=== PATIENT | female | born 1940 | race Caucasian/White ===

== ENCOUNTER 2017-06-16 15:52 | Emergency (ER) | payer MEDICARE ==
[2017-06-16 16:14] VITALS: BP 145/83; PULSE 102; TEMP 98; BMI 35.5
--- NOTE | 2017-06-16 18:43 | PDOC ---
Attending Attestation - Resident Resident Name: MitchmartinMark - ED Attending Attestation I have performed the following: I have examined & evaluated the patient, The case was reviewed & discussed with the resident, I agree w/resident's findings & plan, Exceptions are as noted - HPI HPI: 06/16/17 18:31 76 year old female c/ history of HTN, HLD from [facility] requesting exchange of left volar splint wrist. The patient recently had a fall and sustained a left ankle and left wrist fracture. The patient was seen at [facility] where she was treated with surgery with pins in left ankle and left wrist. Yesterday, pt went to [facility] yesterday to get the splint exchanged because it was causing her discomfort. Noted today that the splint was falling off and came into the ED. Requesting a splint change. Stated that several weeks ago had 2 days of antibiotics for UTI. She thought that she needed longer antibiotics. But denies dysuria, urinary frequency. - Physicial Exam PE: 06/16/17 18:45 GENERAL: AAOx3, in no acute distress HEENT: PERRLA/EOMI CV: RRR, +s1, s2 PULM: CTA b/l Abd: soft, nd, nt EXTREMITIES: LLE with cast around ankle. No discomfort noted. Left wrist: 2+ radial pulse. Noted with external pin but no signs of erythema or drainage. - Medical Decision Making 06/16/17 18:43 Vital Signs Temp Pulse Resp BP Pulse Ox 98 F 102 H 20 145/83 98 06/16/17 15:55 06/16/17 15:55 06/16/17 15:55 06/16/17 15:55 06/16/17 15:55 76 year old female presents with left volar splint exchange. The volar splint was exchanged by me. Pt noted to have an external pin that is NONinfected in left wrist protruding from skin. Will obtain a left wrist xray and talk to orthopedics. Will need to discuss if this is part of the surgery/pinning. Will also obtain a UA/UC
--- NOTE | 2017-06-16 18:45 | PDOC ---
History of Present Illness - General Chief Complaint: Pain Stated Complaint: EVALUATION Time Seen by Provider: 06/16/17 15:57 - History of Present Illness Initial Comments: 06/16/17 18:40 76F w/ hx of HTN, HLD, GERD, and herniated disk presenting from [facility] with chief complaint of "my wrist splint is not done right." Pt reports that she broke her wrist and ankle after an injury falling out of a chair a week ago. She received orthopedic surgery at [facility] on both joints. Several days afterwards, pt states that her wrist splint slid fprward, so she went back to [facility] where they reapplied the splint. However, pt reports that it wasn't properly applied, it is very pruritic, and she is worried about underlying infection. Pt also reports fear of having an unresolved UTI for the past week although she denies dysuria and urinary frequency. 06/16/17 18:48 06/16/17 18:50 Past History - Past Medical History Allergies/Adverse Reactions: Allergies Allergy/AdvReac Type Severity Reaction Status Date / Time Penicillins Allergy Severe Swelling Verified 06/16/17 16:14 egg yolk Allergy Verified 06/16/17 16:14 milk AdvReac Verified 06/16/17 16:14 Home Medications: Ambulatory Orders Aspirin [Aspirin EC] 81 mg PO DAILY 09/23/14 Atorvastatin Ca [Lipitor] 20 mg PO HS 09/23/14 Zolpidem Tartrate [Ambien Cr] 12.5 mg PO HS 09/23/14 Furosemide [Lasix] 20 tab PO DAILY 05/22/17 Metoprolol Tartrate 1 tab PO DAILY 05/22/17 Anemia: No Asthma: Yes Cancer: No Cardiac Disorders: Yes (;"MILD TIA IN 2008") CVA: No COPD: No CHF: No Dementia: No Diabetes: No GI Disorders: No Disorders: No HTN: No Hypercholesterolemia: Yes Liver Disease: No Seizures: No Thyroid Disease: Yes ("A LITTLE LOW" - NO MEDS) Comment:: 06/16/17 18:43 PMH: bone spur, asthma PSH: knee surgery, hemmorroidectomy MEds: aspirin, statin, zolpidem, lasix, metoprolol, tylenol, percocet, Allergies: PCN, Z-pack\\ Social Hx: denies toxic habits - Surgical History Abdominal Surgery: No Appendectomy: No Cardiac Surgery: No Cholecystectomy: No Lung Surgery: No Neurologic Surgery: No Orthopedic Surgery: Yes (ARTHROSCOPY BILATERAL KNEE; CARPAL TUNNEL LEFT;) - Psycho/Social/Smoking Cessation Hx Suicidal Ideation: No Smoking History: Never smoked Have you smoked in the past 12 months: No Hx Alcohol Use: Yes (SELDOM) Drug/Substance Use Hx: No Substance Use Type: Alcohol Hx Substance Use Treatment: No Review of Systems - Review of Systems Comments:: 06/16/17 18:44 GENERAL: No fever, chills, night sweats, or weakness. HEAD, EYES, EARS, NOSE AND THROAT: No change in vision, ear pain, or sore throat CARDIOVASCULAR: No chest pain or palpitations RESPIRATORY: No cough, wheezing, or hemoptysis. GASTROINTESTINAL: + nausea, no vomiting, diarrhea, constipation, or blood in the stool. GENITOURINARY: No dysuria, frequency, or urgency MUSCULOSKELETAL: + joint or muscle swelling or pain. SKIN: No rashes, + pruritis ENDOCRINE: No increased thirst. No abnormal weight change NEUROLOGIC: No headache, dizziness, loss of consciousness, or change in strength /sensation. *Physical Exam - Vital Signs Last Vital Signs Temp Pulse Resp BP Pulse Ox 98 F 102 H 20 145/83 98 06/16/17 15:55 06/16/17 15:55 06/16/17 15:55 06/16/17 15:55 06/16/17 15:55 - Physical Exam Comments: 06/16/17 18:45 GENERAL: Awake, alert, and fully oriented, in mild distress HEAD: normocephalic, atraumatic HEENT: PERRLA, EOMI, sclera anicteric, conjunctiva clear, hearing grossly normal , nares patent, oropharynx clear without exudate, moist mucosa NECK: Normal ROM, supple, no lymphadenopathy, JVD, or masses HEART: Regular rate and rhythm, normal S1 and S2, no murmurs, rubs or gallops, peripheral pulses normal and equal bilaterally. LUNGS: CTAB, no wheezing, no rales ABDOMEN: Soft, mildly tender in suprapubic region, nondistended, normoactive bowel sounds. No guarding, no rebound. No masses EXTREMITIES: L wrist splint was removed revealing a clean, dry healing scar with external pins. No erythema, non-warm to touch, no swelling. NEUROLOGICAL: Cranial nerves II through XII grossly intact. Normal speech, no focal sensorimotor deficits Medical Decision Making - Medical Decision Making 06/16/17 18:49 76F w/ hx of HTN, HLD, GERD, and herniated disk presenting from [facility] with chief complaint of "my wrist splint is not done right." L wrist splint was removed, and a new volar splint was applied. An chava bandage was applied to her R elbow to reduce her pain. UA: 1+ leuk esterase Wrist XR: shows 2 pins in distal radius 06/16/17 18:51 06/16/17 19:04
[2017-06-16 18:51] LABS: URINE APPEARANCE CLEAR; URINE BILIRUBIN NEGATIVE (NEGATIVE); URINE BLOOD NEGATIVE (NEGATIVE); URINE COLOR LTYELLOW; URINE GLUCOSE (UA) NEGATIVE (NEGATIVE); URINE KETONE NEGATIVE (NEGATIVE); URINE NITRITE NEGATIVE (NEGATIVE); URINE PROTEIN NEGATIVE (NEGATIVE); URINE UROBILINOGEN NEGATIVE mg/dL (0.2-1.0)
[2017-06-16 18:56] LABS: URINE LEUK ESTERASE 1+ (NEGATIVE)
--- NOTE | 2017-06-16 19:59 | PDOC ---
*Physical Exam - Vital Signs Last Vital Signs Temp Pulse Resp BP Pulse Ox 98 F 102 H 20 145/83 98 06/16/17 15:55 06/16/17 15:55 06/16/17 15:55 06/16/17 15:55 06/16/17 15:55 ED Treatment Course - ADDITIONAL ORDERS Additional order review: Laboratory Results 06/16/17 18:05 Urine Color Ltyellow Urine Appearance Clear Urine pH 5.0 Urine Protein Negative Urine Glucose (UA) Negative Urine Ketones Negative Urine Blood Negative Urine Nitrite Negative Urine Bilirubin Negative Urine Urobilinogen Negative Ur Leukocyte Esterase 1+ H Medical Decision Making - Medical Decision Making 06/16/17 19:51 Left wrist xray reviewed, pending official radiology read. Distal radius fracture s/p pinning. Case discussed with orthopedist Chad Paige. States that these external pins are part of the procedure. She can get the pins pulled out as an outpatient by her orthopedist. UA noted with 1+ leuk. Will discharge with levaquin. New volar splint placed. Case discussed with nurse at [facility]. [facility] 06/16/17 19:54 As of note: senior living note: 06/13: admitted to [facility]. Had L radial metaphysis and L fibula fracture. Had ORIF and closed reduction on 06/09. Hx of HTN, asthma, GERD, hypothyroidism, HLD. *DC/Admit/Observation/Transfer Diagnosis at time of Disposition: UTI (urinary tract infection) Qualifiers: Urinary tract infection type: site unspecified Hematuria presence: without hematuria Qualified Code(s): N39.0 - Urinary tract infection, site not specified Left wrist fracture Qualifiers: Encounter type: initial encounter Fracture type: closed Qualified Code(s): S62.102A - Fracture of unspecified carpal bone, left wrist, initial encounter for closed fracture - Discharge Dispostion Disposition: [facility]ILITY Condition at time of disposition: Good - Referrals Referrals: Imani Lim MD [Primary Care Provider] - - Patient Instructions Printed Discharge Instructions: DI for Wrist Fracture, DI for Urinary Tract Infection (UTI) Additional Instructions: Take 500 mg levofloxacin daily for 5 days. Start on 06/17. Patient received first dose today. Take 1 tablet of percocet every 6 to 8 hours as needed for severe pain x 3 days. Take 1 tablet of 5 mg flexeril every 8 hours as needed for pain x 3 days. Follow up with the orthopedist. A new splint was applied here in the ER.
[2017-06-16 20:03] LABS: URINE MUCUS RARE; URINE RBC 1 /hpf (0-3); URINE WBC 7 /hpf (3-5)
[2017-06-16] MEDS ORDERED: LEVOFLOXACIN 500 MG TABLET (FP) PO ONE (21:39)
[2017-06-16] MEDS ORDERED: LEVOFLOXACIN 500 MG TABLET (FP) ONE (22:00)
== END 2017-06-16 22:45 ==
LOC: JER 15:52
PROC: 2W3DX1Z Immobilization of Left Lower Arm using Splint (ICD-10-PCS; principal; 2017-06-16)
DX: S52.592D Other fractures of lower end of left radius, subsequent encounter for closed fracture with routine healing (principal); N39.0 Urinary tract infection, site not specified; W19.XXXD Unspecified fall, subsequent encounter; I10 Essential (primary) hypertension; E78.00 Pure hypercholesterolemia, unspecified; K21.9 Gastro-esophageal reflux disease without esophagitis
CPT/HCPCS: 29125; 73110-TC-LT; 81003; 81015; 87086; 99283-25

== ENCOUNTER 2017-10-10 14:20 | Emergency (ER) | payer MEDICARE ==
[2017-10-10 15:11] VITALS: BMI 33.0
[2017-10-10] MEDS ORDERED: ACETAMINOPHEN 500 MG TABLET (FP) PO ONE (15:34)
[2017-10-10] MEDS ORDERED: ACETAMINOPHEN 325 MG TABLET (FP) ONE (15:40)
--- NOTE | 2017-10-10 16:01 | PDOC ---
History of Present Illness - General Chief Complaint: Weakness Stated Complaint: FALL Time Seen by Provider: 10/10/17 14:56 - History of Present Illness Initial Comments: 10/10/17 15:56 "The patient is a 77 year old female resident from [facility] ( discharged today), with a significant past medical history of HTN, HLD who presents to the emergency department with generalized weakness. Patient was discharged from [place], where she had been residing for 3 motns, and arrived home today. Upon arrival, patient went to use the restroom but was unable to lift herself off the seat afterwards. She lowered herself to the ground. Denies falling, denies headstrike/LOC. Pt states she sat on the floor until help arrived. Pt states that she is normally wheelchair bound and is unable to ambulate unassisted. She was supposed to have a MACHINE SET UP today, but due to insurance issues, she will not have a MACHINE SET UP until tomorrow. Pt has no complaints at this time. Patient denies chest pain, headache or dizziness. Patient denies fever, chills, abdominal pain, nausea, vomit, diarrhea or constipation. Patient denies dysuria , frequency, urgency or hematuria. Patient denies sick contacts or recent travel. Past History - Past Medical History Allergies/Adverse Reactions: Allergies Allergy/AdvReac Type Severity Reaction Status Date / Time Penicillins Allergy Severe Swelling Verified 10/10/17 15:17 egg yolk Allergy Verified 10/10/17 15:17 milk AdvReac Verified 10/10/17 15:17 Home Medications: Ambulatory Orders Alendronate Na [Fosamax] 70 mg PO Q7D 10/10/17 Atorvastatin Ca [Lipitor] 20 mg NR DAILY 10/10/17 Famotidine 10 mg PO DAILY 10/10/17 Levothyroxine [Synthroid -] 25 mcg PO DAILY 10/10/17 Metoprolol Tartrate 25 mg PO DAILY 10/10/17 Mometasone Furoate 50 mcg PO BID 10/10/17 Montelukast Na [Singulair -] 10 mg PO DAILY 10/10/17 Omeprazole 10 mg PO DAILY 10/10/17 Trazodone HCl 100 mg PO DAILY 10/10/17 Anemia: No Asthma: Yes Cancer: No Cardiac Disorders: Yes (;"MILD TIA IN 2008") CVA: No COPD: No CHF: No Dementia: No Diabetes: No GI Disorders: No Disorders: Yes (GERD) HTN: No Hypercholesterolemia: Yes Liver Disease: No Seizures: No Thyroid Disease: Yes ("A LITTLE LOW" - NO MEDS) - Surgical History Abdominal Surgery: No Appendectomy: No Cardiac Surgery: No Cholecystectomy: No Lung Surgery: No Neurologic Surgery: No Orthopedic Surgery: Yes (ARTHROSCOPY BILATERAL KNEE; CARPAL TUNNEL LEFT;) - Immunization History Immunization Up to Date: Yes - Suicide/Smoking/Psychosocial Hx Smoking History: Unknown if ever smoked Have you smoked in the past 12 months: No Information on smoking cessation initiated: No Hx Alcohol Use: Yes (Occasional) Drug/Substance Use Hx: No Substance Use Type: Alcohol Hx Substance Use Treatment: No Review of Systems - Review of Systems Comments:: 10/10/17 16:00 "GENERAL/CONSTITUTIONAL: +generalized weakness. No fever or chills. HEAD, EYES, EARS, NOSE AND THROAT: No change in vision. No ear pain or discharge. No sore throat. CARDIOVASCULAR: No chest pain or shortness of breath. RESPIRATORY: No cough, wheezing, or hemoptysis. GASTROINTESTINAL: No nausea, vomiting, diarrhea or constipation. GENITOURINARY: No dysuria, frequency, or change in urination. MUSCULOSKELETAL: No joint or muscle swelling or pain. No neck or back pain. SKIN: No rash NEUROLOGIC: No headache, vertigo, loss of consciousness, or change in strength/ sensation. ENDOCRINE: No increased thirst. No abnormal weight change. HEMATOLOGIC/LYMPHATIC: No anemia, easy bleeding, or history of blood clots. ALLERGIC/IMMUNOLOGIC: No hives or skin allergy. " *Physical Exam - Vital Signs Last Vital Signs Temp Pulse Resp BP Pulse Ox 97.5 F L 74 14 124/75 96 10/10/17 14:57 10/10/17 14:57 10/10/17 14:57 10/10/17 14:57 10/10/17 14:57 - Physical Exam Comments: 10/10/17 16:01 "GENERAL: Awake, alert, and fully oriented, in no acute distress HEAD: No signs of trauma EYES: PERRLA, EOMI, sclera anicteric, conjunctiva clear ENT: Auricles normal inspection, hearing grossly normal, nares patent, oropharynx clear without exudates. Moist mucosa NECK: Nontender, no stepoffs, Normal ROM, supple, no lymphadenopathy, JVD, or masses LUNGS: Breath sounds equal, clear to auscultation bilaterally. No wheezes, and no crackles HEART: Regular rate and rhythm, normal S1 and S2, no murmurs, rubs or gallops ABDOMEN: Soft, nontender, normoactive bowel sounds. No guarding, no rebound. No masses EXTREMITIES: Normal range of motion, no edema. No clubbing or cyanosis. No cords, erythema, or tenderness NEUROLOGICAL: Cranial nerves II through XII intact. 5/5 strength and sensation in all extremities, Normal speech, normal gait SKIN: Warm, Dry, normal turgor, no rashes or lesions noted. " ED Treatment Course - LABORATORY CBC & Chemistry Diagram: 10/10/17 15:20 10/10/17 16:00 - RADIOLOGY Radiology Studies Ordered: Category Date Time Status HEAD CT WITHOUT CONTRAST [CT] Stat CT Scan 10/10/17 15:32 Ordered CHEST PA & LAT [RAD] Stat Radiology 10/10/17 15:20 Ordered Medical Decision Making - Medical Decision Making 10/10/17 16:02 77 F with generalized weakness, likely deconditioned 2/2 prolonged stay in nursing facility. Pt denies any acute onset of weakness. Pt with no acute complaints in ER. Normal neuro exam. Normal vitals. No evidence of infectious process or toxic/metabolic derangement as etiology of weakness. - Labs, UA - SW to confirm home health aide services 10/10/17 18:36 CBC,CMP WBC 10.9 K/mm3 (4.0-10.0) H 10/10/17 15:20 RBC 4.29 M/mm3 (3.60-5.2) 10/10/17 15:20 Hgb 13.4 GM/dL (10.7-15.3) 10/10/17 15:20 Hct 39.4 % (32.4-45.2) 10/10/17 15:20 MCV 91.9 fl (80-96) 10/10/17 15:20 MCH 31.3 pg (25.7-33.7) 10/10/17 15:20 MCHC 34.0 g/dl (32.0-36.0) 10/10/17 15:20 RDW 13.8 % (11.6-15.6) 10/10/17 15:20 Plt Count 224 K/MM3 (134-434) 10/10/17 15:20 MPV 8.5 fl (7.5-11.1) 10/10/17 15:20 Neutrophils % 63.7 % (42.8-82.8) 10/10/17 15:20 Lymphocytes % 28.4 % (8-40) 10/10/17 15:20 Monocytes % 5.7 % (3.8-10.2) 10/10/17 15:20 Eosinophils % 1.5 % (0-4.5) 10/10/17 15:20 Basophils % 0.7 % (0-2.0) 10/10/17 15:20 Sodium 139 mmol/L (136-145) 10/10/17 16:00 Potassium 4.0 mmol/L (3.5-5.1) 10/10/17 16:00 Chloride 105 mmol/L (98-107) 10/10/17 16:00 Carbon Dioxide 27 mmol/L (21-32) 10/10/17 16:00 Anion Gap 7 (8-16) L 10/10/17 16:00 BUN 14 mg/dL (7-18) 10/10/17 16:00 Creatinine 0.7 mg/dL (0.55-1.02) 10/10/17 16:00 Creat Clearance w eGFR > 60 (>60) 10/10/17 16:00 Random Glucose 103 mg/dL (74-106) 10/10/17 16:00 Calcium 8.6 mg/dL (8.5-10.1) 10/10/17 16:00 Total Bilirubin 0.5 mg/dL (0.2-1.0) 10/10/17 16:00 AST 8 U/L (15-37) L 10/10/17 16:00 ALT 17 U/L (12-78) 10/10/17 16:00 Alkaline Phosphatase 129 U/L (45-117) H 10/10/17 16:00 Creatine Kinase 35 IU/L (26-192) 10/10/17 16:00 Troponin I < 0.02 ng/ml (0.00-0.05) 10/10/17 16:00 Total Protein 6.8 g/dl (6.4-8.2) 10/10/17 16:00 Albumin 3.3 g/dl (3.4-5.0) L 10/10/17 16:00 TSH 2.66 uIU/ml (0.358-3.74) 10/10/17 16:00 Labs unremarkable. CXR and Head CT wnl. UA negative. Pt reassessed - states that she continues to feel well. Pt states that she feels comfortable going home at this time. Per pt report, she has a MACHINE SET UP coming to assist her in the morning, though we were unable to confirm this. Nonetheless , pt wishes to go home. I had lengthy discussion with pt about her safety at home, and she understands that she should activate EMS if she feels unable to care for herself. Pt is well appearing with normal vitals. Labs and imaging unremarkable. Clinically stable for DC at this time. *DC/Admit/Observation/Transfer Diagnosis at time of Disposition: Weakness - Discharge Dispostion Disposition: HOME - Referrals Referrals: Imani Lim MD [Primary Care Provider] - - Patient Instructions Printed Discharge Instructions: DI for Muscle Weakness Additional Instructions: Your bloodwork and tests were all normal today. You should have a home health aide coming to assist you tomorrow. If the aide does not show up and you find you are unable to care for yourself, call 911 and return to the ER. If you experience any fevers, pain, or worsening symptoms, return to the ER immediately. Otherwise, follow up with your primary doctor within 1 week. - Post Discharge Activity - Attestations Physician Attestion: 10/10/17 19:36 I, Dr. Shashi Marin MD, attest that this document has been prepared under my direction and personally reviewed by me in its entirety. I further attest, that it accurately reflects all work, treatment, procedures and medical decision -making performed by me.
[2017-10-10 16:19] LABS: BASOPHIL 0.7 % (0-2.0); EOSINOPHIL 1.5 % (0-4.5); MCH 31.3 pg (25.7-33.7); MEAN CELL VOLUME 91.9 fl (80-96); MEAN PLT VOLUME 8.5 fl (7.5-11.1); NEUTROPHILS 63.7 % (42.8-82.8); PLATELET COUNT 224 K/MM3 (134-434); RDW 13.8 % (11.6-15.6); WHITE BLOOD COUNT 10.9 K/mm3 (4.0-10.0)
[2017-10-10 16:48] LABS: ALBUMIN 3.3 g/dl (3.4-5.0); ALK PHOS 129 U/L (45-117); ANION GAP 7 (8-16); BILIRUBIN,TOTAL 0.5 mg/dL (0.2-1.0); CALCIUM 8.6 mg/dL (8.5-10.1); CO2 27 mmol/L (21-32); CPK 35 IU/L (26-192); CREATININE 0.7 mg/dL (0.55-1.02); GLUCOSE,RANDOM 103 mg/dL (74-106); SGOT/AST 8 U/L (15-37); SGPT/ALT 17 U/L (12-78); TOT PROT 6.8 g/dl (6.4-8.2); TROPONIN I < 0.02 ng/ml (0.00-0.05)
[2017-10-10 16:56] LABS: THYROID STIMULATING HORMONE 2.66 uIU/ml (0.358-3.74)
[2017-10-10 19:02] VITALS: BP 124/76; PULSE 78; TEMP 97.6
[2017-10-10 19:19] LABS: URINE APPEARANCE SLCLOUDY; URINE BILIRUBIN NEGATIVE (NEGATIVE); URINE BLOOD NEGATIVE (NEGATIVE); URINE COLOR YELLOW; URINE GLUCOSE (UA) NEGATIVE (NEGATIVE); URINE KETONE NEGATIVE (NEGATIVE); URINE NITRITE NEGATIVE (NEGATIVE); URINE PROTEIN NEGATIVE (NEGATIVE); URINE UROBILINOGEN NEGATIVE mg/dL (0.2-1.0)
[2017-10-10 19:20] LABS: URINE LEUK ESTERASE 3+ (NEGATIVE)
[2017-10-10 19:57] LABS: URINE BACTERIA FEW /hpf (NONE SEEN); URINE MUCUS RARE; URINE RBC <1 /hpf (0-3); URINE WBC 11 /hpf (3-5)
[2017-10-10 22:45] LABS: URINE LEUK ESTERASE 2+ (NEGATIVE)
--- NOTE | 2017-10-11 11:38 | EKG ---
Test Reason : Blood Pressure : / mmHG Vent. Rate : 068 BPM Atrial Rate : 068 BPM P-R Int : 200 ms QRS Dur : 098 ms QT Int : 424 ms P-R-T Axes : 053 035 072 degrees QTc Int : 450 ms NORMAL SINUS RHYTHM LOW VOLTAGE QRS NONSPECIFIC T WAVE ABNORMALITY ABNORMAL ECG NO PREVIOUS ECGS AVAILABLE Confirmed by SUSAN DAVIS MD ([id number]) on 10/11/2017 11:38:24 AM Referred By: Confirmed By:SUSAN DAVIS MD
== END 2017-10-10 23:23 | disposition home or self-care (01) ==
LOC: JER 14:20
DX: M62.81 Muscle weakness (generalized) (principal); K21.9 Gastro-esophageal reflux disease without esophagitis; E78.00 Pure hypercholesterolemia, unspecified; Z86.73 Personal history of transient ischemic attack (TIA), and cerebral infarction without residual deficits; Z99.3 Dependence on wheelchair
CPT/HCPCS: 36415; 70450-TC; 71010-TC; 80053; 81003; 81015; 82550; 84443; 84484; 85025; 87086; 93005; 93010; 99283-25

== ENCOUNTER 2017-10-11 17:54 | Observation (INO) | payer MEDICARE ==
--- NOTE | 2017-10-11 18:10 | PDOC ---
History of Present Illness - General Chief Complaint: Injury Stated Complaint: FALL/PAIN Time Seen by Provider: 10/11/17 18:09 - History of Present Illness Initial Comments: 10/11/17 18:13 Ms. Child is a 77 yo female discharged yesterday from [facility] with pmh of HTN, HLD, osteoarthritis, fracture in leg/wrist in may, and who presented yesterday for evaluation with generalized weakness with no acute findings. Patient arrived home yesterday after a 3 month rehab for above leg/ wrist fracture. Presented for evaluation in the ER for generalized weakness and was discharged home after being evaluated and reporting resolution of symptoms. She presents today as she reports leaning forward and slipping out of her wheelchair earlier this evening and somehow landing on her back and head. She reports pain at these two areas. Also reports currently being sensitive to light currently. The patient denies chest pain, shortness of breath, and dizziness. Denies fever , chills, nausea, vomit, diarrhea and constipation. Denies dysuria, frequency, urgency and hematuria. Allergies: Penicillin Past History - Past Medical History Allergies/Adverse Reactions: Allergies Allergy/AdvReac Type Severity Reaction Status Date / Time Penicillins Allergy Severe Swelling Verified 10/11/17 18:27 egg yolk Allergy Verified 10/11/17 18:27 milk AdvReac Verified 10/11/17 18:27 Home Medications: Ambulatory Orders Alendronate Na [Fosamax] 70 mg PO Q7D 10/10/17 Atorvastatin Ca [Lipitor] 20 mg NR DAILY 10/10/17 Famotidine 10 mg PO DAILY 10/10/17 Levothyroxine [Synthroid -] 25 mcg PO DAILY 10/10/17 Metoprolol Tartrate 25 mg PO DAILY 10/10/17 Mometasone Furoate 50 mcg PO BID 10/10/17 Montelukast Na [Singulair -] 10 mg PO DAILY 10/10/17 Omeprazole 10 mg PO DAILY 10/10/17 Trazodone HCl 100 mg PO DAILY 10/10/17 Anemia: No Asthma: Yes Cancer: No Cardiac Disorders: Yes (;"MILD TIA IN 2008") CVA: No COPD: No CHF: No Dementia: No Diabetes: No GI Disorders: No Disorders: No HTN: No Hypercholesterolemia: Yes Liver Disease: No Seizures: No Thyroid Disease: Yes ("A LITTLE LOW" - NO MEDS) - Surgical History Abdominal Surgery: No Appendectomy: No Cardiac Surgery: No Cholecystectomy: No Lung Surgery: No Neurologic Surgery: No Orthopedic Surgery: Yes (ARTHROSCOPY BILATERAL KNEE; CARPAL TUNNEL LEFT;) - Immunization History Immunization Up to Date: Yes - Suicide/Smoking/Psychosocial Hx Smoking History: Never smoked Have you smoked in the past 12 months: No Hx Alcohol Use: Yes (SELDOM) Drug/Substance Use Hx: No Substance Use Type: Alcohol Hx Substance Use Treatment: No Review of Systems - Review of Systems Comments:: 10/11/17 18:44 GENERAL/CONSTITUTIONAL: +Generalized weakness for the last day. No fever or chills. HEAD, EYES, EARS, NOSE AND THROAT: No change in vision. No ear pain or discharge. No sore throat. CARDIOVASCULAR: No chest pain or shortness of breath RESPIRATORY: No cough, wheezing, or hemoptysis. GASTROINTESTINAL: No nausea, vomiting, diarrhea or constipation. GENITOURINARY: No dysuria, frequency, or change in urination. MUSCULOSKELETAL: +KANE Knee swelling with pain reported to knees, bottom, neck, and right side of head. SKIN: No rash NEUROLOGIC: +Current headache, no vertigo, no loss of consciousness. ENDOCRINE: No increased thirst. No abnormal weight change HEMATOLOGIC/LYMPHATIC: No anemia, easy bleeding, or history of blood clots. ALLERGIC/IMMUNOLOGIC: No hives or skin allergy. *Physical Exam - Physical Exam Comments: 10/11/17 18:44 GENERAL: Awake, alert, and fully oriented, in no acute distress HEAD: No signs of trauma, normocephalic, atraumatic EYES: PERRLA, EOMI, sclera anicteric, conjunctiva clear ENT: Auricles normal inspection, hearing grossly normal, nares patent, oropharynx clear without exudates. Moist mucosa NECK: +Midline neck tenderness to palpation. LUNGS: No distress, speaks full sentences, clear to auscultation bilaterally HEART: Regular rate and rhythm, normal S1 and S2, no murmurs, rubs or gallops, peripheral pulses normal and equal bilaterally. ABDOMEN: Soft, nontender, normoactive bowel sounds. No guarding, no rebound. No masses EXTREMITIES: +Bilateral knee swelling appreciated. NEUROLOGICAL: Cranial nerves II through XII grossly intact. Normal speech, normal gait, no focal sensorimotor deficits SKIN: Warm, Dry, normal turgor, no rashes or lesions noted. ED Treatment Course - LABORATORY CBC & Chemistry Diagram: 10/11/17 19:49 10/11/17 19:49 Medical Decision Making - Medical Decision Making 10/11/17 19:03 Patient signed out to Dr. Pate for further care. *DC/Admit/Observation/Transfer Diagnosis at time of Disposition: Weakness UTI (urinary tract infection) Qualifiers: Urinary tract infection type: site unspecified Hematuria presence: without hematuria Qualified Code(s): N39.0 - Urinary tract infection, site not specified Fall Qualifiers: Encounter type: initial encounter Qualified Code(s): W19.XXXA - Unspecified fall, initial encounter - Discharge Dispostion Condition at time of disposition: Fair Admit: Yes - Referrals - Patient Instructions - Post Discharge Activity
[2017-10-11 18:27] VITALS: BMI 33.0
[2017-10-11] MEDS ORDERED: ACETAMINOPHEN 1000 MG/100 ML VIAL (NON FORMULARY) IVPB ONE (18:43)
--- NOTE | 2017-10-11 19:13 | PDOC ---
Attending Attestation - HPI HPI: 10/11/17 19:37 77 year old female with PMH of frequent falls and was discharged yesterday from 3 months of rehab s/p leg and wrist fracture. The patient presents today with neck pain and knee pain s/p fall this morning. The patient reports that she landed on her knees, but also hit the back of her head. She notes that she was supposed to have a home health aid to help her get around at home, however the aid does not start until tomorrow 10/12/17. <Sheri Baker - Last Filed: 10/11/17 19:36> - Resident Resident Name: Jacob Modi - ED Attending Attestation I have performed the following: I have examined & evaluated the patient, The case was reviewed & discussed with the resident, I agree w/resident's findings & plan, Exceptions are as noted - Physicial Exam PE: 10/11/17 23:51 gen: [id number], uncomfortable head: nc/at neck: no midline ttp heart:" +s1s2 reg Lungs: cta b/l abd: soft, mild suprapubic ttp ext: ecchymosis to R knee, ttp over b/l knees neuro: no focal deficits, cn intact, moving all extremities - Medical Decision Making 10/11/17 19:13 I, Dr. Rachael Pate, DO, attest that this document has been prepared under my direction and personally reviewed by me in its entirety. I further attest, that it accurately reflects all work, treatment, procedures and medical decision -making performed by me. 10/11/17 19:16 a/p: 77yo female s/p fall out of wheelchair -concern for freq falls and home alone -labs suprapubic tenderness, poss uti as cause of weakness has home health aide coming tomorrow will check ekg, cxr, xray spine, knees, ct head and c spine 10/11/17 23:27 pt with uti on labs ct head and c spine negative discussed with [facility] who accepts pt under dr. quinteros at this time, but will switch back to Dr. Rose tomorrow. 10/11/17 23:49 pt agreeable to stay for obs and to accept iv abx <Rachael Pate - Last Filed: 10/11/17 23:54> Discharge Disposition <Sheri Baker - Last Filed: 10/11/17 19:36> - Discharge Dispostion Admit: Yes <Rachael Pate - Last Filed: 10/11/17 23:54> - Diagnosis Weakness, Fall UTI (urinary tract infection) Qualifiers: Urinary tract infection type: site unspecified Hematuria presence: without hematuria Qualified Code(s): N39.0 - Urinary tract infection, site not specified - Discharge Dispostion Condition at time of disposition: Fair - Referrals Referrals: Imani Lim MD [Primary Care Provider] - - Patient Instructions - Post Discharge Activity Heart Score/ECG Review - ECG Intrepretation Comment:: 10/11/17 19:16 sinus tach at 108, nl axis, nl interval, no acute st/t wave findings <Rachael Pate - Last Filed: 10/11/17 23:54>
[2017-10-11] MEDS ORDERED: SODIUM CHLORIDE 0.9% 1000 ML INFUS.BAG IV ONE (19:18)
[2017-10-11] MEDS ORDERED: ACETAMINOPHEN INJECTION 100 ML IVPB ONE (19:36)
[2017-10-11 20:03] LABS: BASO % 0.5 % (0-2.0); EOS % 0.8 % (0-4.5); MCH 31.2 pg (25.7-33.7); MCHC 33.8 g/dl (32.0-36.0); MEAN CELL VOLUME 92.2 fl (80-96); MEAN PLT VOLUME 8.5 fl (7.5-11.1); NEUT % 69.8 % (42.8-82.8); PLATELET COUNT 221 K/MM3 (134-434)
[2017-10-11 20:31] LABS: ALBUMIN 3.2 g/dl (3.4-5.0); ANION GAP 8 (8-16); BILIRUBIN,TOTAL 0.8 mg/dL (0.2-1.0); CALCIUM 8.7 mg/dL (8.5-10.1); CO2 25 mmol/L (21-32); CREATININE 0.7 mg/dL (0.55-1.02); GLUCOSE,RANDOM 95 mg/dL (74-106); SGPT/ALT 17 U/L (12-78); TOT PROT 6.8 g/dl (6.4-8.2)
[2017-10-11 20:33] LABS: ALK PHOS 109 U/L (45-117); TROPONIN I < 0.02 ng/ml (0.00-0.05)
[2017-10-11 20:37] LABS: CPK 65 IU/L (26-192); SGOT/AST 16 U/L (15-37)
[2017-10-11 23:12] LABS: URINE APPEARANCE CLEAR; URINE BILIRUBIN NEGATIVE (NEGATIVE); URINE BLOOD NEGATIVE (NEGATIVE); URINE COLOR LT. YELLOW; URINE GLUCOSE (UA) NEGATIVE (NEGATIVE); URINE KETONE TRACE (NEGATIVE); URINE LEUK ESTERASE NEGATIVE (NEGATIVE); URINE PROTEIN NEGATIVE (NEGATIVE); URINE UROBILINOGEN 0.2 mg/dL (0.2-1.0)
[2017-10-11 23:18] LABS: URINE NITRITE POSITIVE (NEGATIVE)
[2017-10-11 23:21] LABS: URINE BACTERIA FEW /hpf (NONE SEEN); URINE MUCUS RARE; URINE RBC 14 /hpf (0-3); URINE WBC 28 /hpf (3-5)
[2017-10-11] MEDS ORDERED: CIPROFLOXACIN 400 MG/D5W 400 MG/200 ML IVPB IVPB ONE (23:27)
--- NOTE | 2017-10-11 23:28 | HP ---
Admitting History and Physical - Primary Care Physician PCP: Cristhian Rose - Admission Chief Complaint: Neck, B/L Knee Pain History of Present Illness: This is a 77 y/o woman from home with a past medical history of HTN, HLD, TIA ( 2008), Diverticulosis, recently discharged 2 days ago from [facility] s/p leg/wrist fx. Who presents to the ED by ambulance with s/p fall out of wheelchair c/o B/L knee and neck pain. Patient reports landing on her knees, but that she hit the back of her head. Patient reports that she lives alone and is suppose to have a CIGARETTE MAKING MACHINE CATCHER come to her house on 10/12. Patient denies LOC, blurred vision or dizziness. Patient denies fever, chills, cough, SOB, CP, N/V/D , constipation. 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 Cardiovascular: Yes: HTN, Hyperlipdemia Gastrointestinal: Yes: Diverticulosis Musculoskeletal: Yes: Osteoarthritis Endocrine: Yes: Hypothyroidism - Past Surgical History Additional Past Surgical History: Hemorrhoidectomy - Smoking History Smoking history: Never smoked Have you smoked in the past 12 months: No - Alcohol/Substance Use Hx Alcohol Use: Yes (SELDOM) History of Substance Use: reports: None - Social History Usual Living Arrangement: Yes: Alone History of Recent Travel: No Home Medications - Allergies Allergies/Adverse Reactions: Allergies Allergy/AdvReac Type Severity Reaction Status Date / Time Penicillins Allergy Severe Swelling Verified 10/11/17 18:27 egg yolk Allergy Verified 10/11/17 18:27 milk AdvReac Verified 10/11/17 18:27 - Home Medications Home Medications: Ambulatory Orders Alendronate Na [Fosamax] 70 mg PO Q7D 10/10/17 Atorvastatin Ca [Lipitor] 20 mg NR DAILY 10/10/17 Famotidine 10 mg PO DAILY 10/10/17 Levothyroxine [Synthroid -] 25 mcg PO DAILY 10/10/17 Metoprolol Tartrate 25 mg PO DAILY 10/10/17 Mometasone Furoate 50 mcg PO BID 10/10/17 Montelukast Na [Singulair -] 10 mg PO DAILY 10/10/17 Omeprazole 10 mg PO DAILY 10/10/17 Trazodone HCl 100 mg PO DAILY 12/12/17 Review of Systems - Review of Systems Constitutional: reports: No Symptoms Eyes: reports: No Symptoms HENT: reports: No Symptoms Neck: reports: Pain on Movement Cardiovascular: reports: No Symptoms Respiratory: reports: No Symptoms Gastrointestinal: reports: Abdominal Pain Genitourinary: reports: No Symptoms Breasts: reports: No Symptoms Reported Musculoskeletal: reports: Joint Pain (b/l knees) Integumentary: reports: Bruising (R- knee) Neurological: reports: Headache Endocrine: reports: No Symptoms Hematology/Lymphatic: reports: No Symptoms Psychiatric: reports: No Symptoms Pain Intensity: 6 Physical Examination Vital Signs: Vital Signs Temperature 97.6 F 10/11/17 17:54 Pulse Rate 92 H 10/11/17 22:20 Respiratory Rate 18 10/11/17 22:20 Blood Pressure 128/62 10/11/17 22:20 O2 Sat by Pulse Oximetry (%) 100 10/11/17 17:54 Constitutional: Yes: Well Nourished, Obese Eyes: Yes: WNL, Conjunctiva Clear, PERRL HENT: Yes: Atraumatic, Normocephalic, Other (tenderness to mid occiput) Neck: Yes: WNL Cardiovascular: Yes: WNL, Regular Rate and Rhythm, S1, S2 Respiratory: Yes: WNL, Regular, CTA Bilaterally Gastrointestinal: Yes: Abdomen, Obese, Other (suprapubic) Breast(s): Yes: WNL Musculoskeletal: Yes: Other (B/L knee pain) Extremities: Yes: Other (superficial bruise to right knee) Edema: Yes Edema: LLE: 2+, RLE: 2+ Peripheral Pulses WNL: Yes Integumentary: Yes: Bruising (right knee) Neurological: Yes: WNL, Alert, Oriented, Cran Nerves II-XII Intact Psychiatric: Yes: WNL, Alert, Oriented Labs: CBC, BMP 10/11/17 19:49 10/11/17 19:49 Laboratory Results - last 24 hr 10/11/17 10/11/17 10/11/17 19:49 19:49 22:10 WBC 10.0 RBC 4.57 Hgb 14.3 Hct 42.1 MCV 92.2 MCH 31.2 MCHC 33.8 RDW 14.0 Plt Count 221 MPV 8.5 Neutrophils % 69.8 Lymphocytes % 23.3 Monocytes % 5.6 Eosinophils % 0.8 Basophils % 0.5 Sodium 141 Potassium 4.1 Chloride 108 H Carbon Dioxide 25 Anion Gap 8 BUN 14 Creatinine 0.7 Creat Clearance w eGFR > 60 Random Glucose 95 Calcium 8.7 Total Bilirubin 0.8 D AST 16 D ALT 17 Alkaline Phosphatase 109 Creatine Kinase 65 Troponin I < 0.02 Total Protein 6.8 Albumin 3.2 L Urine Color Lt. yellow Urine Appearance Clear Urine pH 6.0 Ur Specific [place] 1.025 Urine Protein Negative Urine Glucose (UA) Negative Urine Ketones Trace H Urine Blood Negative Urine Nitrite Positive Urine Bilirubin Negative Urine Urobilinogen 0.2 Urine WBC (Auto) 28 Urine RBC (Auto) 14 Ur Epithelial Cells Rare Urine Bacteria Few Urine Mucus Rare 10/12/17 10/12/17 07:40 07:40 WBC 6.7 D RBC 3.93 Hgb 12.1 D Hct 36.1 MCV 91.8 MCH 30.7 MCHC 33.4 RDW 13.9 Plt Count 181 MPV 8.5 Neutrophils % 47.8 D Lymphocytes % 40.8 H D Monocytes % 8.2 Eosinophils % 2.5 D Basophils % 0.7 Sodium 142 Potassium 3.9 Chloride 107 Carbon Dioxide 25 Anion Gap 10 BUN 12 Creatinine 0.6 Creat Clearance w eGFR Random Glucose 91 Calcium 8.6 Total Bilirubin AST ALT Alkaline Phosphatase Creatine Kinase Troponin I Total Protein Albumin Urine Color Urine Appearance Urine pH Ur Specific [place] Urine Protein Urine Glucose (UA) Urine Ketones Urine Blood Urine Nitrite Urine Bilirubin Urine Urobilinogen Urine WBC (Auto) Urine RBC (Auto) Ur Epithelial Cells Urine Bacteria Urine Mucus Intake & Output 10/09/17 10/10/17 10/11/17 10/12/17 23:59 23:59 23:59 23:59 Weight 92.986 kg Imaging - Results Chest X-ray: Image Reviewed X-ray: Image Reviewed (bilateral knee, lumbar spine) Cat Scan: Report Reviewed Problem List - Problems (1) Fall Code(s): W19.XXXA - UNSPECIFIED FALL, INITIAL ENCOUNTER Qualifiers: Encounter type: initial encounter Qualified Code(s): W19.XXXA - Unspecified fall, initial encounter (2) Bilateral knee pain Code(s): M25.561 - PAIN IN RIGHT KNEE; M25.562 - PAIN IN LEFT KNEE (3) Neck pain, acute Code(s): M54.2 - CERVICALGIA (4) UTI (urinary tract infection) Code(s): N39.0 - URINARY TRACT INFECTION, SITE NOT SPECIFIED Qualifiers: Urinary tract infection type: site unspecified Hematuria presence: without hematuria Qualified Code(s): N39.0 - Urinary tract infection, site not specified (5) HTN (hypertension) Code(s): I10 - ESSENTIAL (PRIMARY) HYPERTENSION (6) HLD (hyperlipidemia) Code(s): E78.5 - HYPERLIPIDEMIA, UNSPECIFIED (7) History of TIA (transient ischemic attack) Code(s): Z86.73 - PRSNL HX OF TIA (TIA), AND CEREB INFRC W/O RESID DEFICITS (8) DVT prophylaxis Code(s): SLV0139 - Assessment/Plan This is a 77 y/o woman with a PMHx of: HTN, HLD, TIA (2008), Hypothyroid, Diverticulosis. Placed on Observation for placement secondary to s/p Fall, Acute Neck Pain, Bilateral Knee Pain Plan: 1. Fall at home Acute Neck Pain Bilateral Knee Pain - s/p Leg and Wrist Fx- d/cd from Rehab stay x 3 months - Patient lives alone unable to care for herself is wheelchair bound, awaiting CIGARETTE MAKING MACHINE CATCHER assistance - CT Head- neg ICH - CT C-Spine- neg fx - LSP-image reviewed, report pending - Knee Xrays- image reviewed, report pending - Appreciate Case Management Consult for Placement - Fall precautions - Monitor vitals 2. UTI - UA- +Nitrates - Urine Culture-pending - Given Cipro in ED, will d/c concern for tendon rupture in light of recent Leg fx - Will start Microdantin, awaiting culture report 3. Hypertension - Controlled - Continue home med wit parameters - Monitor renal function 4. HLD - Continue Lipitor 5. Hypothyroid - Continue Levothyroxine 6. TIA Continue to monitor treat accordingly 7. Diverticulosis - No active illness 8. FEN - Po Fluids - Replete lytes prn - Low Na , Low Cholesterol Diet Code Status: Full Code Dispo: Observation Visit type - Emergency Visit Emergency Visit: Yes ED Registration Date: 10/11/17 Care time: The patient presented to the Emergency Department on the above date and was hospitalized for further evaluation of their emergent condition. - New Patient This patient is new to me today: Yes Date on this admission: 10/11/17 - Critical Care Critical Care patient: No
[2017-10-11] MEDS ORDERED: KETOROLAC TROMETHAMINE 15 MG/ML VIAL IVPUSH ONE (23:54)
[2017-10-12] MEDS ORDERED: KETOROLAC TROMETHAMINE 15 MG/ML VIAL ONE (00:28)
[2017-10-12 08:54] LABS: WHITE BLOOD COUNT 6.7 K/mm3 (4.0-10.0)
[2017-10-12 08:55] LABS: BASO % 0.7 % (0-2.0); EOS % 2.5 % (0-4.5); MCH 30.7 pg (25.7-33.7); MCHC 33.4 g/dl (32.0-36.0); MEAN CELL VOLUME 91.8 fl (80-96); MEAN PLT VOLUME 8.5 fl (7.5-11.1); NEUT % 47.8 % (42.8-82.8); PLATELET COUNT 181 K/MM3 (134-434); RDW 13.9 % (11.6-15.6)
[2017-10-12] MEDS ORDERED: ACETAMINOPHEN 325 MG TABLET (FP) PO PRN (09:00)
[2017-10-12 09:16] LABS: ANION GAP 10 (8-16); CALCIUM 8.6 mg/dL (8.5-10.1); CO2 25 mmol/L (21-32); CREATININE 0.6 mg/dL (0.55-1.02); GLUCOSE,RANDOM 91 mg/dL (74-106)
[2017-10-12] MEDS ORDERED: PATIENT'S OWN MEDICATION (NON-FORMULARY) (Omeprazole [Omeprazole] 10 MG) PO SCH (10:00)
[2017-10-12] MEDS ORDERED: MOMETASONE FUROATE 50 MCG PO SCH (10:00)
[2017-10-12] MEDS ORDERED: CYCLOBENZAPRINE HCL 5 MG TABLET PO SCH (10:45)
[2017-10-12 10:59] LABS: URINE LEUK ESTERASE Negative (NEGATIVE)
--- NOTE | 2017-10-12 11:33 | EKG ---
Test Reason : Blood Pressure : / mmHG Vent. Rate : 108 BPM Atrial Rate : 108 BPM P-R Int : 174 ms QRS Dur : 092 ms QT Int : 360 ms P-R-T Axes : 051 039 068 degrees QTc Int : 482 ms SINUS TACHYCARDIA LOW VOLTAGE QRS BORDERLINE ECG NO PREVIOUS ECGS AVAILABLE Confirmed by NEO COY MD ([id number]) on 10/12/2017 11:33:15 AM Referred By: Confirmed By:NEO COY MD
[2017-10-12] MEDS: LEVOTHYROXINE NA 25 MCG TABLET (FP) PO SCH (11:46)
[2017-10-12] MEDS: METOPROLOL TARTRATE 25 MG TABLET (FP) PO SCH (11:46)
[2017-10-12] MEDS ORDERED: NITROFURANTOIN MACROCRYSTAL 50 MG CAPSULE (FP) PO SCH (12:00)
[2017-10-12] MEDS: LACTOBACILLUS ACIDOPHILUS 1 EACH TAB (FP) PO SCH (13:25)
[2017-10-12] MEDS: LEVOFLOXACIN 250 MG TABLET (FP) PO SCH (13:25)
--- NOTE | 2017-10-12 14:01 | PN ---
Progress Note, Physician Chief Complaint: Ms Child complains of diffuse pain in her back, arms, hands, abdomen, and legs. Denies cp, sob, n/v. Requesting flexeril. - Current Medication List Current Medications: Active Medications Acetaminophen (Tylenol -) 650 mg PO Q6H PRN PRN Reason: FEVER OR PAIN Atorvastatin Calcium (Lipitor -) 20 mg PO HS PENDING SALE TO [facility] Cyclobenzaprine HCl (Cyclobenzaprine Hcl) 5 mg PO DAILY PENDING SALE TO [facility] Lactobacillus Acidophilus (Bacid -) 1 tab PO DAILY PENDING SALE TO [facility] Last Admin: 10/12/17 13:25 Dose: 1 tab Levofloxacin (Levaquin -) 250 mg PO DAILY@0600 PENDING SALE TO [facility] Last Admin: 10/12/17 13:25 Dose: 250 mg Levothyroxine Sodium (Synthroid -) 25 mcg PO DAILY@0700 PENDING SALE TO [facility] Last Admin: 10/12/17 11:46 Dose: 25 mcg Metoprolol Tartrate (Lopressor -) 25 mg PO DAILY PENDING SALE TO [facility] Last Admin: 10/12/17 11:46 Dose: 25 mg Montelukast Sodium (Singulair -) 10 mg PO HS PENDING SALE TO [facility] Non-Formulary Medication (Mometasone Furoate [Mometasone Furoate]) 50 mcg PO BID PENDING SALE TO [facility] Non-Formulary Medication (Omeprazole [Omeprazole]) 10 mg PO DAILY PENDING SALE TO [facility] - Objective Vital Signs: Vital Signs Temperature 36.3 C L 10/12/17 08:00 Pulse Rate 84 10/12/17 08:00 Respiratory Rate 18 10/12/17 08:00 Blood Pressure 120/80 10/12/17 08:00 O2 Sat by Pulse Oximetry (%) 96 10/12/17 02:40 Constitutional: Yes: No Distress, Calm, Obese Cardiovascular: Yes: Regular Rate and Rhythm. No: Gallop, Murmur, Rub Respiratory: Yes: Regular, CTA Bilaterally. No: Rales, Rhonchi, Wheezes Gastrointestinal: Yes: Normal Bowel Sounds, Soft. No: Distention, Tenderness Extremities: Yes: WNL Edema: No Labs: CBC, BMP 10/12/17 07:40 10/12/17 07:40 Problem List - Problems (1) UTI (urinary tract infection) Assessment/Plan: -patient found to have UTI on urinalysis -given cipro in the ED -will continue oral levaquin since macrobid is not recommended for patients above 65 and has pcn allergy day 2/3 Code(s): N39.0 - URINARY TRACT INFECTION, SITE NOT SPECIFIED Qualifiers: Urinary tract infection type: site unspecified Hematuria presence: without hematuria Qualified Code(s): N39.0 - Urinary tract infection, site not specified (2) Pain Assessment/Plan: -trial of flexeril as patient says she has muscular pain Code(s): R52 - PAIN, UNSPECIFIED (3) Fall Assessment/Plan: -patient says she is wheelchair bound but is able to walk with a walker and assistance so unsure of actual baseline -PT consult, follow up Code(s): W19.XXXA - UNSPECIFIED FALL, INITIAL ENCOUNTER Qualifiers: Encounter type: initial encounter Qualified Code(s): W19.XXXA - Unspecified fall, initial encounter (4) HLD (hyperlipidemia) Assessment/Plan: -continue lipitor Code(s): E78.5 - HYPERLIPIDEMIA, UNSPECIFIED (5) HTN (hypertension) Assessment/Plan: -continue home regimen Code(s): I10 - ESSENTIAL (PRIMARY) HYPERTENSION
[2017-10-12] MEDS ORDERED: ATORVASTATIN CA 20 MG TABLET (FP) PO SCH (22:00)
[2017-10-12] MEDS ORDERED: MONTELUKAST NA 10 MG TABLET PO SCH (22:00)
[2017-10-12] MEDS ORDERED: CYCLOBENZAPRINE HCL 10 MG TABLET (FP) PO ONE (23:15)
[2017-10-13] MEDS: LEVOFLOXACIN 250 MG TABLET (FP) PO SCH (05:20)
[2017-10-13] MEDS: LEVOTHYROXINE NA 25 MCG TABLET (FP) PO SCH (06:29)
[2017-10-13 07:52] LABS: BASO % 0.5 % (0-2.0); EOS % 3.4 % (0-4.5); MCH 30.9 pg (25.7-33.7); MCHC 33.6 g/dl (32.0-36.0); MEAN CELL VOLUME 91.9 fl (80-96); MEAN PLT VOLUME 8.3 fl (7.5-11.1); NEUT % 31.9 % (42.8-82.8); PLATELET COUNT 195 K/MM3 (134-434); RDW 14.1 % (11.6-15.6); WHITE BLOOD COUNT 6.1 K/mm3 (4.0-10.0)
[2017-10-13 08:08] LABS: ANION GAP 8 (8-16); CALCIUM 8.4 mg/dL (8.5-10.1); CO2 26 mmol/L (21-32); CREATININE 0.6 mg/dL (0.55-1.02); GLUCOSE,RANDOM 92 mg/dL (74-106); MAGNESIUM 2.1 mg/dL (1.8-2.4); PHOSPHOROUS 3.7 mg/dL (2.5-4.9)
--- NOTE | 2017-10-13 09:59 | DS ---
Physical Examination Vital Signs: Vital Signs Temperature 36.6 C 10/13/17 06:00 Pulse Rate 72 10/13/17 06:00 Respiratory Rate 18 10/13/17 06:00 Blood Pressure 123/64 10/13/17 06:00 O2 Sat by Pulse Oximetry (%) 96 10/13/17 05:15 Constitutional: Yes: Obese Cardiovascular: Yes: Regular Rate and Rhythm. No: Gallop, Murmur, Rub Respiratory: Yes: Regular, CTA Bilaterally. No: Rales, Rhonchi, Wheezes Gastrointestinal: Yes: Normal Bowel Sounds, Soft. No: Distention, Tenderness Extremities: Yes: WNL Edema: No Labs: CBC, BMP 10/13/17 07:15 10/13/17 07:15 Discharge Summary Reason For Visit: UTI Current Active Problems Bilateral knee pain (Acute) DVT prophylaxis (Acute) Fall (Acute) HLD (hyperlipidemia) (Acute) HTN (hypertension) (Acute) History of TIA (transient ischemic attack) (Acute) Neck pain, acute (Acute) Pain (Acute) UTI (urinary tract infection) (Acute) Weakness (Acute) Hospital Course: (1) UTI (urinary tract infection) Code(s): N39.0 - URINARY TRACT INFECTION, SITE NOT SPECIFIED Qualifiers: Urinary tract infection type: site unspecified Hematuria presence: without hematuria Qualified Code(s): N39.0 - Urinary tract infection, site not specified (2) Pain Code(s): R52 - PAIN, UNSPECIFIED (3) Fall Code(s): W19.XXXA - UNSPECIFIED FALL, INITIAL ENCOUNTER Qualifiers: Encounter type: initial encounter Qualified Code(s): W19.XXXA - Unspecified fall, initial encounter (4) HLD (hyperlipidemia) Code(s): E78.5 - HYPERLIPIDEMIA, UNSPECIFIED (5) HTN (hypertension) Code(s): I10 - ESSENTIAL (PRIMARY) HYPERTENSION Ms Child is a 77 year old female who comes in s/p fall and found to have a UTI. She was admitted under observation to the hospital. She was not septic and tolerated oral antibiotics without problems. She was treated with a fluoroquinolone and required only 3 days of therapy, she finished this course while here in the hospital. She says she is wheelchair bound and attempted to get up alone which caused her falls. She sustained no fractures secondary to the fall. She was seen by PT here and evaluated. Otherwise she was continued on her home regimen. She is safe for discharge today with home PT/HHC. 32 minutes spent in preparation of this discharge Condition: Good - Instructions Diet, Activity, Other Instructions: resume previous diet and activity. Please follow up with Dr Barba within 7 days. Referrals: Imani Lim MD [Primary Care Provider] - Disposition: VNS/HOME HEALTH CARE - Home Medications Comprehensive Discharge Medication List: Ambulatory Orders Alendronate Na [Fosamax (Weekly)] 70 mg PO Q7D 10/10/17 Atorvastatin Ca [Lipitor] 20 mg NR DAILY 10/10/17 Famotidine 10 mg PO DAILY 10/10/17 Levothyroxine [Synthroid -] 25 mcg PO DAILY 10/10/17 Metoprolol Tartrate 25 mg PO DAILY 10/10/17 Mometasone Furoate 50 mcg PO BID 10/10/17 Montelukast Na [Singulair -] 10 mg PO DAILY 10/10/17 Omeprazole 10 mg PO DAILY 10/10/17 Cyclobenzaprine HCl 5 mg PO DAILY #30 tablet 10/13/17 Lactobacillus Acidophilus [Bacid -] 1 tab PO DAILY #7 tab 10/13/17
[2017-10-13] MEDS ORDERED: CYCLOBENZAPRINE HCL 10 MG TABLET (FP) PO SCH (10:00)
[2017-10-13] MEDS ORDERED: MOMETASONE FUROATE 50 MCG NR SCH (10:00)
[2017-10-13] MEDS: METOPROLOL TARTRATE 25 MG TABLET (FP) PO SCH (11:07)
[2017-10-13] MEDS: LACTOBACILLUS ACIDOPHILUS 1 EACH TAB (FP) PO SCH (11:07)
[2017-10-13] MEDS ORDERED: PT OWN MED DRAWER 7, Y5N ONE (12:44)
[2017-10-13 20:24] VITALS: BP 126/63; PULSE 67; TEMP 98.6
== END 2017-10-13 20:00 | disposition home health service (06) ==
LOC: JER 17:54 → JERBED 23:47 → UNDOADMOB 23:52 → JERBED 23:52 → J5S 10-12 04:01
PROVIDERS: ADMIT Internal Medicine; ATTEND Internal Medicine
PROC: 3E03329 Introduction of Other Anti-infective into Peripheral Vein, Percutaneous Approach (ICD-10-PCS; principal; 2017-10-11)
PROC: 3E0337Z Introduction of Electrolytic and Water Balance Substance into Peripheral Vein, Percutaneous Approach (ICD-10-PCS; 2017-10-11)
DX: N39.0 Urinary tract infection, site not specified (principal); R53.1 Weakness; W05.0XXA Fall from non-moving wheelchair, initial encounter; Z91.81 History of falling; Y93.89 Activity, other specified; Y92.9 Unspecified place or not applicable; I10 Essential (primary) hypertension; E78.5 Hyperlipidemia, unspecified; M19.90 Unspecified osteoarthritis, unspecified site; E03.9 Hypothyroidism, unspecified; M25.561 Pain in right knee; M25.562 Pain in left knee; M54.2 Cervicalgia; Z86.73 Personal history of transient ischemic attack (TIA), and cerebral infarction without residual deficits; Z88.0 Allergy status to penicillin; Z91.011 Allergy to milk products; Z91.012 Allergy to eggs; E66.9 Obesity, unspecified; Z68.33 Body mass index [BMI] 33.0-33.9, adult; Z99.3 Dependence on wheelchair
CPT/HCPCS: 36415; 70450-TC; 71010-TC; 72100-TC; 72125-TC; 73560-TC-LT; 73560-TC-RT; 80048; 80053; 81003; 81015; 82550; 83735; 84100; 84484; 85025; 87086; 87186; 93005; 93010; 96365; 96375; 97116-GP; 97162-GP; 99283-25; G0378

== ENCOUNTER 2017-10-14 10:51 | Inpatient (IN) | payer MEDICARE, OTHER ==
[2017-10-14 11:20] VITALS: BMI 33.0
--- NOTE | 2017-10-14 11:35 | PDOC ---
History of Present Illness - History of Present Illness Initial Comments: 10/14/17 11:52 77 y/o F with a PMHx of HTN, HLD, TIA (2008), diverticulosis, osteoarthritis, hypothyroidism presents to the ED from home via EMS with diffuse pain from a fall 4 days ago. Patient was found to also have a UTI and was admitted under observation and discharged home yesterday with a plan for PT and HHC. Patient did not want to be discharged. She states her apartment is not livable and she She complains of neck pain, back pain, hip pain, bilateral knee and ankle pain. Patient is wheelchair bound from previous fractures in 06/15. She states she isnt able to walk and cannot take care of herself. Denies fever, chills. Denies nausea, vomiting, diarrhea. PCP: Dr. Imani Lim <Jennifer Sheehan - Last Filed: 10/14/17 16:22> <Nemo Jackman - Last Filed: 10/15/17 10:51> - General Chief Complaint: Pain Stated Complaint: BACK PAIN Time Seen by Provider: 10/14/17 11:16 Past History <Jennifer Sheehan - Last Filed: 10/14/17 16:22> - Past Medical History Anemia: No Asthma: Yes Cancer: No Cardiac Disorders: Yes (;"MILD TIA IN 2008") CVA: No COPD: No CHF: No Dementia: No Diabetes: No GI Disorders: No Disorders: No HTN: No Hypercholesterolemia: Yes Liver Disease: No Seizures: No Thyroid Disease: Yes ("A LITTLE LOW" - NO MEDS) - Surgical History Abdominal Surgery: No Appendectomy: No Cardiac Surgery: No Cholecystectomy: No Lung Surgery: No Neurologic Surgery: No Orthopedic Surgery: Yes (ARTHROSCOPY BILATERAL KNEE; CARPAL TUNNEL LEFT;) - Immunization History Immunization Up to Date: Yes - Suicide/Smoking/Psychosocial Hx Smoking History: Never smoked Have you smoked in the past 12 months: No Hx Alcohol Use: No Drug/Substance Use Hx: No Substance Use Type: None Hx Substance Use Treatment: No <Nemo Jackman - Last Filed: 10/15/17 10:51> - Past Medical History Allergies/Adverse Reactions: Allergies Allergy/AdvReac Type Severity Reaction Status Date / Time Penicillins Allergy Severe Swelling Verified 10/14/17 10:52 milk AdvReac Verified 10/14/17 10:52 Home Medications: Ambulatory Orders Alendronate Na [Fosamax (Weekly)] 70 mg PO Q7D 10/10/17 Atorvastatin Ca [Lipitor] 20 mg NR DAILY 10/10/17 Famotidine 10 mg PO DAILY 10/10/17 Levothyroxine [Synthroid -] 25 mcg PO DAILY 10/10/17 Metoprolol Tartrate 25 mg PO DAILY 10/10/17 Mometasone Furoate 50 mcg PO BID 10/10/17 Montelukast Na [Singulair -] 10 mg PO DAILY 10/10/17 Omeprazole 10 mg PO DAILY 10/10/17 Cyclobenzaprine HCl 5 mg PO DAILY #30 tablet 10/13/17 Lactobacillus Acidophilus [Bacid -] 1 tab PO DAILY #7 tab 10/13/17 Review of Systems - Review of Systems Comments:: 10/14/17 11:52 GENERAL/CONSTITUTIONAL: No fever or chills. HEAD, EYES, EARS, NOSE AND THROAT: No change in vision. No ear pain or discharge. No sore throat. CARDIOVASCULAR: No chest pain or shortness of breath. RESPIRATORY: No cough, wheezing, or hemoptysis. GASTROINTESTINAL: No nausea, vomiting, diarrhea or constipation. GENITOURINARY: No dysuria, frequency, or change in urination. MUSCULOSKELETAL: (+) neck pain, back pain, hip pain, bilateral knee and ankle pain SKIN: No rash NEUROLOGIC: No headache, vertigo, loss of consciousness, or change in strength/ sensation. ENDOCRINE: No increased thirst. No abnormal weight change. HEMATOLOGIC/LYMPHATIC: No anemia, easy bleeding, or history of blood clots. ALLERGIC/IMMUNOLOGIC: No hives or skin allergy. <Jennifer Sheehan A - Last Filed: 10/14/17 16:22> *Physical Exam - Vital Signs Last Vital Signs Temp Pulse Resp BP Pulse Ox 98.3 F 90 18 145/90 97 10/14/17 10:53 10/14/17 10:53 10/14/17 10:53 10/14/17 10:53 10/14/17 10:53 <Jennifer Sheehan A - Last Filed: 10/14/17 16:22> - Vital Signs Last Vital Signs Temp Pulse Resp BP Pulse Ox 98.3 F 90 18 145/90 97 10/14/17 10:53 10/14/17 10:53 10/14/17 10:53 10/14/17 10:53 10/14/17 10:53 - Physical Exam Comments: GENERAL: Awake, alert, and fully oriented, in no acute distress HEAD: No signs of trauma EYES: PERRLA, EOMI, sclera anicteric, conjunctiva clear ENT: Auricles normal inspection, hearing grossly normal, nares patent, oropharynx clear without exudates. Moist mucosa NECK: Normal ROM, supple, no lymphadenopathy, JVD, or masses LUNGS: Breath sounds equal, clear to auscultation bilaterally. No wheezes, and no crackles HEART: Regular rate and rhythm, normal S1 and S2, no murmurs, rubs or gallops ABDOMEN: Soft, nontender, normoactive bowel sounds. No guarding, no rebound. No masses EXTREMITIES: Normal range of motion, no edema. No clubbing or cyanosis. No cords, erythema, or tenderness NEUROLOGICAL: Cranial nerves II through XII grossly intact. Normal speech, normal gait SKIN: Warm, Dry, normal turgor, no rashes or lesions noted. <Nemo Jackman - Last Filed: 10/15/17 10:51> ED Treatment Course - LABORATORY CBC & Chemistry Diagram: 10/14/17 12:01 10/14/17 12:01 - Consult/PCP Time Called: 15:54 (paged Dr. Turpin) - Additional Consults Time Called: 16:22 (paged Dr. Turpin a second time) <Jennifer Sheehan - Last Filed: 10/14/17 16:22> - LABORATORY CBC & Chemistry Diagram: 10/15/17 09:00 10/14/17 12:01 <Nemo Jackman - Last Filed: 10/15/17 10:51> Medical Decision Making - Medical Decision Making Pt presents after visiting nurse came to see her and found that there were feces all over her house. Unsafe for her to live there. Additionally, she has knee pain and back pain that is limiting her movement and ability to function with ADLs. D/w Dr. Turpin, will admit. <Nemo Jackman - Last Filed: 10/15/17 10:51> *DC/Admit/Observation/Transfer - Attestations Scribe Attestion: 10/14/17 11:52 Documentation prepared by Jennifer Sheehan, acting as medical collections for Nemo Jackman MD. <Jennifer Sheehan - Last Filed: 10/14/17 16:22> - Discharge Dispostion Admit: Yes <Nemo Jackman - Last Filed: 10/15/17 10:51> Diagnosis at time of Disposition: Intractable pain Fall Qualifiers: Encounter type: initial encounter Qualified Code(s): W19.XXXA - Unspecified fall, initial encounter Bilateral knee pain Qualifiers: Chronicity: acute Qualified Code(s): M25.561 - Pain in right knee Back pain Qualifiers: Back pain location: low back pain Chronicity: acute Back pain laterality: midline Sciatica presence: without sciatica Qualified Code(s): M54.5 - Low back pain - Discharge Dispostion Condition at time of disposition: Stable
[2017-10-14 12:26] LABS: BASO % 0.7 % (0-2.0); EOS % 0.7 % (0-4.5); HEMATOCRIT 42.9 % (32.4-45.2); HEMOGLOBIN 14.3 GM/dL (10.7-15.3); LYMPH % 27.5 % (8-40); MCH 30.7 pg (25.7-33.7); MCHC 33.3 g/dl (32.0-36.0); MEAN CELL VOLUME 92.1 fl (80-96); MEAN PLT VOLUME 8.2 fl (7.5-11.1); MONO % 4.9 % (3.8-10.2); NEUT % 66.2 % (42.8-82.8); PLATELET COUNT 230 K/MM3 (134-434); RBC 4.65 M/mm3 (3.60-5.2); WHITE BLOOD COUNT 8.6 K/mm3 (4.0-10.0)
[2017-10-14 12:31] LABS: URINE APPEARANCE SLCLOUDY; URINE BILIRUBIN NEGATIVE (NEGATIVE); URINE BLOOD NEGATIVE (NEGATIVE); URINE COLOR LTYELLOW; URINE GLUCOSE (UA) NEGATIVE (NEGATIVE); URINE KETONE NEGATIVE (NEGATIVE); URINE LEUK ESTERASE TRACE (NEGATIVE); URINE NITRITE NEGATIVE (NEGATIVE); URINE PROTEIN NEGATIVE (NEGATIVE); URINE UROBILINOGEN NEGATIVE mg/dL (0.2-1.0)
[2017-10-14 12:50] LABS: ALBUMIN 3.6 g/dl (3.4-5.0); ALK PHOS 101 U/L (45-117); ANION GAP 9 (8-16); BILIRUBIN,TOTAL 0.7 mg/dL (0.2-1.0); BLOOD UREA NITROGEN 15 mg/dL (7-18); CALCIUM 9.8 mg/dL (8.5-10.1); CHLORIDE 102 mmol/L (98-107); CO2 28 mmol/L (21-32); CREATININE 0.6 mg/dL (0.55-1.02); GLUCOSE,RANDOM 95 mg/dL (74-106); POTASSIUM 3.9 mmol/L (3.5-5.1); SGOT/AST 8 U/L (15-37); SGPT/ALT 18 U/L (12-78); SODIUM 139 mmol/L (136-145); TOT PROT 7.3 g/dl (6.4-8.2)
[2017-10-14 13:12] LABS: EPI CELLS FEW /HPF (FEW)
[2017-10-14] MEDS ORDERED: traMADol HCL 50 MG TABLET PO ONE (16:21)
[2017-10-14] MEDS ORDERED: traMADol HCL 50 MG TABLET ONE (16:26)
[2017-10-14] MEDS ORDERED: PATIENT'S OWN MEDICATION (NON-FORMULARY) (Alendronate Na [Fosamax (Weekly)] 70 MG) PO SCH (17:00)
[2017-10-14] MEDS: traMADol HCL 50 MG TABLET PO PRN (21:27)
[2017-10-14] MEDS: FLUTICASONE PROP 0.05% 16 GM NASAL SPRAY NS SCH (21:29)
[2017-10-14] MEDS: ATORVASTATIN CA 20 MG TABLET (FP) PO SCH (21:30)
[2017-10-14] MEDS: MONTELUKAST NA 10 MG TABLET PO SCH (21:30)
[2017-10-14] MEDS: HEPARIN NA (PORCINE) 5,000 UNITS/ML 1ML VIAL SQ SCH (21:30)
[2017-10-15] MEDS: LEVOTHYROXINE NA 25 MCG TABLET (FP) PO SCH (06:36)
[2017-10-15] MEDS: RANITIDINE HCL 150 MG TABLET (FP) PO SCH (09:45)
[2017-10-15] MEDS: CYCLOBENZAPRINE HCL 10 MG TABLET (FP) PO SCH (09:45)
[2017-10-15] MEDS: METOPROLOL TARTRATE 25 MG TABLET (FP) PO SCH (09:45)
[2017-10-15] MEDS: FLUTICASONE PROP 0.05% 16 GM NASAL SPRAY NS SCH ×2 (09:45→21:34)
[2017-10-15] MEDS: HEPARIN NA (PORCINE) 5,000 UNITS/ML 1ML VIAL SQ SCH ×2 (09:45→21:32)
[2017-10-15] MEDS: LACTOBACILLUS ACIDOPHILUS 1 EACH TAB (FP) PO SCH (09:45)
[2017-10-15] MEDS: traMADol HCL 50 MG TABLET PO PRN ×2 (09:48→21:32)
[2017-10-15 09:52] LABS: BASO % 0.7 % (0-2.0); EOS % 3.1 % (0-4.5); HEMATOCRIT 38.5 % (32.4-45.2); HEMOGLOBIN 12.8 GM/dL (10.7-15.3); LYMPH % 47.1 % (8-40); MCH 30.4 pg (25.7-33.7); MCHC 33.2 g/dl (32.0-36.0); MEAN CELL VOLUME 91.7 fl (80-96); MONO % 6.1 % (3.8-10.2); PLATELET COUNT 198 K/MM3 (134-434); RDW 13.9 % (11.6-15.6); WHITE BLOOD COUNT 6.5 K/mm3 (4.0-10.0)
[2017-10-15] MEDS ORDERED: CYCLOBENZAPRINE HCL 5 MG TABLET PO SCH (10:00)
[2017-10-15 10:13] LABS: ANION GAP 7 (8-16); BLOOD UREA NITROGEN 14 mg/dL (7-18); CALCIUM 8.8 mg/dL (8.5-10.1); CHLORIDE 102 mmol/L (98-107); CO2 30 mmol/L (21-32); CREATININE 0.7 mg/dL (0.55-1.02); GLUCOSE,RANDOM 107 mg/dL (74-106); POTASSIUM 4.1 mmol/L (3.5-5.1); SODIUM 139 mmol/L (136-145)
--- NOTE | 2017-10-15 11:48 | HP ---
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 Cardiovascular: Yes: HTN, Hyperlipdemia Gastrointestinal: Yes: Diverticulosis Musculoskeletal: Yes: Osteoarthritis Endocrine: Yes: Hypothyroidism - Smoking History Smoking history: Never smoked Have you smoked in the past 12 months: No - Alcohol/Substance Use Hx Alcohol Use: No History of Substance Use: reports: None - Social History History of Recent Travel: No Home Medications - Allergies Allergies/Adverse Reactions: Allergies Allergy/AdvReac Type Severity Reaction Status Date / Time Penicillins Allergy Severe Swelling Verified 10/14/17 10:52 milk AdvReac Verified 10/14/17 10:52 - Home Medications Home Medications: Ambulatory Orders Alendronate Na [Fosamax (Weekly)] 70 mg PO Q7D 10/10/17 Atorvastatin Ca [Lipitor] 20 mg NR DAILY 10/10/17 Famotidine 10 mg PO DAILY 10/10/17 Levothyroxine [Synthroid -] 25 mcg PO DAILY 10/10/17 Metoprolol Tartrate 25 mg PO DAILY 10/10/17 Mometasone Furoate 50 mcg PO BID 10/10/17 Montelukast Na [Singulair -] 10 mg PO DAILY 10/10/17 Omeprazole 10 mg PO DAILY 10/10/17 Cyclobenzaprine HCl 5 mg PO DAILY #30 tablet 10/13/17 Lactobacillus Acidophilus [Bacid -] 1 tab PO DAILY #7 tab 10/13/17 Family Disease History - Family Disease History Family History: Unremarkable Review of Systems Findings/Remarks: - Review of Systems Constitutional: reports: No Symptoms Eyes: reports: No Symptoms HENT: reports: No Symptoms Neck: reports: Pain on Movement Cardiovascular: reports: No Symptoms Respiratory: reports: No Symptoms Gastrointestinal: reports: Abdominal Pain Genitourinary: reports: No Symptoms Breasts: reports: No Symptoms Reported Musculoskeletal: reports: Joint Pain (b/l knees) Integumentary: reports: Bruising (R- knee) Neurological: reports: Headache Endocrine: reports: No Symptoms Hematology/Lymphatic: reports: No Symptoms Psychiatric: reports: No Symptoms Pain Intensity: 6 Physical Examination Vital Signs: Vital Signs Temperature 97.8 F 10/15/17 06:00 Pulse Rate 77 10/15/17 06:00 Respiratory Rate 18 10/15/17 06:00 Blood Pressure 130/70 10/15/17 06:00 O2 Sat by Pulse Oximetry (%) 96 10/15/17 03:03 Constitutional: Yes: Well Nourished, Obese Eyes: Yes: WNL, Conjunctiva Clear, PERRL HENT: Yes: Atraumatic, Normocephalic, Other (tenderness to mid occiput) Neck: Yes: WNL Cardiovascular: Yes: WNL, Regular Rate and Rhythm, S1, S2 Respiratory: Yes: WNL, Regular, CTA Bilaterally Gastrointestinal: Yes: Abdomen, Obese, Other (suprapubic) Breast(s): Yes: WNL Musculoskeletal: Yes: Other (B/L knee pain) Extremities: Yes: Other (superficial bruise to right knee) Edema: Yes Edema: LLE: 2+, RLE: 2+ Peripheral Pulses WNL: Yes Integumentary: Yes: Bruising (right knee) Neurological: Yes: WNL, Alert, Oriented, Cran Nerves II-XII Intact Psychiatric: Yes: WNL, Alert, Oriented Labs: CBC, BMP 10/15/17 09:00 10/15/17 09:00 Imaging - Results Cat Scan: Report Reviewed (Lunbar spine; No active disese DJD) Problem List - Problems (1) Back pain Assessment/Plan: Normal Ct back cont all home medications Code(s): M54.9 - DORSALGIA, UNSPECIFIED Qualifiers: Back pain location: low back pain Chronicity: acute Back pain laterality : midline Sciatica presence: without sciatica Qualified Code(s): M54.5 - Low back pain (2) HTN (hypertension) Assessment/Plan: well controlled cont all home medications Code(s): I10 - ESSENTIAL (PRIMARY) HYPERTENSION (3) HLD (hyperlipidemia) Assessment/Plan: Cont statin Code(s): E78.5 - HYPERLIPIDEMIA, UNSPECIFIED (4) History of TIA (transient ischemic attack) Assessment/Plan: Generalized weakness no focal weakness cont all home meds Code(s): Z86.73 - PRSNL HX OF TIA (TIA), AND CEREB INFRC W/O RESID DEFICITS (5) Fall Assessment/Plan: H/o fall few days ago needs PT evaluation. Patient needs evaluation by PT and SW for safe discharge. Code(s): W19.XXXA - UNSPECIFIED FALL, INITIAL ENCOUNTER Qualifiers: Encounter type: subsequent encounter Qualified Code(s): W19.XXXD - Unspecified fall, subsequent encounter (6) Gait instability Assessment/Plan: PT evaluation. Code(s): R26.81 - UNSTEADINESS ON FEET
[2017-10-15] MEDS: ATORVASTATIN CA 20 MG TABLET (FP) PO SCH (21:32)
[2017-10-15] MEDS: MONTELUKAST NA 10 MG TABLET PO SCH (21:32)
[2017-10-16] MEDS: traMADol HCL 50 MG TABLET PO PRN ×2 (06:44→21:17)
[2017-10-16] MEDS: LEVOTHYROXINE NA 25 MCG TABLET (FP) PO SCH (06:44)
[2017-10-16 07:37] LABS: BASO % 0.8 % (0-2.0); EOS % 3.5 % (0-4.5); HEMATOCRIT 38.2 % (32.4-45.2); HEMOGLOBIN 12.6 GM/dL (10.7-15.3); LYMPH % 48.8 % (8-40); MCH 30.5 pg (25.7-33.7); MEAN CELL VOLUME 92.4 fl (80-96); MONO % 6.6 % (3.8-10.2); NEUT % 40.3 % (42.8-82.8); PLATELET COUNT 196 K/MM3 (134-434); RBC 4.14 M/mm3 (3.60-5.2); RDW 14.1 % (11.6-15.6); WHITE BLOOD COUNT 6.6 K/mm3 (4.0-10.0)
[2017-10-16 08:08] LABS: ANION GAP 8 (8-16); BLOOD UREA NITROGEN 13 mg/dL (7-18); CALCIUM 8.9 mg/dL (8.5-10.1); CHLORIDE 102 mmol/L (98-107); CO2 29 mmol/L (21-32); GLUCOSE,RANDOM 95 mg/dL (74-106); POTASSIUM 4.2 mmol/L (3.5-5.1); SODIUM 139 mmol/L (136-145)
[2017-10-16 08:09] LABS: CREATININE 0.6 mg/dL (0.55-1.02)
[2017-10-16] MEDS: FLUTICASONE PROP 0.05% 16 GM NASAL SPRAY NS SCH ×2 (10:05→21:18)
[2017-10-16] MEDS ORDERED: PT OWN MED DRAWER 7, Y5N ONE ×2 (11:01→21:00)
[2017-10-16] MEDS: CYCLOBENZAPRINE HCL 10 MG TABLET (FP) PO SCH (11:07)
[2017-10-16] MEDS: METOPROLOL TARTRATE 25 MG TABLET (FP) PO SCH (11:07)
[2017-10-16] MEDS: LACTOBACILLUS ACIDOPHILUS 1 EACH TAB (FP) PO SCH (11:07)
[2017-10-16] MEDS: HEPARIN NA (PORCINE) 5,000 UNITS/ML 1ML VIAL SQ SCH ×2 (11:07→21:20)
[2017-10-16] MEDS: RANITIDINE HCL 150 MG TABLET (FP) PO SCH (11:07)
--- NOTE | 2017-10-16 12:04 | PN ---
Progress Note, Physician Chief Complaint: Ms Child complain of knee pain. Denies chest pain, shortness of breath, nausea/ vomiting. - Current Medication List Current Medications: Active Medications Albuterol Sulfate (Ventolin Hfa Inhaler -) 2 puff IH Q6H PRN PRN Reason: SHORTNESS OF BREATH Atorvastatin Calcium (Lipitor -) 20 mg PO HS [facility] Last Admin: 10/15/17 21:32 Dose: 20 mg Cyclobenzaprine HCl (Flexeril -) 5 mg PO DAILY [facility] Last Admin: 10/16/17 11:07 Dose: 5 mg Fluticasone Propionate (Flonase -) 1 spray NS BID [facility] Last Admin: 10/15/17 21:34 Dose: 1 spray Heparin Sodium (Porcine) (Heparin -) 5,000 unit SQ BID [facility] Last Admin: 10/16/17 11:07 Dose: 5,000 unit Lactobacillus Acidophilus (Bacid -) 1 tab PO DAILY [facility] Last Admin: 10/16/17 11:07 Dose: 1 tab Levothyroxine Sodium (Synthroid -) 25 mcg PO DAILY@0700 [facility] Last Admin: 10/16/17 06:44 Dose: 25 mcg Metoprolol Tartrate (Lopressor -) 25 mg PO DAILY [facility] Last Admin: 10/16/17 11:07 Dose: 25 mg Montelukast Sodium (Singulair -) 10 mg PO HS [facility] Last Admin: 10/15/17 21:32 Dose: 10 mg Ranitidine HCl (Zantac -) 150 mg PO DAILY [facility] Last Admin: 10/16/17 11:07 Dose: 150 mg Tramadol HCl (Ultram -) 50 mg PO Q8H PRN PRN Reason: PAIN Last Admin: 10/16/17 06:44 Dose: 50 mg - Objective Vital Signs: Vital Signs Temperature 37.0 C 10/16/17 06:00 Pulse Rate 63 10/16/17 06:00 Respiratory Rate 20 10/16/17 06:00 Blood Pressure 146/63 10/16/17 06:00 O2 Sat by Pulse Oximetry (%) 96 10/15/17 21:00 Constitutional: Yes: Well Nourished, No Distress, Calm Cardiovascular: Yes: Regular Rate and Rhythm. No: Gallop, Murmur, Rub Respiratory: Yes: Regular, CTA Bilaterally. No: Rales, Rhonchi, Wheezes Gastrointestinal: Yes: Normal Bowel Sounds, Soft. No: Distention, Tenderness Extremities: Yes: WNL Edema: No Labs: CBC, BMP 10/16/17 07:22 10/16/17 07:22 Problem List - Problems (1) Back pain Assessment/Plan: -patient with chronic back pain -continue pain management -will need SNF placement -unsafe discharge, APS consulted Code(s): M54.9 - DORSALGIA, UNSPECIFIED Qualifiers: Back pain location: low back pain Chronicity: chronic Back pain laterality: midline Sciatica presence: without sciatica Qualified Code(s): M54.5 - Low back pain; G89.29 - Other chronic pain; G89.29 - Other chronic pain (2) Bilateral knee pain Assessment/Plan: -pain control -PT Code(s): M25.561 - PAIN IN RIGHT KNEE; M25.562 - PAIN IN LEFT KNEE Qualifiers: Chronicity: acute Qualified Code(s): M25.561 - Pain in right knee; M25.562 - Pain in left knee; M25.562 - Pain in left knee (3) HLD (hyperlipidemia) Assessment/Plan: -continue statin Code(s): E78.5 - HYPERLIPIDEMIA, UNSPECIFIED (4) HTN (hypertension) Assessment/Plan: -continue metoprolol Code(s): I10 - ESSENTIAL (PRIMARY) HYPERTENSION (5) Hypothyroid Assessment/Plan: -continue synthroid Code(s): E03.9 - HYPOTHYROIDISM, UNSPECIFIED
[2017-10-16] MEDS: ATORVASTATIN CA 20 MG TABLET (FP) PO SCH (21:17)
[2017-10-16] MEDS: MONTELUKAST NA 10 MG TABLET PO SCH (21:17)
[2017-10-17] MEDS: ACETAMINOPHEN 325 MG TABLET (FP) PO PRN (00:41)
--- NOTE | 2017-10-17 01:40 | EKG ---
Test Reason : Blood Pressure : / mmHG Vent. Rate : 070 BPM Atrial Rate : 070 BPM P-R Int : 180 ms QRS Dur : 084 ms QT Int : 394 ms P-R-T Axes : 030 011 048 degrees QTc Int : 425 ms NORMAL SINUS RHYTHM LOW VOLTAGE QRS INFERIOR INFARCT , AGE UNDETERMINED ABNORMAL ECG WHEN COMPARED WITH ECG OF 11-OCT-2017 18:15, VENT. RATE HAS DECREASED BY 38 BPM Confirmed by JESE POST MD ([id number]) on 10/17/2017 1:40:41 AM Referred By: Confirmed By:JESE POST MD
[2017-10-17] MEDS: LEVOTHYROXINE NA 25 MCG TABLET (FP) PO SCH (06:23)
[2017-10-17] MEDS: LACTOBACILLUS ACIDOPHILUS 1 EACH TAB (FP) PO SCH (10:36)
[2017-10-17] MEDS: RANITIDINE HCL 150 MG TABLET (FP) PO SCH (10:36)
[2017-10-17] MEDS: CYCLOBENZAPRINE HCL 10 MG TABLET (FP) PO SCH (10:36)
[2017-10-17] MEDS: METOPROLOL TARTRATE 25 MG TABLET (FP) PO SCH (10:36)
[2017-10-17] MEDS: HEPARIN NA (PORCINE) 5,000 UNITS/ML 1ML VIAL SQ SCH ×2 (10:36→21:33)
[2017-10-17] MEDS: traMADol HCL 50 MG TABLET PO PRN ×2 (10:37→21:39)
[2017-10-17] MEDS ORDERED: PT OWN MED DRAWER 7, Y5N ONE ×3 (10:41→21:30)
--- NOTE | 2017-10-17 15:28 | PN ---
Progress Note, Physician Chief Complaint: Ms Child has no new complaints. Still knee pain but walking improved. No cp, sob, n/v. - Current Medication List Current Medications: Active Medications Acetaminophen (Tylenol -) 650 mg PO Q6H PRN PRN Reason: FEVER OR PAIN Last Admin: 10/17/17 00:41 Dose: 650 mg Albuterol Sulfate (Ventolin Hfa Inhaler -) 2 puff IH Q6H PRN PRN Reason: SHORTNESS OF BREATH Atorvastatin Calcium (Lipitor -) 20 mg PO HS [facility] Last Admin: 10/16/17 21:17 Dose: 20 mg Cyclobenzaprine HCl (Flexeril -) 5 mg PO DAILY [facility] Last Admin: 10/17/17 10:36 Dose: 5 mg Fluticasone Propionate (Flonase -) 1 spray NS BID [facility] Last Admin: 10/16/17 21:18 Dose: 1 spray Heparin Sodium (Porcine) (Heparin -) 5,000 unit SQ BID [facility] Last Admin: 10/17/17 10:36 Dose: 5,000 unit Lactobacillus Acidophilus (Bacid -) 1 tab PO DAILY [facility] Last Admin: 10/17/17 10:36 Dose: 1 tab Levothyroxine Sodium (Synthroid -) 25 mcg PO DAILY@0700 [facility] Last Admin: 10/17/17 06:23 Dose: 25 mcg Metoprolol Tartrate (Lopressor -) 25 mg PO DAILY [facility] Last Admin: 10/17/17 10:36 Dose: 25 mg Montelukast Sodium (Singulair -) 10 mg PO HS [facility] Last Admin: 10/16/17 21:17 Dose: 10 mg Ranitidine HCl (Zantac -) 150 mg PO DAILY [facility] Last Admin: 10/17/17 10:36 Dose: 150 mg Tramadol HCl (Ultram -) 50 mg PO Q8H PRN PRN Reason: PAIN Last Admin: 10/17/17 10:37 Dose: 50 mg - Objective Vital Signs: Vital Signs Temperature 37.0 C 10/16/17 22:00 Pulse Rate 84 10/16/17 22:00 Respiratory Rate 18 10/16/17 22:00 Blood Pressure 126/76 10/16/17 22:00 O2 Sat by Pulse Oximetry (%) 94 L 10/16/17 21:00 Constitutional: Yes: No Distress, Calm, Obese Cardiovascular: Yes: Regular Rate and Rhythm. No: Gallop, Murmur, Rub Respiratory: Yes: Regular, CTA Bilaterally. No: Rales, Rhonchi, Wheezes Gastrointestinal: Yes: Normal Bowel Sounds, Soft. No: Distention, Tenderness Extremities: Yes: WNL Edema: No Labs: CBC, BMP 10/16/17 07:22 10/16/17 07:22 Problem List - Problems (1) Back pain Code(s): M54.9 - DORSALGIA, UNSPECIFIED Qualifiers: Back pain location: low back pain Chronicity: chronic Back pain laterality: midline Sciatica presence: without sciatica Qualified Code(s): M54.5 - Low back pain; G89.29 - Other chronic pain; G89.29 - Other chronic pain (2) Bilateral knee pain Code(s): M25.561 - PAIN IN RIGHT KNEE; M25.562 - PAIN IN LEFT KNEE Qualifiers: Chronicity: acute Qualified Code(s): M25.561 - Pain in right knee; M25.562 - Pain in left knee; M25.562 - Pain in left knee (3) HLD (hyperlipidemia) Code(s): E78.5 - HYPERLIPIDEMIA, UNSPECIFIED (4) HTN (hypertension) Code(s): I10 - ESSENTIAL (PRIMARY) HYPERTENSION (5) Hypothyroid Code(s): E03.9 - HYPOTHYROIDISM, UNSPECIFIED Assessment/Plan (1) Back pain Assessment/Plan: -continue PT -continue tramadol -walking improved today Code(s): M54.9 - DORSALGIA, UNSPECIFIED Qualifiers: Back pain location: low back pain Chronicity: chronic Back pain laterality: midline Sciatica presence: without sciatica Qualified Code(s): M54.5 - Low back pain; G89.29 - Other chronic pain; G89.29 - Other chronic pain (2) Bilateral knee pain Assessment/Plan: -pain control -PT Code(s): M25.561 - PAIN IN RIGHT KNEE; M25.562 - PAIN IN LEFT KNEE Qualifiers: Chronicity: acute Qualified Code(s): M25.561 - Pain in right knee; M25.562 - Pain in left knee; M25.562 - Pain in left knee (3) HLD (hyperlipidemia) Assessment/Plan: -continue statin Code(s): E78.5 - HYPERLIPIDEMIA, UNSPECIFIED (4) HTN (hypertension) Assessment/Plan: -continue metoprolol Code(s): I10 - ESSENTIAL (PRIMARY) HYPERTENSION (5) Hypothyroid Assessment/Plan: -continue synthroid Code(s): E03.9 - HYPOTHYROIDISM, UNSPECIFIED (6) Environment -patient says her apartment is filthy with rodents and moldy refrigerator -APS involved, will need psych consult to evaluate capacity -patient made aware of this need, however she became very belligerent with me about being seen by psychiatry -made patient aware that this was protocol and needed concerning APS as opposed to concern of her mental state/health -however even with this reassurance she said she will not cooperate with psychiatry -also made patient aware that she had no further medicare days for SNF, however we are working on possible Medicaid -per CM, patient would need to release financial information to assess if would qualify -reassured patient that we would not need it but the state would -she said that she will not release this information as she does not want someone to "take every cricket" -patient increasingly became upset at me during this discussion and repeatedly said she was not going to cooperate with us -we will continue to work with patient and her concerns, particularly her home environment -she was made aware that if she is found to have capacity by psychiatry and refuses to cooperate, then we will have to discharge her back to her situation -patient understood conversation
[2017-10-17] MEDS: FLUTICASONE PROP 0.05% 16 GM NASAL SPRAY NS SCH ×2 (15:51→21:33)
[2017-10-17] MEDS: MONTELUKAST NA 10 MG TABLET PO SCH (21:33)
[2017-10-17] MEDS: ATORVASTATIN CA 20 MG TABLET (FP) PO SCH (21:33)
[2017-10-18] MEDS: LEVOTHYROXINE NA 25 MCG TABLET (FP) PO SCH (06:24)
[2017-10-18 07:32] LABS: BASO % 0.8 % (0-2.0); EOS % 3.7 % (0-4.5); HEMATOCRIT 37.3 % (32.4-45.2); HEMOGLOBIN 12.2 GM/dL (10.7-15.3); LYMPH % 44.6 % (8-40); MCH 30.4 pg (25.7-33.7); MCHC 32.8 g/dl (32.0-36.0); MEAN CELL VOLUME 92.6 fl (80-96); MEAN PLT VOLUME 8.1 fl (7.5-11.1); MONO % 6.9 % (3.8-10.2); PLATELET COUNT 186 K/MM3 (134-434); RBC 4.03 M/mm3 (3.60-5.2); WHITE BLOOD COUNT 6.9 K/mm3 (4.0-10.0)
[2017-10-18 08:04] LABS: ANION GAP 9 (8-16); BLOOD UREA NITROGEN 10 mg/dL (7-18); CALCIUM 8.6 mg/dL (8.5-10.1); CHLORIDE 104 mmol/L (98-107); CO2 27 mmol/L (21-32); CREATININE 0.5 mg/dL (0.55-1.02); GLUCOSE,RANDOM 97 mg/dL (74-106); MAGNESIUM 1.9 mg/dL (1.8-2.4); PHOSPHOROUS 3.6 mg/dL (2.5-4.9); SODIUM 140 mmol/L (136-145)
[2017-10-18] MEDS ORDERED: PT OWN MED DRAWER 7, Y5N ONE ×2 (10:47→21:05)
[2017-10-18] MEDS: METOPROLOL TARTRATE 25 MG TABLET (FP) PO SCH (10:48)
[2017-10-18] MEDS: RANITIDINE HCL 150 MG TABLET (FP) PO SCH (10:48)
[2017-10-18] MEDS: LACTOBACILLUS ACIDOPHILUS 1 EACH TAB (FP) PO SCH (10:48)
[2017-10-18] MEDS: FLUTICASONE PROP 0.05% 16 GM NASAL SPRAY NS SCH ×2 (10:49→21:11)
[2017-10-18] MEDS: HEPARIN NA (PORCINE) 5,000 UNITS/ML 1ML VIAL SQ SCH ×2 (10:49→21:11)
[2017-10-18] MEDS: CYCLOBENZAPRINE HCL 10 MG TABLET (FP) PO SCH (10:49)
[2017-10-18] MEDS: traMADol HCL 50 MG TABLET PO PRN ×2 (10:54→21:10)
--- NOTE | 2017-10-18 11:00 | PN ---
Progress Note, Physician Chief Complaint: Ms Child complains of back, knee, and shoulder pain. No cp, sob, n/v. - Current Medication List Current Medications: Active Medications Acetaminophen (Tylenol -) 650 mg PO Q6H PRN PRN Reason: FEVER OR PAIN Last Admin: 10/17/17 00:41 Dose: 650 mg Albuterol Sulfate (Ventolin Hfa Inhaler -) 2 puff IH Q6H PRN PRN Reason: SHORTNESS OF BREATH Atorvastatin Calcium (Lipitor -) 20 mg PO HS [facility] Last Admin: 10/17/17 21:33 Dose: 20 mg Cyclobenzaprine HCl (Flexeril -) 5 mg PO DAILY [facility] Last Admin: 10/18/17 10:49 Dose: 5 mg Fluticasone Propionate (Flonase -) 1 spray NS BID [facility] Last Admin: 10/18/17 10:49 Dose: 1 spray Heparin Sodium (Porcine) (Heparin -) 5,000 unit SQ BID [facility] Last Admin: 10/18/17 10:49 Dose: Not Given Lactobacillus Acidophilus (Bacid -) 1 tab PO DAILY [facility] Last Admin: 10/18/17 10:48 Dose: 1 tab Levothyroxine Sodium (Synthroid -) 25 mcg PO DAILY@0700 [facility] Last Admin: 10/18/17 06:24 Dose: 25 mcg Metoprolol Tartrate (Lopressor -) 25 mg PO DAILY [facility] Last Admin: 10/18/17 10:48 Dose: 25 mg Montelukast Sodium (Singulair -) 10 mg PO [facility] Last Admin: 10/17/17 21:33 Dose: 10 mg Ranitidine HCl (Zantac -) 150 mg PO DAILY [facility] Last Admin: 10/18/17 10:48 Dose: 150 mg Tramadol HCl (Ultram -) 50 mg PO Q8H PRN PRN Reason: PAIN Last Admin: 10/18/17 10:54 Dose: 50 mg - Objective Vital Signs: Vital Signs Temperature 36.6 C 10/18/17 06:00 Pulse Rate 70 10/18/17 06:00 Respiratory Rate 18 10/18/17 06:00 Blood Pressure 140/72 10/18/17 06:00 O2 Sat by Pulse Oximetry (%) 94 L 10/16/17 21:00 Constitutional: Yes: Well Nourished, No Distress, Calm Cardiovascular: Yes: Regular Rate and Rhythm. No: Gallop, Murmur, Rub Respiratory: Yes: Regular, CTA Bilaterally. No: Rales, Rhonchi, Wheezes Gastrointestinal: Yes: Normal Bowel Sounds, Soft. No: Distention, Tenderness Extremities: Yes: WNL Edema: No Labs: CBC, BMP 10/18/17 07:15 10/18/17 07:15 Problem List - Problems (1) Back pain Code(s): M54.9 - DORSALGIA, UNSPECIFIED Qualifiers: Back pain location: low back pain Chronicity: chronic Back pain laterality: midline Sciatica presence: without sciatica Qualified Code(s): M54.5 - Low back pain; G89.29 - Other chronic pain; G89.29 - Other chronic pain (2) Bilateral knee pain Code(s): M25.561 - PAIN IN RIGHT KNEE; M25.562 - PAIN IN LEFT KNEE Qualifiers: Chronicity: acute Qualified Code(s): M25.561 - Pain in right knee; M25.562 - Pain in left knee; M25.562 - Pain in left knee (3) HLD (hyperlipidemia) Code(s): E78.5 - HYPERLIPIDEMIA, UNSPECIFIED (4) HTN (hypertension) Code(s): I10 - ESSENTIAL (PRIMARY) HYPERTENSION (5) Hypothyroid Code(s): E03.9 - HYPOTHYROIDISM, UNSPECIFIED Assessment/Plan (1) Back pain Assessment/Plan: -continue PT -continue tramadol Code(s): M54.9 - DORSALGIA, UNSPECIFIED Qualifiers: Back pain location: low back pain Chronicity: chronic Back pain laterality: midline Sciatica presence: without sciatica Qualified Code(s): M54.5 - Low back pain; G89.29 - Other chronic pain; G89.29 - Other chronic pain (2) Bilateral knee pain Assessment/Plan: -pain control -PT and physiatry -possible outpatient ortho evaluation Code(s): M25.561 - PAIN IN RIGHT KNEE; M25.562 - PAIN IN LEFT KNEE Qualifiers: Chronicity: acute Qualified Code(s): M25.561 - Pain in right knee; M25.562 - Pain in left knee; M25.562 - Pain in left knee (3) HLD (hyperlipidemia) Assessment/Plan: -continue statin Code(s): E78.5 - HYPERLIPIDEMIA, UNSPECIFIED (4) HTN (hypertension) Assessment/Plan: -continue metoprolol Code(s): I10 - ESSENTIAL (PRIMARY) HYPERTENSION (5) Hypothyroid Assessment/Plan: -continue synthroid Code(s): E03.9 - HYPOTHYROIDISM, UNSPECIFIED (6) Environment -awaiting psych evaluation for capacity
--- NOTE | 2017-10-18 16:48 | PN ---
Mental Health Exam - Mental Status Exam Alert and Oriented to: Time, Place, Person Cognitive Function: Grossly Intact Patient Appearance: Disheveled Mood: Hostile ("i dont want you here". ), Irritable Affect: Mood Congruent Patient Behavior: Guarded, Suspicious ('who sent you here?" ), Belligerent ("i dont need your help, get out!') Speech Pattern: Perseverating Voice Loudness: Moderately Loud (talking over TV sounds she is intently watching. ) Thought Process: Goal Oriented ("i just need a home healyth aide in my home, she didnt come:. ) Thought Disorder: Not Present Hallucinations: Denies Suicidal Ideation: Denies, No Plan Homicidal Ideation: Denies, No Plan Insight/Judgement: Impaired ("not willing to acknowledge chief underwriter or assist treatment planning with Dr Rose. ) Sleep: Fair Appetite: Fair Muscle strength/Tone: Mild Hypotonicity Gait/Station: Deferred (stated her legs are failing and she uses a wheelchair.)
--- NOTE | 2017-10-18 16:59 | PN ---
Progress Note (short form) - Note Progress Note: Patient is 74 yo white female with accent, who is uncooperative with full interview, once i made her aware i was here to make a mental Health assessment. Client has history of HTN< HLD< HYPOTHYRIODISM, Dr Rose called consult to assess capacity. Apparently home environment is unsanitary, aide returned client to hospita after recent discharge. APS is involved, from previous reports. she continues to beligerent with blog writer , stated "leave the rooM' after short interview. Client has no past history of psychiatry admissions. Client denies any out patient treatment. denies depression, denies being a danger to self or others. "leave me alone". "why ask those questions". Client has Capacity to make decision. Involve director of home health services, meals on wheels, local community [facility], advent group if she is willing to assist in her home environment. Thanks for the consult. 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
[2017-10-18] MEDS: ATORVASTATIN CA 20 MG TABLET (FP) PO SCH (21:10)
[2017-10-18] MEDS: MONTELUKAST NA 10 MG TABLET PO SCH (21:10)
[2017-10-19] MEDS: ACETAMINOPHEN 325 MG TABLET (FP) PO PRN (03:00)
[2017-10-19] MEDS: LEVOTHYROXINE NA 25 MCG TABLET (FP) PO SCH (06:17)
[2017-10-19] MEDS: METOPROLOL TARTRATE 25 MG TABLET (FP) PO SCH (10:59)
[2017-10-19] MEDS: CYCLOBENZAPRINE HCL 10 MG TABLET (FP) PO SCH (10:59)
[2017-10-19] MEDS: RANITIDINE HCL 150 MG TABLET (FP) PO SCH (11:00)
[2017-10-19] MEDS: HEPARIN NA (PORCINE) 5,000 UNITS/ML 1ML VIAL SQ SCH ×2 (11:00→21:32)
[2017-10-19] MEDS: LACTOBACILLUS ACIDOPHILUS 1 EACH TAB (FP) PO SCH (11:00)
[2017-10-19] MEDS ORDERED: PT OWN MED DRAWER 7, Y5N ONE ×2 (11:04→19:26)
[2017-10-19] MEDS: FLUTICASONE PROP 0.05% 16 GM NASAL SPRAY NS SCH ×2 (11:05→21:31)
--- NOTE | 2017-10-19 11:42 | PN ---
Progress Note, Physician Chief Complaint: Unable to obtain, patient states she does not want to talk to me - Current Medication List Current Medications: Active Medications Acetaminophen (Tylenol -) 650 mg PO Q6H PRN PRN Reason: FEVER OR PAIN Last Admin: 10/19/17 03:00 Dose: 650 mg Albuterol Sulfate (Ventolin Hfa Inhaler -) 2 puff IH Q6H PRN PRN Reason: SHORTNESS OF BREATH Atorvastatin Calcium (Lipitor -) 20 mg PO HS [facility] Last Admin: 10/18/17 21:10 Dose: 20 mg Cyclobenzaprine HCl (Flexeril -) 5 mg PO DAILY [facility] Last Admin: 10/19/17 10:59 Dose: 5 mg Fluticasone Propionate (Flonase -) 1 spray NS BID [facility] Last Admin: 10/19/17 11:05 Dose: 1 spray Heparin Sodium (Porcine) (Heparin -) 5,000 unit SQ BID [facility] Last Admin: 10/19/17 11:00 Dose: Not Given Lactobacillus Acidophilus (Bacid -) 1 tab PO DAILY [facility] Last Admin: 10/19/17 11:00 Dose: 1 tab Levothyroxine Sodium (Synthroid -) 25 mcg PO DAILY@0700 [facility] Last Admin: 10/19/17 06:17 Dose: 25 mcg Metoprolol Tartrate (Lopressor -) 25 mg PO DAILY [facility] Last Admin: 10/19/17 10:59 Dose: 25 mg Montelukast Sodium (Singulair -) 10 mg PO HS [facility] Last Admin: 10/18/17 21:10 Dose: 10 mg Ranitidine HCl (Zantac -) 150 mg PO DAILY [facility] Last Admin: 10/19/17 11:00 Dose: 150 mg Tramadol HCl (Ultram -) 50 mg PO Q8H PRN PRN Reason: PAIN Last Admin: 10/18/17 21:10 Dose: 50 mg - Objective Vital Signs: Vital Signs Temperature 36.7 C 10/19/17 06:00 Pulse Rate 71 10/19/17 06:00 Respiratory Rate 18 10/19/17 06:00 Blood Pressure 126/63 10/19/17 06:00 O2 Sat by Pulse Oximetry (%) 95 10/18/17 21:00 Constitutional: Yes: Other (cannot perform physical exam secondary to patient hostility) Labs: CBC, BMP 10/18/17 07:15 10/18/17 07:15 Problem List - Problems (1) Back pain Code(s): M54.9 - DORSALGIA, UNSPECIFIED Qualifiers: Back pain location: low back pain Chronicity: chronic Back pain laterality: midline Sciatica presence: without sciatica Qualified Code(s): M54.5 - Low back pain; G89.29 - Other chronic pain; G89.29 - Other chronic pain (2) Bilateral knee pain Code(s): M25.561 - PAIN IN RIGHT KNEE; M25.562 - PAIN IN LEFT KNEE Qualifiers: Chronicity: acute Qualified Code(s): M25.561 - Pain in right knee; M25.562 - Pain in left knee; M25.562 - Pain in left knee (3) HLD (hyperlipidemia) Code(s): E78.5 - HYPERLIPIDEMIA, UNSPECIFIED (4) HTN (hypertension) Code(s): I10 - ESSENTIAL (PRIMARY) HYPERTENSION (5) Hypothyroid Code(s): E03.9 - HYPOTHYROIDISM, UNSPECIFIED Assessment/Plan (1) Back pain Assessment/Plan: -continue PT -continue tramadol -reviewed Dr Zepeda's note, will obtain pain management consult for possible injections Code(s): M54.9 - DORSALGIA, UNSPECIFIED Qualifiers: Back pain location: low back pain Chronicity: chronic Back pain laterality: midline Sciatica presence: without sciatica Qualified Code(s): M54.5 - Low back pain; G89.29 - Other chronic pain; G89.29 - Other chronic pain (2) Bilateral knee pain Assessment/Plan: -pain control -reviewed physiatry note -will obtain orthopedic evaluation Code(s): M25.561 - PAIN IN RIGHT KNEE; M25.562 - PAIN IN LEFT KNEE Qualifiers: Chronicity: acute Qualified Code(s): M25.561 - Pain in right knee; M25.562 - Pain in left knee; M25.562 - Pain in left knee (3) HLD (hyperlipidemia) Assessment/Plan: -continue statin Code(s): E78.5 - HYPERLIPIDEMIA, UNSPECIFIED (4) HTN (hypertension) Assessment/Plan: -continue metoprolol Code(s): I10 - ESSENTIAL (PRIMARY) HYPERTENSION (5) Hypothyroid Assessment/Plan: -continue synthroid Code(s): E03.9 - HYPOTHYROIDISM, UNSPECIFIED (6) Environment -again discussed options with patient concerning SNF and what would be needed -again not cooperative -patient states she does not want to see me, made her aware of the process of firing myself and having another physician take over care -will continue to see unless patient finds another accepting physician to follow her care in the hospital -await pain management and ortho consultation recommendations -possible discharge tomorrow pending above recommendations unless patient is will to cooperate with staff about next step to have her discharged to a SNF -psychiatry note reviewed, patient with capacity to make her own decisions
--- NOTE | 2017-10-19 12:48 | CONS ---
DATE OF CONSULTATION: 10/19/2017 DATE OF ADMISSION: 10/14/2017 PHYSICAL MEDICINE REHABILITATION CONSULTATION REFERRING PHYSICIAN: Cristhian Rose MD HISTORY OF PRESENT ILLNESS: The patient is a 77-year-old woman with a past medical history of lumbar stenosis and knee osteoarthritis, who was admitted on October 14 after recently being discharged following treatment with back pain. Patient states she was in a rehab for a long period of time, but presented to the emergency room originally on October 10 or October 11 and was treated for lower back pain and possible urinary tract infection. At the time, she underwent a CT of the lumbar spine on October 11, which showed no fracture, and some moderate to marked degenerative disc disease and facet changes. She also underwent x-rays of her knees, which demonstrated healed fracture of the left fibula, but there were degenerative changes noted in both knees as well as swelling. Patient was evaluated by physical therapy and was, on October 13, able to ambulate 10 feet with a rolling walker contact guard. Apparently, she was discharged to home on October 13, but was found by the home health aide unkempt with problems within the home environment. She also complained of back pain and was readmitted on October 14. Currently, the patient states she is having difficulty with her mobility because her legs feel like they give out on her. She also gets numbness and tingling in both legs and pain, which to her feels like it comes from her ankles and goes up both lower extremities. Patient underwent a CT of the lumbar spine, which was reviewed and did show lumbar stenosis at multiple levels including mild canal stenosis at L2-L3, L3-L4, and moderate canal stenosis at L4-L5. Patient again complains of her knees. She underwent blood work on admission, which showed normal WBC 8.6, hemoglobin 14.3, and platelet count 230. Her chemistry was within normal limits. Repeat blood work on October 18 showed a stable CBC, WBC 6.9, hemoglobin 12.2, platelet count 186. Chemistry was normal except for a borderline to low creatinine of 0.5. She did have an elevated TSH on October 15. Current medications include subcutaneous heparin for DVT prophylaxis as well as Synthroid, Tylenol, and Flexeril for pain. Patient was seen by physical therapy, able to ambulate 30 feet with a rolling walker and a contact guard level. It is uncertain whether she has any [facility]itent[facility] facility benefits available to her at this time. There is notation regarding her mental capacity, and the patient has the capacity to make decisions, but the patient herself is interested in going back to a rehab center. She apparently has been asked about total knee replacements in the past, but it is uncertain whether she would be a candidate at this point. REVIEW OF PAST MEDICAL AND SURGICAL HISTORY: Is extensive. She is not diabetic, but again has chronic orthopedic conditions. Also, hypertension, dyslipidemia, diverticulosis, hypothyroidism, history of a TIA. SOCIAL HISTORY: [id number]. She lives alone in a senior apartment. Premorbidly, she used a cane, but more recently was ambulatory with a walker, although she admits to a fall at home. REVIEW OF SYSTEMS: No lightheadedness, dizziness. No blurry vision or dull vision. No nausea, vomiting, difficulty swallowing, difficulty chewing. No chest pain or shortness of breath. No bowel/bladder incontinence. No fever or chills. Again, she has chronic knee pain, numbness in both lower extremities, pain that radiates down or up both lower extremities from her back. No complains of numbness, tingling, or weakness in the upper extremities. No significant weight change. PHYSICAL EXAMINATION: General: On examination, patient is an overweight woman seen lying in bed. She is in no acute distress. HEENT: She is normocephalic and atraumatic. Her extraocular muscles appear intact. She has no obvious facial weakness. Neck: Supple. Extremities: Without any pitting edema or calf tenderness. Skin: Without any rash or breakdown. Neuromuscular: She is awake, alert, oriented x3. Cranial nerves 2-12 grossly intact. Good strength and range in the upper extremities despite arthritic changes in the hands, 1st carpometacarpal joint, PIP and DIP joints. Normal sensation to pinprick in the upper extremities as well as throughout her lower extremities. She has fairly good motor power in the lower extremities, but crepitus. Medial and lateral joint line tenderness in both knees with at least a mild to moderate joint effusion. Good dorsiflexion, plantar flexion strength, symmetric reflexes, toes downgoing. Unable to examine her back, but mild tenderness across the lumbosacral paraspinals. God internal and external rotation in the hips. No assistive device available. Cannot stand and ambulate her at this time. OVERALL IMPRESSION: 1. Deficits mobility and activities of daily living. 2. Diffuse osteoarthritis including bilateral knees. 3. Lumbar stenosis, most severe at L4-L5, with neurogenic claudication. 4. General muscle weakness, probably due to the combination of underlying osteoarthritis as well as lumbar radiculopathy or polyradiculopathy. 5. Hypothyroidism. 6. Obesity . 7. Elevated risk for deep venous thrombosis due to immobility. 8. History of hypertension. 9. History of diverticulosis. 10. History of hyperlipidemia. 11. History of transient ischemic attack. PLANS AND SUGGESTIONS: 1. Case management regarding disposition and discharge planning. Patient would like to return to an inpatient rehabilitation, but it is uncertain whether she has any penitentiary facility benefits given the fact she states she was in a penitentiary facility for some time, but per the case management, penitentiary facility is the discharge plan for October 17 note. 2. Continue physical therapy for mobilization, balanced transfers, gait training, strengthening, reconditioning. 3. Patient may benefit from orthopedic consultation to consider knee replacement. 4. Patient may benefit from pain management for lumbar epidural steroid injections if not medically contraindicated. 5. Out of bed to chair. 6. I agree with subcutaneous heparin for DVT prophylaxis. 7. Would avoid Flexeril given the patients age. 8. Continue Tylenol. Thank you very much for this evaluation. Please monitor skin and bowels for any constipation. SHAYLA LADD M.D. [id number]
[2017-10-19] MEDS: traMADol HCL 50 MG TABLET PO PRN (21:31)
[2017-10-19] MEDS: MONTELUKAST NA 10 MG TABLET PO SCH (21:32)
[2017-10-19] MEDS: ATORVASTATIN CA 20 MG TABLET (FP) PO SCH (21:32)
[2017-10-20] MEDS: LEVOTHYROXINE NA 25 MCG TABLET (FP) PO SCH (06:25)
--- NOTE | 2017-10-20 11:18 | CONSULT ---
Consult - text type - Consultation Consultation Note: FULL CONSULT DICTATED IMP: SEVERE DJD B KNEES PLAN: NEEDS B TOTAL KNEE REPLACEMENT. WILL ARRANGE OUT PATIENT
[2017-10-20] MEDS: CYCLOBENZAPRINE HCL 10 MG TABLET (FP) PO SCH (11:24)
[2017-10-20] MEDS: LACTOBACILLUS ACIDOPHILUS 1 EACH TAB (FP) PO SCH (11:24)
[2017-10-20] MEDS: RANITIDINE HCL 150 MG TABLET (FP) PO SCH (11:26)
[2017-10-20] MEDS: HEPARIN NA (PORCINE) 5,000 UNITS/ML 1ML VIAL SQ SCH ×3 (11:26→21:34)
[2017-10-20] MEDS: METOPROLOL TARTRATE 25 MG TABLET (FP) PO SCH (11:26)
[2017-10-20] MEDS: FLUTICASONE PROP 0.05% 16 GM NASAL SPRAY NS SCH ×3 (11:27→21:34)
--- NOTE | 2017-10-20 12:12 | CONS ---
DATE OF CONSULTATION: 10/20/2017 HISTORY OF PRESENT ILLNESS: Patient is a 77-year-old female complaining of severe bilateral knee pain to the point that she is falling more frequently and having constant pain. Patient has had bilateral knee arthroscopies in the past as well as numerous injections of cortisone and hyaluronic acid and has tried therapy and nonsteroidals. Patient was told by other physicians that she requires bilateral total knee replacements. PHYSICAL EXAMINATION:Extremities: She has a great deal of crepitus with range of motion of both her knees with flexion contracture of about 3 degrees and flexes to about 95. Good motion, hip, ankle and toes. Otherwise neurovascularly intact. IMAGING: X-ray shows severe tricompartmental DJD of both knees, left greater than right. IMPRESSION: Severe degenerative joint disease, both knees. PLAN: Risks, benefits, alternatives discussed with patient in great detail. Patient realizes that she needs to have total knee replacements, but she has been scared in the past to have it, but she is beginning to realize the realization that she needs to have them done. As this is an elective procedure, patient can go home. She would benefit from weight loss and strengthening protocol in the interim and she can follow up in my office where we can electively schedule her for this procedure. BIJAN NAVA M.D. [id number]
--- NOTE | 2017-10-20 14:41 | PN ---
Progress Note, Physician Chief Complaint: Unable to obtain, patient today is yelling at me and telling me that I'm disgusting. - Current Medication List Current Medications: Active Medications Acetaminophen (Tylenol -) 650 mg PO Q6H PRN PRN Reason: FEVER OR PAIN Last Admin: 10/19/17 03:00 Dose: 650 mg Albuterol Sulfate (Ventolin Hfa Inhaler -) 2 puff IH Q6H PRN PRN Reason: SHORTNESS OF BREATH Atorvastatin Calcium (Lipitor -) 20 mg PO HS [facility] Last Admin: 10/19/17 21:32 Dose: 20 mg Cyclobenzaprine HCl (Flexeril -) 5 mg PO DAILY [facility] Last Admin: 10/20/17 11:24 Dose: 5 mg Fluticasone Propionate (Flonase -) 1 spray NS BID [facility] Last Admin: 10/20/17 11:27 Dose: 1 spray Heparin Sodium (Porcine) (Heparin -) 5,000 unit SQ BID [facility] Last Admin: 10/20/17 11:26 Dose: 5,000 unit Lactobacillus Acidophilus (Bacid -) 1 tab PO DAILY [facility] Last Admin: 10/20/17 11:24 Dose: 1 tab Levothyroxine Sodium (Synthroid -) 25 mcg PO DAILY@0700 [facility] Last Admin: 10/20/17 06:25 Dose: 25 mcg Metoprolol Tartrate (Lopressor -) 25 mg PO DAILY [facility] Last Admin: 10/20/17 11:26 Dose: 25 mg Montelukast Sodium (Singulair -) 10 mg PO [facility] Last Admin: 10/19/17 21:32 Dose: 10 mg Ranitidine HCl (Zantac -) 150 mg PO DAILY [facility] Last Admin: 10/20/17 11:26 Dose: 150 mg Tramadol HCl (Ultram -) 50 mg PO Q8H PRN PRN Reason: PAIN Last Admin: 10/19/17 21:31 Dose: 50 mg - Objective Vital Signs: Vital Signs Temperature 36.6 C 10/19/17 10:00 Pulse Rate 69 10/19/17 21:24 Respiratory Rate 18 10/20/17 09:00 Blood Pressure 118/59 10/19/17 21:24 O2 Sat by Pulse Oximetry (%) 94 L 10/20/17 09:00 Constitutional: Yes: Other (cannot do physical exam as patient is incredibly hostile towards me today) Labs: CBC, BMP 10/18/17 07:15 10/18/17 07:15 Problem List - Problems (1) Back pain Code(s): M54.9 - DORSALGIA, UNSPECIFIED Qualifiers: Back pain location: low back pain Chronicity: chronic Back pain laterality: midline Sciatica presence: without sciatica Qualified Code(s): M54.5 - Low back pain; G89.29 - Other chronic pain; G89.29 - Other chronic pain (2) Bilateral knee pain Code(s): M25.561 - PAIN IN RIGHT KNEE; M25.562 - PAIN IN LEFT KNEE Qualifiers: Chronicity: acute Qualified Code(s): M25.561 - Pain in right knee; M25.562 - Pain in left knee; M25.562 - Pain in left knee (3) HLD (hyperlipidemia) Code(s): E78.5 - HYPERLIPIDEMIA, UNSPECIFIED (4) HTN (hypertension) Code(s): I10 - ESSENTIAL (PRIMARY) HYPERTENSION (5) Hypothyroid Code(s): E03.9 - HYPOTHYROIDISM, UNSPECIFIED Assessment/Plan (1) Back pain Assessment/Plan: -continue PT -continue tramadol -awaiting recommendations from pain management Code(s): M54.9 - DORSALGIA, UNSPECIFIED Qualifiers: Back pain location: low back pain Chronicity: chronic Back pain laterality: midline Sciatica presence: without sciatica Qualified Code(s): M54.5 - Low back pain; G89.29 - Other chronic pain; G89.29 - Other chronic pain (2) Bilateral knee pain Assessment/Plan: -appreciate orthopedic evaluation -recommends outpatient knee replacement Code(s): M25.561 - PAIN IN RIGHT KNEE; M25.562 - PAIN IN LEFT KNEE Qualifiers: Chronicity: acute Qualified Code(s): M25.561 - Pain in right knee; M25.562 - Pain in left knee; M25.562 - Pain in left knee (3) HLD (hyperlipidemia) Assessment/Plan: -continue statin Code(s): E78.5 - HYPERLIPIDEMIA, UNSPECIFIED (4) HTN (hypertension) Assessment/Plan: -continue metoprolol Code(s): I10 - ESSENTIAL (PRIMARY) HYPERTENSION (5) Hypothyroid Assessment/Plan: -continue synthroid Code(s): E03.9 - HYPOTHYROIDISM, UNSPECIFIED (6) Environment -patient very hostile and insulting towards me today -again attempted to discuss with patient information we need in order to begin the medicaid process to see if she qualifies and can go to SNF -patient responds with foul language and insults, continues to remain uncooperative -patient again says she does not want to see me, explained again that if she finds a physician to take over care then I will transfer her to his/her service ; but until that time I have an obligation to continue care for her while she is in the hospital -I requested aircraft log clerk to give patient list of attending physicians who round in the hospital so that she can make request for them to continue care -patient has capacity to make her own decisions and is aware of her home environment, but as of right now refusing to provide further information or assistance that will allow us to explore other options -patient also verbally abusive to social work/case management/nursing staff, often using racial slurs and insults -awaiting pain management recommendations and evaluation if needs further hospitalization -will continue to attempt to help and assist patient concerning her home environment, however at this point every attempt at discussion from multiple sources is met with hostility -at this point, if pain management recommends outpatient follow up will discharge home -APS consulted, will follow up as an outpatient
[2017-10-20] MEDS: ACETAMINOPHEN 325 MG TABLET (FP) PO PRN (21:23)
[2017-10-20] MEDS: MONTELUKAST NA 10 MG TABLET PO SCH (21:23)
[2017-10-20] MEDS: ATORVASTATIN CA 20 MG TABLET (FP) PO SCH (21:23)
[2017-10-21] MEDS: LEVOTHYROXINE NA 25 MCG TABLET (FP) PO SCH (06:11)
[2017-10-21] MEDS ORDERED: PT OWN MED DRAWER 7, Y5N ONE (10:13)
[2017-10-21] MEDS: CYCLOBENZAPRINE HCL 10 MG TABLET (FP) PO SCH (10:28)
[2017-10-21] MEDS: RANITIDINE HCL 150 MG TABLET (FP) PO SCH (10:30)
[2017-10-21] MEDS: FLUTICASONE PROP 0.05% 16 GM NASAL SPRAY NS SCH (10:30)
[2017-10-21] MEDS: METOPROLOL TARTRATE 25 MG TABLET (FP) PO SCH (10:30)
[2017-10-21] MEDS: LACTOBACILLUS ACIDOPHILUS 1 EACH TAB (FP) PO SCH (10:30)
[2017-10-21] MEDS: HEPARIN NA (PORCINE) 5,000 UNITS/ML 1ML VIAL SQ SCH ×2 (10:36→21:38)
--- NOTE | 2017-10-21 10:43 | PN ---
Progress Note (short form) - Note Progress Note: Patient seen and examined Chart reviewed Currently sitting up in bed. Notes bilateral knee pain and low back discomfort. Also describes nasal congestion and respiratory congestion. Labs and notes reviewed. Patient will ultimately require TKRs according to Dr Mccarthy's note. Has previously been to rehab and is reluctant to return to a Nursing facility. Describes difficulty at her apartment, which she claims is currently uninhabitable Selected Entries 10/20/17 10/20/17 10/21/17 18:00 21:00 10:00 Temperature 98.2 F Pulse Rate 88 Respiratory 18 Rate Blood Pressure 124/74 O2 Sat by Pulse 95 Oximetry (%) Oxygen Delivery Room Air Method Laboratory Tests 10/15/17 10/18/17 10/18/17 09:00 07:15 07:15 WBC 6.9 Hgb 12.2 Hct 37.3 Plt Count 186 Sodium 140 Potassium 4.0 Chloride 104 Carbon Dioxide 27 BUN 10 D Creatinine 0.5 L Random Glucose 97 Calcium 8.6 Phosphorus 3.6 Magnesium 1.9 TSH 7.05 H D Chest Clear Cor RRR Abd Soft non-tender Ext No evidence of phlebitis No edema Diffuse degenerative joint disease Neuro No new focal deficits Alert and appropriate Assessment and Plan Knee pain Low back pain HPL HTN Hypothyroid TSH still elevated May require increased dose H/O TIA as per notes Disposition May require SNF/Rehab if unable to return home Social service input
[2017-10-21] MEDS: ALBUTEROL SO4 0.083% IH SOL 2.5 MG/3 ML VIAL.NEB. NEB PRN (11:59)
[2017-10-21] MEDS: traMADol HCL 50 MG TABLET PO PRN (12:22)
[2017-10-21] MEDS: guaiFENesin/D-METHORPHAN HB 10 ML UNIT-DOSE CUPS PO PRN ×2 (14:47→20:58)
[2017-10-21] MEDS ORDERED: BISACODYL 10 MG SUPP.RECT RC ONE (15:30)
[2017-10-21] MEDS: MONTELUKAST NA 10 MG TABLET PO SCH (21:38)
[2017-10-21] MEDS: ATORVASTATIN CA 20 MG TABLET (FP) PO SCH (21:38)
[2017-10-21] MEDS: ACETAMINOPHEN 325 MG TABLET (FP) PO PRN (21:42)
[2017-10-22] MEDS: traMADol HCL 50 MG TABLET PO PRN ×2 (01:40→13:01)
[2017-10-22] MEDS: LEVOTHYROXINE NA 25 MCG TABLET (FP) PO SCH (06:20)
[2017-10-22] MEDS ORDERED: PT OWN MED DRAWER 7, Y5N ONE ×4 (07:50→22:20)
[2017-10-22] MEDS: guaiFENesin/D-METHORPHAN HB 10 ML UNIT-DOSE CUPS PO PRN ×2 (07:54→15:49)
--- NOTE | 2017-10-22 09:25 | PN ---
Progress Note (short form) - Note Progress Note: Patient seen and examined Chart reviewed Currently sitting up in bed, alert and appropriate. Notes bilateral knee pain and low back discomfort. Describes less nasal and respiratory congestion, having taken the inhalers and cough suppressant. Constipation noted. Labs and notes reviewed. Patient will ultimately require TKRs according to Dr Mccarthy's note. Has previously been to rehab and is reluctant to return to a Nursing facility. Describes difficulty at her apartment, which she claims is currently uninhabitable. Will ask for Social Service intervention Selected Entries 10/21/17 10/22/17 21:00 06:00 Temperature 97.4 F L Pulse Rate 65 Respiratory 20 Rate Blood Pressure 131/70 O2 Sat by Pulse 96 Oximetry (%) Oxygen Delivery Room Air Method Chest Clear Cor RRR Abd Soft non-tender Ext No evidence of phlebitis No edema Diffuse degenerative joint disease Neuro No new focal deficits Alert and appropriate Assessment and Plan Knee pain Low back pain HPL HTN Hypothyroid TSH still elevated May require increased dose H/O TIA as per notes URI Improved symptoms Constipation Miralax as needed Disposition May require SNF/Rehab if unable to return home. Social service input
[2017-10-22] MEDS: CYCLOBENZAPRINE HCL 10 MG TABLET (FP) PO SCH (11:28)
[2017-10-22] MEDS: RANITIDINE HCL 150 MG TABLET (FP) PO SCH (11:28)
[2017-10-22] MEDS: HEPARIN NA (PORCINE) 5,000 UNITS/ML 1ML VIAL SQ SCH ×2 (11:28→21:00)
[2017-10-22] MEDS: METOPROLOL TARTRATE 25 MG TABLET (FP) PO SCH (11:28)
[2017-10-22] MEDS: LACTOBACILLUS ACIDOPHILUS 1 EACH TAB (FP) PO SCH (11:29)
[2017-10-22] MEDS: ALBUTEROL SO4 0.083% IH SOL 2.5 MG/3 ML VIAL.NEB. NEB PRN (12:09)
[2017-10-22] MEDS: ATORVASTATIN CA 20 MG TABLET (FP) PO SCH (21:01)
[2017-10-22] MEDS: MONTELUKAST NA 10 MG TABLET PO SCH (21:01)
[2017-10-22] MEDS: ACETAMINOPHEN 325 MG TABLET (FP) PO PRN (21:06)
[2017-10-22] MEDS: FLUTICASONE PROP 0.05% 16 GM NASAL SPRAY NS PRN (22:16)
[2017-10-23] MEDS: LEVOTHYROXINE NA 25 MCG TABLET (FP) PO SCH (06:20)
[2017-10-23] MEDS: LACTOBACILLUS ACIDOPHILUS 1 EACH TAB (FP) PO SCH (09:59)
[2017-10-23] MEDS: RANITIDINE HCL 150 MG TABLET (FP) PO SCH (09:59)
[2017-10-23] MEDS: METOPROLOL TARTRATE 25 MG TABLET (FP) PO SCH (09:59)
[2017-10-23] MEDS: CYCLOBENZAPRINE HCL 10 MG TABLET (FP) PO SCH (09:59)
[2017-10-23] MEDS: HEPARIN NA (PORCINE) 5,000 UNITS/ML 1ML VIAL SQ SCH ×3 (10:00→21:54)
[2017-10-23] MEDS: guaiFENesin/D-METHORPHAN HB 10 ML UNIT-DOSE CUPS PO PRN ×2 (10:00→16:25)
--- NOTE | 2017-10-23 10:00 | PN ---
Progress Note (short form) - Note Progress Note: Patient seen and examined Chart reviewed Currently sitting up in bed, alert and appropriate. Notes bilateral knee pain and low back discomfort. Some ankle discomfort noted this AM as well. Describes improved nasal and respiratory congestion, having taken the inhalers and cough suppressant. Constipation persists. Labs and notes reviewed. Patient will ultimately require TKRs according to Dr Mccarthy's note. Has previously been to rehab and is reluctant to return to a Nursing facility. Describes difficulty at her apartment, which she claims is currently uninhabitable. Will ask for Social Service intervention Selected Entries 10/22/17 10/23/17 21:00 06:00 Temperature 98.0 F Pulse Rate 68 Respiratory 20 Rate Blood Pressure 140/69 O2 Sat by Pulse 95 Oximetry (%) Oxygen Delivery Room Air Method Chest Clear Cor RRR Abd Soft non-tender Ext No evidence of phlebitis No edema Diffuse degenerative joint disease Neuro No new focal deficits Alert and appropriate Assessment and Plan Knee pain Low back pain HPL HTN Hypothyroid TSH still elevated May require increased dose H/O TIA as per notes URI Improved symptoms Constipation Miralax as needed Disposition May require SNF/Rehab if unable to return home. Social service input
[2017-10-23] MEDS: traMADol HCL 50 MG TABLET PO PRN (15:35)
[2017-10-23] MEDS: ATORVASTATIN CA 20 MG TABLET (FP) PO SCH (21:50)
[2017-10-23] MEDS: MONTELUKAST NA 10 MG TABLET PO SCH (21:50)
[2017-10-23] MEDS: ACETAMINOPHEN 325 MG TABLET (FP) PO PRN (22:24)
[2017-10-24] MEDS: LEVOTHYROXINE NA 25 MCG TABLET (FP) PO SCH (06:25)
[2017-10-24] MEDS: guaiFENesin/D-METHORPHAN HB 10 ML UNIT-DOSE CUPS PO PRN ×2 (06:42→11:00)
--- NOTE | 2017-10-24 09:17 | PN ---
Progress Note (short form) - Note Progress Note: Patient seen and examined Chart reviewed Currently sitting up in bed, alert and appropriate. Notes bilateral knee pain and low back discomfort. Describes improved nasal and respiratory congestion, previously having taken the inhalers and cough suppressant. Labs and notes reviewed. Patient will ultimately require TKRs according to Dr Mccarthy's note. Has previously been to rehab and is reluctant to return to a Nursing facility. Describes difficulty at her apartment, which she claims is currently uninhabitable. Social Service intervention ongoing. May need to be discharged with input for APS. Selected Entries 10/23/17 10/24/17 21:00 06:00 Temperature 98.2 F Pulse Rate 68 Respiratory 20 Rate Blood Pressure 129/52 O2 Sat by Pulse 96 Oximetry (%) Oxygen Delivery Room Air Method Chest Clear Cor RRR Abd Soft non-tender Ext No evidence of phlebitis No edema Diffuse degenerative joint disease Neuro No new focal deficits Alert and appropriate Assessment and Plan Knee pain Low back pain HPL HTN Hypothyroid TSH still elevated May require increased dose H/O TIA as per notes URI Improved symptoms Constipation Miralax as needed Disposition May require SNF/Rehab if unable to return home. Social service input to consider APS for placement
[2017-10-24] MEDS: METOPROLOL TARTRATE 25 MG TABLET (FP) PO SCH (10:48)
[2017-10-24] MEDS: CYCLOBENZAPRINE HCL 10 MG TABLET (FP) PO SCH (10:49)
[2017-10-24] MEDS: HEPARIN NA (PORCINE) 5,000 UNITS/ML 1ML VIAL SQ SCH ×2 (10:50→21:28)
[2017-10-24] MEDS: LACTOBACILLUS ACIDOPHILUS 1 EACH TAB (FP) PO SCH (10:50)
[2017-10-24] MEDS: RANITIDINE HCL 150 MG TABLET (FP) PO SCH (10:51)
[2017-10-24] MEDS: ALBUTEROL SO4 0.083% IH SOL 2.5 MG/3 ML VIAL.NEB. NEB PRN ×2 (11:38→21:25)
[2017-10-24] MEDS: traMADol HCL 50 MG TABLET PO PRN (15:43)
[2017-10-24] MEDS: ATORVASTATIN CA 20 MG TABLET (FP) PO SCH (21:28)
[2017-10-24] MEDS: MONTELUKAST NA 10 MG TABLET PO SCH (21:28)
[2017-10-24] MEDS: POLYETHYLENE GLYCOL 3350 119 GM BTL PO PRN (21:35)
[2017-10-24] MEDS: ACETAMINOPHEN 325 MG TABLET (FP) PO PRN (21:35)
[2017-10-25] MEDS: ALBUTEROL SO4 0.083% IH SOL 2.5 MG/3 ML VIAL.NEB. NEB PRN ×3 (06:25→23:30)
[2017-10-25] MEDS: LEVOTHYROXINE NA 25 MCG TABLET (FP) PO SCH (06:44)
--- NOTE | 2017-10-25 07:59 | CONSULT ---
Consult Consult Specialty:: pain medicine Referred by:: dr lagunas Reason for Consultation:: back pain - History of Present Illness Chief Complaint: back pain History of Present Illness: 77 yrs old F with chronic back pain poor gait and stance H/O HTN, dyslipedemia, gait in stability, discharge home on Monday after treated for back pain, patient was Dc home with test engine evaluator, yesterday LOG WASHER found , patient home is very unkept with mouse dropping and fungus in the refrigerator, house is unhabitable, patient also c/o back pain says she was discharge prematurely so came to ED for evaluation , in the Ed CBC, BMP, UA are normal, CT scan Lumboscaral spine un remarkable, admitted for pain control and evaluation by SW and adult protection service for safe discharge. Currently pain is located in her bilateral shoulders, knees and lower back. Pain score 9/10 when standing and walking. 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 Cardio/Vascular: Yes: HTN, Hyperlipdemia Gastrointestinal: Yes: Diverticulosis Musculoskeletal: Yes: Osteoarthritis Endocrine: Yes: Hypothyroidism - Alcohol/Substance Use Hx Alcohol Use: No History of Substance Use: reports: None - Smoking History Smoking history: Never smoked Have you smoked in the past 12 months: No - Social History History of Recent Travel: No Home Medications - Allergies Allergies/Adverse Reactions: Allergies Allergy/AdvReac Type Severity Reaction Status Date / Time Penicillins Allergy Severe Swelling Verified 10/14/17 10:52 milk AdvReac Verified 10/14/17 10:52 - Home Medications Home Medications: Ambulatory Orders Alendronate Na [Fosamax (Weekly)] 70 mg PO Q7D 10/10/17 Atorvastatin Ca [Lipitor] 20 mg NR DAILY 10/10/17 Famotidine 10 mg PO DAILY 10/10/17 Levothyroxine [Synthroid -] 25 mcg PO DAILY 10/10/17 Metoprolol Tartrate 25 mg PO DAILY 10/10/17 Mometasone Furoate 50 mcg PO BID 10/10/17 Montelukast Na [Singulair -] 10 mg PO DAILY 10/10/17 Omeprazole 10 mg PO DAILY 10/10/17 Cyclobenzaprine HCl 5 mg PO DAILY #30 tablet 10/13/17 Lactobacillus Acidophilus [Bacid -] 1 tab PO DAILY #7 tab 10/13/17 Physical Exam Vital Signs: Vital Signs Temperature 98.6 F 10/24/17 23:11 Pulse Rate 70 10/24/17 23:11 Respiratory Rate 18 10/24/17 23:11 Blood Pressure 125/70 10/24/17 23:11 O2 Sat by Pulse Oximetry (%) 95 10/24/17 21:00 Musculoskeletal: Yes: Back Pain Labs: CBC, BMP 10/18/17 07:15 10/18/17 07:15 Assessment/Plan Lower back pain, bilateral shoulder and knee pain secondary to arthritis 1. Patient is considering bilateral knee replacements as an outpatient 2. Patient can consider cortisone shots in her lower back and bilateral shoulders. 3. Physical therapy/Rehab 4. Pharmacologically- NSAIDs can be used if no contraindications. Can continue tramadol prn pain. COnsider gabapentin 100mg PO q8h
--- NOTE | 2017-10-25 09:10 | PN ---
Progress Note (short form) - Note Progress Note: Patient seen and examined Chart reviewed Currently sitting up in bed, alert and appropriate. Notes bilateral knee pain and low back discomfort. Describes improved nasal and respiratory congestion, previously having taken the inhalers and cough suppressant. Labs and notes reviewed. Patient will ultimately require TKRs according to Dr Mccarthy's note. Has previously been to rehab and is reluctant to return to a Nursing facility. Describes difficulty at her apartment, which she claims is currently uninhabitable. Social Service intervention ongoing. May need to be discharged with input for APS. PT notes reviewed Required close contact guarding of 1 with transfers and with use of rolling walker - took 10 steps , limited by fatigue. Notes some sleep disturbance Dr De Los Santos's note reviewed in regard to pain management Selected Entries 10/24/17 10/24/17 21:00 23:11 Temperature 98.6 F Pulse Rate 70 Respiratory 18 Rate Blood Pressure 125/70 O2 Sat by Pulse 95 Oximetry (%) Oxygen Delivery Room Air Method Chest Clear Cor RRR Abd Soft non-tender Ext No evidence of phlebitis No edema Diffuse degenerative joint disease Neuro No new focal deficits Alert and appropriate Assessment and Plan Knee pain Low back pain HPL HTN Hypothyroid TSH still elevated May require increased dose Has been on current dose for over one year according to the patient. Will increase to 50 cg po daily H/O TIA as per notes URI Improved symptoms Constipation Miralax as needed Insomnia Hold off on further Rx for now Disposition May require SNF/Rehab if unable to return home. Social service input to consider APS for placement
[2017-10-25] MEDS: CYCLOBENZAPRINE HCL 10 MG TABLET (FP) PO SCH (10:32)
[2017-10-25] MEDS: HEPARIN NA (PORCINE) 5,000 UNITS/ML 1ML VIAL SQ SCH ×2 (10:32→21:09)
[2017-10-25] MEDS: LACTOBACILLUS ACIDOPHILUS 1 EACH TAB (FP) PO SCH (10:32)
[2017-10-25] MEDS: METOPROLOL TARTRATE 25 MG TABLET (FP) PO SCH (10:32)
[2017-10-25] MEDS: RANITIDINE HCL 150 MG TABLET (FP) PO SCH (10:32)
[2017-10-25] MEDS: guaiFENesin/D-METHORPHAN HB 10 ML UNIT-DOSE CUPS PO PRN ×2 (11:40→21:13)
[2017-10-25] MEDS: traMADol HCL 50 MG TABLET PO PRN (11:43)
[2017-10-25] MEDS: ATORVASTATIN CA 20 MG TABLET (FP) PO SCH (21:09)
[2017-10-25] MEDS: MONTELUKAST NA 10 MG TABLET PO SCH (21:10)
[2017-10-25] MEDS: ACETAMINOPHEN 325 MG TABLET (FP) PO PRN (21:14)
[2017-10-26] MEDS: LEVOTHYROXINE NA 50 MCG TABLET (FP) PO SCH (06:51)
--- NOTE | 2017-10-26 09:19 | PN ---
Progress Note (short form) - Note Progress Note: Patient seen and examined Chart reviewed Currently sitting up in bed, alert and appropriate. Notes bilateral knee pain and low back discomfort. Describes improved nasal and respiratory congestion, previously having taken the inhalers and cough suppressant. Labs and notes reviewed. Patient will ultimately require TKRs according to Dr Mccarthy's note. Has previously been to rehab and is reluctant to return to a Nursing facility, although she may not have coverage days available Describes difficulty at her apartment, which she claims is currently uninhabitable. Social Service intervention ongoing. May need to be discharged with input for APS. PT notes reviewed Required close contact guarding of 1 with transfers and with use of rolling walker - took 10 steps , limited by fatigue. Notes some sleep disturbance Dr De Los Santos's note reviewed in regard to pain management Selected Entries 10/25/17 10/25/17 14:47 21:00 Temperature 98.2 F Pulse Rate 71 Respiratory 18 Rate Blood Pressure 101/64 O2 Sat by Pulse 96 Oximetry (%) Oxygen Delivery Room Air Method Chest Clear Cor RRR Abd Soft non-tender Ext No evidence of phlebitis No edema Diffuse degenerative joint disease Neuro No new focal deficits Alert and appropriate Assessment and Plan Knee pain Low back pain HPL HTN Hypothyroid TSH still elevated May require increased dose Has been on current dose for over one year according to the patient. Will increase to 50 cg po daily H/O TIA as per notes URI Improved symptoms Constipation Miralax as needed Insomnia Hold off on further Rx for now H/O Lung nodule noted from office records according to her PCP Will order CXR Disposition May require SNF/Rehab if unable to return home. Social service input to consider APS for placement
[2017-10-26] MEDS: RANITIDINE HCL 150 MG TABLET (FP) PO SCH (09:49)
[2017-10-26] MEDS: METOPROLOL TARTRATE 25 MG TABLET (FP) PO SCH (09:49)
[2017-10-26] MEDS: CYCLOBENZAPRINE HCL 10 MG TABLET (FP) PO SCH (09:49)
[2017-10-26] MEDS: LACTOBACILLUS ACIDOPHILUS 1 EACH TAB (FP) PO SCH (09:49)
[2017-10-26] MEDS: HEPARIN NA (PORCINE) 5,000 UNITS/ML 1ML VIAL SQ SCH ×3 (09:50→21:37)
[2017-10-26] MEDS: guaiFENesin/D-METHORPHAN HB 10 ML UNIT-DOSE CUPS PO PRN ×2 (09:52→18:49)
[2017-10-26] MEDS: MONTELUKAST NA 10 MG TABLET PO SCH (21:29)
[2017-10-26] MEDS: ATORVASTATIN CA 20 MG TABLET (FP) PO SCH (21:29)
[2017-10-26] MEDS: ACETAMINOPHEN 325 MG TABLET (FP) PO PRN (21:33)
[2017-10-26] MEDS ORDERED: PT OWN MED DRAWER 7, Y5N ONE (21:33)
[2017-10-27] MEDS: ACETAMINOPHEN 325 MG TABLET (FP) PO PRN ×2 (02:33→23:04)
[2017-10-27] MEDS: LEVOTHYROXINE NA 50 MCG TABLET (FP) PO SCH (06:55)
--- NOTE | 2017-10-27 09:26 | PN ---
Progress Note (short form) - Note Progress Note: Patient seen and examined Chart reviewed Currently sitting up in bed, alert and appropriate. Notes bilateral knee pain which limits her ambulatory capacity , as well as low back discomfort. Describes improved nasal and respiratory congestion, previously having taken the inhalers and cough suppressant. Labs and notes reviewed. Patient will ultimately require TKRs according to Dr Mccarthy' s note. Has previously been to rehab and is reluctant to return to a Nursing facility, although she may not have coverage days available Describes difficulty at her apartment, which she claims is currently uninhabitable. Social Service intervention ongoing. May need to be discharged with input for APS. PT notes reviewed. Required close contact guarding of one for transfers and ambulation with rolling walker. Was able to walk 15 feet twice. Notes some sleep disturbance Dr De Los Santos's note reviewed in regard to pain management. CXR read as clear, with no active disease No nodule noted, although a CT scan would be more definitive in this regard. Selected Entries 10/25/17 10/26/17 14:47 21:00 Temperature 98.2 F Pulse Rate 71 Respiratory 18 Rate Blood Pressure 101/64 O2 Sat by Pulse 95 Oximetry (%) Oxygen Delivery Room Air Method Chest Clear Cor RRR Abd Soft non-tender Ext No evidence of phlebitis No edema Diffuse degenerative joint disease Neuro No new focal deficits Alert and appropriate Assessment and Plan Knee pain Consider the addition of gabapentin Start with 100 mg po hs only Low back pain HPL HTN Hypothyroid TSH still elevated May require increased dose Has been on current dose for over one year according to the patient. Will increase to 50 mcg po daily H/O TIA as per notes URI Improved symptoms Constipation Miralax as needed Insomnia Hold off on further Rx for now H/O Lung nodule noted from office records according to her PCP CXR reviewed May require outpatient CT for completeness Disposition May require SNF/Rehab if unable to return home. Social service input to consider APS for placement
[2017-10-27] MEDS: GABAPENTIN 100 MG CAPSULE (FP) PO SCH ×2 (11:00→11:01)
[2017-10-27] MEDS: LACTOBACILLUS ACIDOPHILUS 1 EACH TAB (FP) PO SCH (11:01)
[2017-10-27] MEDS: RANITIDINE HCL 150 MG TABLET (FP) PO SCH (11:01)
[2017-10-27] MEDS: METOPROLOL TARTRATE 25 MG TABLET (FP) PO SCH (11:01)
[2017-10-27] MEDS: HEPARIN NA (PORCINE) 5,000 UNITS/ML 1ML VIAL SQ SCH ×2 (11:02→23:00)
[2017-10-27] MEDS: CYCLOBENZAPRINE HCL 10 MG TABLET (FP) PO SCH (11:02)
[2017-10-27] MEDS: guaiFENesin/D-METHORPHAN HB 10 ML UNIT-DOSE CUPS PO PRN (12:21)
[2017-10-27] MEDS: FLUTICASONE PROP 0.05% 16 GM NASAL SPRAY NS PRN (12:22)
[2017-10-27] MEDS ORDERED: ALBUTEROL SO4 0.083% IH SOL 2.5 MG/3 ML VIAL.NEB. NEB PRN (20:40)
[2017-10-27] MEDS: MONTELUKAST NA 10 MG TABLET PO SCH (23:00)
[2017-10-27] MEDS: ATORVASTATIN CA 20 MG TABLET (FP) PO SCH (23:01)
[2017-10-28] MEDS: LEVOTHYROXINE NA 50 MCG TABLET (FP) PO SCH (06:49)
--- NOTE | 2017-10-28 10:09 | PN ---
Progress Note (short form) - Note Progress Note: PATIENT WITH B/L KNEE / L-S SPINE PAIN. DIFFICULTY AMBULATING . PT RX IN PROGRESS . WILL NEED REHAB AND PER DR SETHI'S NOTE TKR AT A LATER TIME. COMPLAINS OF COUGH / URI SYMPTOMS . CXR NEG Laboratory Tests 10/15/17 10/18/17 10/18/17 09:00 07:15 07:15 WBC 6.9 RBC 4.03 Hgb 12.2 Hct 37.3 Plt Count 186 Sodium 140 Potassium 4.0 Chloride 104 Carbon Dioxide 27 Anion Gap 9 BUN 10 D Creatinine 0.5 L Random Glucose 97 Calcium 8.6 Phosphorus 3.6 Magnesium 1.9 TSH 7.05 H D P/E / V/S ALL STABLE. CHEST / CLEAR COR S1 S2 / NSR ABD <> SOFT NONTENDER EXT / NO EDEMA / NO CALF TENDERNESS / ADVANCED OA CHANGES BOTH KNEES. 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 URI HPL HTN HYPOTHYROIDISM HY OF TIA PLAN . PT RX REHAB RX / PLACEMENT. ROBITUSSIN FOR COUGH. FOLLOW TSH 2--3 WEEKS WITH RECENT INCREASE SYNTHROID.
[2017-10-28] MEDS ORDERED: PT OWN MED DRAWER 7, Y5N ONE (10:19)
[2017-10-28] MEDS: RANITIDINE HCL 150 MG TABLET (FP) PO SCH (10:46)
[2017-10-28] MEDS: LACTOBACILLUS ACIDOPHILUS 1 EACH TAB (FP) PO SCH (10:46)
[2017-10-28] MEDS: CYCLOBENZAPRINE HCL 10 MG TABLET (FP) PO SCH (10:46)
[2017-10-28] MEDS: METOPROLOL TARTRATE 25 MG TABLET (FP) PO SCH (10:47)
[2017-10-28] MEDS: guaiFENesin/D-METHORPHAN HB 10 ML UNIT-DOSE CUPS PO PRN ×2 (10:47→20:25)
[2017-10-28] MEDS: HEPARIN NA (PORCINE) 5,000 UNITS/ML 1ML VIAL SQ SCH ×2 (10:47→21:21)
[2017-10-28] MEDS: FLUTICASONE PROP 0.05% 16 GM NASAL SPRAY NS PRN (10:50)
[2017-10-28] MEDS: POLYETHYLENE GLYCOL 3350 119 GM BTL PO PRN (13:29)
[2017-10-28] MEDS: ACETAMINOPHEN 325 MG TABLET (FP) PO PRN (21:21)
[2017-10-28] MEDS: ATORVASTATIN CA 20 MG TABLET (FP) PO SCH (21:21)
[2017-10-28] MEDS: MONTELUKAST NA 10 MG TABLET PO SCH (21:21)
[2017-10-29] MEDS: guaiFENesin/D-METHORPHAN HB 10 ML UNIT-DOSE CUPS PO PRN ×4 (05:03→22:53)
[2017-10-29] MEDS: LEVOTHYROXINE NA 50 MCG TABLET (FP) PO SCH (06:18)
--- NOTE | 2017-10-29 08:47 | PN ---
Progress Note (short form) - Note Progress Note: PATIENT REMAINS UNCHANGED WITH COMPLAINTS OF KNEE & BACK PAIN. SHE WILL REQUIRE PT RX WITH POSSIBLE PLACEMENT SNF. SHE STATES HER COUGH HAS IMPROVED WITH ROBITUSSIN. Selected Entries 10/29/17 06:28 Temperature 96.4 F L Pulse Rate 62 Respiratory 12 Rate Blood Pressure 144/72 Laboratory Tests 10/15/17 10/18/17 10/18/17 09:00 07:15 07:15 WBC 6.9 RBC 4.03 Hgb 12.2 Hct 37.3 Plt Count 186 Sodium 140 Potassium 4.0 Chloride 104 Carbon Dioxide 27 Anion Gap 9 BUN 10 D Creatinine 0.5 L Random Glucose 97 Calcium 8.6 Phosphorus 3.6 Magnesium 1.9 TSH 7.05 H D P/E / STABLE. CHEST / CLEAR P & A. COR / S1 S2 / NSR / NO M / NO G . ABD <> SOFT NON TENDER / NO REBOUND / NO GUARDING. EXT /NO CALF TENDERNESS / NO EDEMA / ADVANCED OA CHANGES BOTH KNEES. 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 URI / BRONCHITIS HPL HTN HYPOTHYROIDISM HY OF TIA PLAN : ROBITUSSIN PRN. PT RX WITH POSSIBLE REHAB PLACEMENT. CONTINUE WITH INCREASED DOSE OF SYNTHROID. MONITOR TSH LEVEL .
[2017-10-29] MEDS: CYCLOBENZAPRINE HCL 10 MG TABLET (FP) PO SCH (09:00)
[2017-10-29] MEDS: METOPROLOL TARTRATE 25 MG TABLET (FP) PO SCH (09:00)
[2017-10-29] MEDS: LACTOBACILLUS ACIDOPHILUS 1 EACH TAB (FP) PO SCH (09:00)
[2017-10-29] MEDS: RANITIDINE HCL 150 MG TABLET (FP) PO SCH (09:00)
[2017-10-29] MEDS: HEPARIN NA (PORCINE) 5,000 UNITS/ML 1ML VIAL SQ SCH ×2 (09:00→22:52)
[2017-10-29] MEDS: ACETAMINOPHEN 325 MG TABLET (FP) PO PRN ×3 (09:05→22:52)
--- NOTE | 2017-10-29 18:01 | PN ---
Progress Note (short form) - Note Progress Note: Pt seen and examined. She is 77, with chronic c/o B/L knee pain and LBP. No acute trauma. No radiculopathy. PE She is over weight No signs of acute trauma B/L knee are mildly swollen, tender to touch over the joint line. Good ROM, NVI, Good strength LB is stiff, no radiculopathy Xrays Show B/L knee OA CT Scan Shows LS OA Imp 77 yo F with B/L knee and LS OA Rec For low back I rec P.T., can be done as an out pt For both knees I rec a staged B/L TKR. She was instructed to f/u with Dr Mccarthy as an out pt for discussion of surgery.
[2017-10-29] MEDS: MONTELUKAST NA 10 MG TABLET PO SCH (22:53)
[2017-10-29] MEDS: ATORVASTATIN CA 20 MG TABLET (FP) PO SCH (22:53)
[2017-10-30] MEDS: LEVOTHYROXINE NA 50 MCG TABLET (FP) PO SCH (06:24)
[2017-10-30] MEDS: guaiFENesin/D-METHORPHAN HB 10 ML UNIT-DOSE CUPS PO PRN ×3 (07:08→21:04)
[2017-10-30] MEDS: ACETAMINOPHEN 325 MG TABLET (FP) PO PRN ×2 (07:40→21:03)
[2017-10-30] MEDS: METOPROLOL TARTRATE 25 MG TABLET (FP) PO SCH (09:02)
[2017-10-30] MEDS: CYCLOBENZAPRINE HCL 10 MG TABLET (FP) PO SCH (09:02)
[2017-10-30] MEDS: RANITIDINE HCL 150 MG TABLET (FP) PO SCH (09:02)
[2017-10-30] MEDS: LACTOBACILLUS ACIDOPHILUS 1 EACH TAB (FP) PO SCH (09:02)
[2017-10-30] MEDS: HEPARIN NA (PORCINE) 5,000 UNITS/ML 1ML VIAL SQ SCH ×3 (09:02→21:03)
--- NOTE | 2017-10-30 09:17 | PN ---
Progress Note (short form) - Note Progress Note: PATIENT WITH NO CHANGE WITH REGARD TO KNEE & BACK PAIN. PAIN IS TOLERABLE AND NOT SIGNIFICANT AT REST . SEEN BY ORTHO YESTERDAY . TKR RECOMMENDED. SHE DENIES ANY CP / SOB / PALPITATIONS. Laboratory Tests Selected Entries 10/30/17 07:39 Temperature 97.8 F Pulse Rate 74 Respiratory 18 Rate Blood Pressure 138/63 P/E / STABLE. CHEST / CLEAR P & A. COR / S1 S2 / NSR / NO M / NO G . ABD <> SOFT NON TENDER . EXT <> Compression stockings in place. IMP : B/L OA KNEES DISCOGENIC DISEASE L-S SPINE FORAMINAL STENOSIS. HPL HTN HYPOTHYROIDISM HY OF TIA PLAN : PER ORTHO / OUTPATIENT TKR. PT RX POSSIBLE REHAB PLACEMENT . REPEAT TSH ON INCREASED DOSE SYNTHROID 1--2 WEEKS.
[2017-10-30] MEDS ORDERED: PT OWN MED DRAWER 7, Y5N ONE ×3 (09:28→17:19)
[2017-10-30] MEDS: FLUTICASONE PROP 0.05% 16 GM NASAL SPRAY NS PRN (17:17)
[2017-10-30] MEDS: ATORVASTATIN CA 20 MG TABLET (FP) PO SCH (21:03)
[2017-10-30] MEDS: MONTELUKAST NA 10 MG TABLET PO SCH (21:03)
[2017-10-31] MEDS: LEVOTHYROXINE NA 50 MCG TABLET (FP) PO SCH (06:25)
--- NOTE | 2017-10-31 08:53 | PN ---
Progress Note (short form) - Note Progress Note: Patient seen and examined Chart reviewed Currently sitting up in bed, alert and appropriate. Notes from the past 3 days reviewed. Did not tolerate gabapentin. Dr Gomez's note appreciated. Persistence of bilateral knee pain which limits her ambulatory capacity. Stable low back discomfort. Describes improved nasal and respiratory congestion, previously having taken the inhalers and cough suppressant. Labs and notes reviewed. Patient will ultimately require TKRs according to Dr Mccarthy's note. Has previously been to rehab and is reluctant to return to a Nursing facility, although she may not have coverage days available Describes difficulty at her apartment, which she claims is currently uninhabitable. Social Service intervention ongoing. May need to be discharged with input for APS. PT notes reviewed. Required close contact guarding of one for transfers and ambulation with rolling walker. Was able to walk 15 feet twice. Notes some sleep disturbance Dr De Los Santos's note reviewed in regard to pain management. CXR read as clear, with no active disease No nodule noted, although a CT scan would be more definitive in this regard. Patient now questioning whether she can have her nee surgery performed during this admission. Selected Entries 10/30/17 10/30/17 21:00 22:00 Temperature 97.4 F L Pulse Rate 77 Respiratory 20 Rate Blood Pressure 134/63 O2 Sat by Pulse 96 Oximetry (%) Oxygen Delivery Room Air Method Chest Clear Cor RRR Abd Soft non-tender Ext No evidence of phlebitis No edema Diffuse degenerative joint disease Neuro No new focal deficits Alert and appropriate Assessment and Plan Knee pain Did not tolerate gabapentin Low back pain HPL HTN Will change metoprolol for tartrate (ordered as a once a day medication) to succinate 25 mg Hypothyroid TSH still elevated May require increased dose Has been on current dose for over one year according to the patient. Will increase to 50 mcg po daily Recheck TSH in 2-3 weeks H/O TIA as per notes URI Improved symptoms Constipation Miralax as needed Insomnia Hold off on further Rx for now H/O Lung nodule noted from office records according to her PCP CXR reviewed May require outpatient CT for completeness Disposition May require SNF/Rehab if unable to return home. Social service input to consider APS for placement
[2017-10-31] MEDS: traMADol HCL 50 MG TABLET PO PRN ×2 (10:02→17:02)
[2017-10-31] MEDS: guaiFENesin/D-METHORPHAN HB 10 ML UNIT-DOSE CUPS PO PRN ×3 (10:05→21:44)
[2017-10-31] MEDS: RANITIDINE HCL 150 MG TABLET (FP) PO SCH (10:43)
[2017-10-31] MEDS: METOPROLOL SUCCINATE 25 MG TAB.SR.24H (FP) PO SCH (10:43)
[2017-10-31] MEDS: CYCLOBENZAPRINE HCL 10 MG TABLET (FP) PO SCH (10:43)
[2017-10-31] MEDS: LACTOBACILLUS ACIDOPHILUS 1 EACH TAB (FP) PO SCH (10:43)
[2017-10-31] MEDS: HEPARIN NA (PORCINE) 5,000 UNITS/ML 1ML VIAL SQ SCH ×2 (10:44→21:46)
[2017-10-31] MEDS: ACETAMINOPHEN 325 MG TABLET (FP) PO PRN (21:44)
[2017-10-31] MEDS: ATORVASTATIN CA 20 MG TABLET (FP) PO SCH (21:46)
[2017-10-31] MEDS: MONTELUKAST NA 10 MG TABLET PO SCH (21:46)
[2017-11-01] MEDS: LEVOTHYROXINE NA 50 MCG TABLET (FP) PO SCH (06:34)
--- NOTE | 2017-11-01 08:57 | PN ---
Progress Note (short form) - Note Progress Note: Patient seen and examined Chart reviewed Currently sitting up in bed, alert and appropriate. Did not tolerate gabapentin. Dr Gomez's note appreciated. Persistence of bilateral knee pain which limits her ambulatory capacity. Stable low back discomfort. Describes improved nasal and respiratory congestion, previously having taken the inhalers and cough suppressant. Labs and notes reviewed. Patient will ultimately require TKRs according to Dr Mccarthy' s note. Has previously been to rehab and is reluctant to return to a Nursing facility, although she may not have coverage days available Describes difficulty at her apartment, which she claims is currently uninhabitable. Social Service intervention ongoing. May need to be discharged with input for APS. PT notes reviewed. Still required close contact guarding of one for transfers and ambulation with rolling walker. Was able to walk 25 feet twice, tolerating FWB. Notes some sleep disturbance Dr De Los Santos's note reviewed in regard to pain management. CXR read as clear, with no active disease No nodule noted, although a CT scan would be more definitive in this regard. Selected Entries 10/31/17 10/31/17 21:00 23:51 Temperature 97.8 F Pulse Rate 75 Respiratory 18 Rate Blood Pressure 117/56 O2 Sat by Pulse 98 Oximetry (%) Oxygen Delivery Room Air Method Chest Clear Cor RRR Abd Soft non-tender Ext No evidence of phlebitis No edema Diffuse degenerative joint disease Neuro No new focal deficits Alert and appropriate Assessment and Plan Knee pain Did not tolerate gabapentin May need to be home for 60 days before returning for elective TKR surgery, based on Medicare rules. Low back pain Stable HPL HTN Changed metoprolol tartrate (ordered as a once a day medication) to succinate 25 mg Hypothyroid TSH still elevated May require increased dose Has been on current dose for over one year according to the patient. Will increase to 50 mcg po daily Recheck TSH in 2-3 weeks H/O TIA as per notes URI Improved symptoms Constipation Miralax as needed Insomnia Hold off on further Rx for now H/O Lung nodule noted from office records according to her PCP CXR reviewed May require outpatient CT for completeness Disposition May require SNF/Rehab if unable to return home. Social service input to consider APS for placement
[2017-11-01] MEDS: METOPROLOL SUCCINATE 25 MG TAB.SR.24H (FP) PO SCH (11:37)
[2017-11-01] MEDS: LACTOBACILLUS ACIDOPHILUS 1 EACH TAB (FP) PO SCH (11:37)
[2017-11-01] MEDS: HEPARIN NA (PORCINE) 5,000 UNITS/ML 1ML VIAL SQ SCH ×3 (11:38→22:05)
[2017-11-01] MEDS: CYCLOBENZAPRINE HCL 10 MG TABLET (FP) PO SCH (11:38)
[2017-11-01] MEDS: RANITIDINE HCL 150 MG TABLET (FP) PO SCH (11:38)
[2017-11-01] MEDS ORDERED: PT OWN MED DRAWER 7, Y5N ONE ×3 (12:14→22:16)
[2017-11-01] MEDS: guaiFENesin/D-METHORPHAN HB 10 ML UNIT-DOSE CUPS PO PRN ×2 (12:18→18:48)
[2017-11-01] MEDS: traMADol HCL 50 MG TABLET PO PRN ×2 (12:18→20:12)
[2017-11-01] MEDS: FLUTICASONE PROP 0.05% 16 GM NASAL SPRAY NS PRN ×3 (12:19→22:17)
[2017-11-01] MEDS: ACETAMINOPHEN 325 MG TABLET (FP) PO PRN (22:06)
[2017-11-01] MEDS: MONTELUKAST NA 10 MG TABLET PO SCH (22:06)
[2017-11-01] MEDS: ATORVASTATIN CA 20 MG TABLET (FP) PO SCH (22:06)
[2017-11-02] MEDS: LEVOTHYROXINE NA 50 MCG TABLET (FP) PO SCH (06:50)
[2017-11-02] MEDS: traMADol HCL 50 MG TABLET PO PRN ×2 (07:07→15:13)
[2017-11-02] MEDS: guaiFENesin/D-METHORPHAN HB 10 ML UNIT-DOSE CUPS PO PRN ×3 (07:35→21:58)
--- NOTE | 2017-11-02 09:17 | PN ---
Progress Note (short form) - Note Progress Note: Patient seen and examined Chart reviewed Currently sitting up in bed, alert and appropriate. Persistence of bilateral knee pain which limits her ambulatory capacity. Stable low back discomfort. Describes improved nasal and respiratory congestion, previously having taken the inhalers and cough suppressant. Labs and notes reviewed. Patient will ultimately require TKRs according to Dr Mccarthy's note. Has previously been to rehab and is reluctant to return to a Nursing facility, although she may not have coverage days available Describes difficulty at her apartment, which she claims is currently uninhabitable. Social Service intervention ongoing. May need to be discharged with input for APS. PT notes reviewed. Not seen by PT yesterday. Still required close contact guarding of one for transfers and ambulation with rolling walker. Was able to walk 25 feet twice, tolerating FWB. Notes some sleep disturbance Dr De Los Santos's note reviewed in regard to pain management. CXR read as clear, with no active disease No nodule noted, although a CT scan would be more definitive in this regard. Social service intervention ongoing. Refused vital signs at times yesterday. Selected Entries 10/31/17 11/01/17 11/01/17 23:51 21:00 22:00 Temperature 97.8 F Pulse Rate 68 Respiratory 20 Rate Blood Pressure 112/62 O2 Sat by Pulse 94 L Oximetry (%) Oxygen Delivery Room Air Method Chest Clear Cor RRR Abd Soft non-tender Ext No evidence of phlebitis No edema Diffuse degenerative joint disease Neuro No new focal deficits Alert and appropriate Assessment and Plan Knee pain Did not tolerate gabapentin May need to be home for 60 days before returning for elective TKR surgery, based on Medicare rules. Low back pain Stable HPL HTN Changed metoprolol tartrate (ordered as a once a day medication) to succinate 25 mg Hypothyroid TSH still elevated May require increased dose Has been on current dose for over one year according to the patient. Will increase to 50 mcg po daily Recheck TSH in 2-3 weeks H/O TIA as per notes URI Improved symptoms Constipation Miralax as needed Insomnia Hold off on further Rx for now H/O Lung nodule noted from office records according to her PCP CXR reviewed May require outpatient CT for completeness Disposition May require SNF/Rehab if unable to return home. Social service input to consider APS for placement
[2017-11-02] MEDS: RANITIDINE HCL 150 MG TABLET (FP) PO SCH (09:21)
[2017-11-02] MEDS: METOPROLOL SUCCINATE 25 MG TAB.SR.24H (FP) PO SCH (09:21)
[2017-11-02] MEDS: LACTOBACILLUS ACIDOPHILUS 1 EACH TAB (FP) PO SCH (09:21)
[2017-11-02] MEDS: CYCLOBENZAPRINE HCL 10 MG TABLET (FP) PO SCH (09:21)
[2017-11-02] MEDS: HEPARIN NA (PORCINE) 5,000 UNITS/ML 1ML VIAL SQ SCH ×2 (09:22→21:58)
[2017-11-02] MEDS: POLYETHYLENE GLYCOL 3350 119 GM BTL PO PRN (21:58)
[2017-11-02] MEDS: MONTELUKAST NA 10 MG TABLET PO SCH (21:58)
[2017-11-02] MEDS: ATORVASTATIN CA 20 MG TABLET (FP) PO SCH (21:58)
[2017-11-02] MEDS: ACETAMINOPHEN 325 MG TABLET (FP) PO PRN (21:58)
[2017-11-03] MEDS: LEVOTHYROXINE NA 50 MCG TABLET (FP) PO SCH (06:21)
--- NOTE | 2017-11-03 09:02 | PN ---
Progress Note (short form) - Note Progress Note: Patient seen and examined Chart reviewed Currently sitting up in bed, alert and appropriate. Persistence of bilateral knee pain which limits her ambulatory capacity. Stable low back discomfort. Describes improved nasal and respiratory congestion, previously having taken the inhalers and cough suppressant. Labs and notes reviewed. Patient will ultimately require TKRs according to Dr Mccarthy's note. Has previously been to rehab and is reluctant to return to a Nursing facility, although she may not have coverage days available Describes difficulty at her apartment, which she claims is currently uninhabitable. Social Service intervention ongoing. May need to be discharged with input for APS. PT notes reviewed. Still required close contact guarding of one for transfers and ambulation with rolling walker, but is now able to walk 50 feet twice, tolerating FWB. Has concern for left thumb discomfort. Notes some sleep disturbance and does not tolerate Trazodone. Dr De Los Santos's note reviewed in regard to pain management. Previous CXR read as clear, with no active disease No nodule noted, although a CT scan would be more definitive in this regard. Social service intervention ongoing. Refused vital signs at times yesterday. Selected Entries 11/02/17 11/02/17 19:00 21:00 Temperature 98.2 F Pulse Rate 68 Respiratory 20 Rate Blood Pressure 138/66 O2 Sat by Pulse 94 L Oximetry (%) Oxygen Delivery Room Air Method Chest Clear Cor RRR Abd Soft non-tender Ext No evidence of phlebitis No edema Diffuse degenerative joint disease evidence of joint deformity left thumb base MCP joint Neuro No new focal deficits Alert and appropriate Assessment and Plan Knee pain Did not tolerate gabapentin May need to be home for 60 days before returning for elective TKR surgery, based on Medicare rules. Low back pain Stable HPL HTN Changed metoprolol tartrate (ordered as a once a day medication) to succinate 25 mg Hypothyroid TSH still elevated May require increased dose Has been on current dose for over one year according to the patient. Will increase to 50 mcg po daily Recheck TSH in 2-3 weeks H/O TIA as per notes URI Improved symptoms Constipation Miralax as needed Insomnia Hold off on further Rx for now Had previously been prescribed Trazodone, but is intolerant of this H/O Lung nodule noted from office records according to her PCP CXR reviewed May require outpatient CT for completeness Left thumb joint deformity Will ask for orthopedic assessment Disposition May require SNF/Rehab if unable to return home. Social service input to consider APS for placement
[2017-11-03] MEDS: LACTOBACILLUS ACIDOPHILUS 1 EACH TAB (FP) PO SCH (11:23)
[2017-11-03] MEDS: ACETAMINOPHEN 325 MG TABLET (FP) PO PRN ×2 (11:23→21:24)
[2017-11-03] MEDS: CYCLOBENZAPRINE HCL 10 MG TABLET (FP) PO SCH (11:25)
[2017-11-03] MEDS: METOPROLOL SUCCINATE 25 MG TAB.SR.24H (FP) PO SCH (11:25)
[2017-11-03] MEDS: RANITIDINE HCL 150 MG TABLET (FP) PO SCH (11:25)
[2017-11-03] MEDS: guaiFENesin/D-METHORPHAN HB 10 ML UNIT-DOSE CUPS PO PRN ×3 (11:26→21:23)
[2017-11-03] MEDS: HEPARIN NA (PORCINE) 5,000 UNITS/ML 1ML VIAL SQ SCH ×2 (11:26→21:25)
--- NOTE | 2017-11-03 15:22 | CON.ORTH ---
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 Cardio/Vascular: Yes: HTN, Hyperlipdemia Gastrointestinal: Yes: Diverticulosis Musculoskeletal: Yes: Osteoarthritis Endocrine: Yes: Hypothyroidism - Alcohol/Substance Use Hx Alcohol Use: No History of Substance Use: reports: None - Smoking History Smoking history: Never smoked Have you smoked in the past 12 months: No - Social History History of Recent Travel: No Home Medications - Allergies Allergies/Adverse Reactions: Allergies Allergy/AdvReac Type Severity Reaction Status Date / Time Penicillins Allergy Severe Swelling Verified 10/14/17 10:52 gabapentin AdvReac Severe Verified 10/27/17 20:37 milk AdvReac Verified 10/14/17 10:52 - Home Medications Home Medications: Ambulatory Orders Alendronate Na [Fosamax (Weekly)] 70 mg PO Q7D 10/10/17 Atorvastatin Ca [Lipitor] 20 mg NR DAILY 10/10/17 Famotidine 10 mg PO DAILY 10/10/17 Levothyroxine [Synthroid -] 25 mcg PO DAILY 10/10/17 Metoprolol Tartrate 25 mg PO DAILY 10/10/17 Mometasone Furoate 50 mcg PO BID 10/10/17 Montelukast Na [Singulair -] 10 mg PO DAILY 10/10/17 Omeprazole 10 mg PO DAILY 10/10/17 Cyclobenzaprine HCl 5 mg PO DAILY #30 tablet 10/13/17 Lactobacillus Acidophilus [Bacid -] 1 tab PO DAILY #7 tab 10/13/17 Physical Exam for Ortho Vital Signs: Vital Signs Temperature 97.9 F 11/03/17 11:00 Pulse Rate 74 11/03/17 11:00 Respiratory Rate 18 11/03/17 11:00 Blood Pressure 118/76 11/03/17 11:00 O2 Sat by Pulse Oximetry (%) 94 L 11/03/17 11:00 Labs: CBC, BMP 10/18/17 07:15 10/18/17 07:15 - Upper Extremity Hand: Yes: Left, Deformity, Pain, Other (+ chronic deformity of MP joint, minimal swelling, good ROM, nvi) Imaging - Results X-ray: Image Reviewed Assessment/Plan 77 yrs old F with chronic back pain poor gait and stance H/O HTN, dyslipedemia, gait in stability. Approximately 3 days ago pts left thumb accidentally injured during as transfer. Has h/o chronic deformity in left thumb MP joint as seen as previous xrays. a/p left thumb MP joint sprain, chronic deformity xrays of left hand thumb spica splint ordered will follow d/w Dr. Gomez
[2017-11-03] MEDS: traMADol HCL 50 MG TABLET PO PRN (16:19)
[2017-11-03] MEDS: MONTELUKAST NA 10 MG TABLET PO SCH (21:25)
[2017-11-03] MEDS: ATORVASTATIN CA 20 MG TABLET (FP) PO SCH (21:25)
[2017-11-04] MEDS: LEVOTHYROXINE NA 50 MCG TABLET (FP) PO SCH (06:14)
[2017-11-04] MEDS: traMADol HCL 50 MG TABLET PO PRN (09:59)
[2017-11-04] MEDS: guaiFENesin/D-METHORPHAN HB 10 ML UNIT-DOSE CUPS PO PRN ×2 (09:59→16:53)
--- NOTE | 2017-11-04 10:12 | PN ---
Physical Exam: SUBJECTIVE: Patient seen and examined at bedside. Pt reports left thumb and wrist pain is slowly improving, denies cp,sob, palpitations, abdominal pain, N/V/D. OBJECTIVE: Vital Signs Period Temp Pulse Resp BP Sys/Zurita Pulse Ox Last 24 Hr 97.1 F-97.9 F 74 18-18 118/76 94-94 GENERAL: The patient is awake, alert, and fully oriented, in no acute distress. HEAD: Normal with no signs of trauma. EYES: PERRL, extraocular movements intact, sclera anicteric, conjunctiva clear. No ptosis. ENT: Ears normal, nares patent, oropharynx clear without exudates, moist mucous membranes. NECK: Trachea midline, full range of motion, supple. LUNGS: Breath sounds equal, clear to auscultation bilaterally, no wheezes, no crackles, no accessory muscle use. HEART: Regular rate and rhythm, S1, S2 without murmur, rub or gallop. ABDOMEN: Soft, nontender, nondistended, normoactive bowel sounds, no guarding, no rebound, no hepatosplenomegaly, no masses. EXTREMITIES: 2+ pulses, warm, well-perfused, no edema., bilateral knee tenderness( chronic)and lower ext weakness, Left hand in a splint NEUROLOGICAL: Cranial nerves II through XII grossly intact. Normal speech, gait not observed. PSYCH: Normal mood, normal affect. SKIN: Warm, dry, normal turgor, no rashes or lesions noted Active Medications Generic Name Dose Route Start Last Admin Trade Name Freq PRN Reason Stop Dose Admin Acetaminophen 650 mg 10/17/17 00:20 11/03/17 21:24 Tylenol - PO 650 mg Q6H PRN Administration FEVER OR PAIN Albuterol Sulfate 2 puff 10/15/17 16:35 Ventolin Hfa Inhaler - IH Q6H PRN SHORTNESS OF BREATH Atorvastatin Calcium 20 mg 10/14/17 22:00 11/03/17 21:25 Lipitor - PO 20 mg HS ERNESTO Administration Cyclobenzaprine HCl 5 mg 10/15/17 10:00 11/03/17 11:25 Flexeril - PO 5 mg DAILY ERNESTO Administration Fluticasone Propionate 1 spray 10/21/17 23:57 11/01/17 22:17 Flonase - NS 1 spray BID PRN Administration ALLERGIES Guaifenesin 10 ml 10/21/17 10:49 11/04/17 09:59 Robitussin Dm - PO 10 ml Q4H PRN Administration COUGH Heparin Sodium (Porcine) 5,000 unit 11/03/17 10:00 11/03/17 21:25 Heparin - SQ Not Given BID ERNESTO Lactobacillus Acidophilus 1 tab 10/15/17 10:00 11/03/17 11:23 Bacid - PO 1 tab DAILY ERNESTO Administration Levothyroxine Sodium 50 mcg 10/26/17 07:00 11/04/17 06:14 Synthroid - PO 50 mcg DAILY@0700 ERNESTO Administration Metoprolol Succinate 25 mg 10/31/17 10:00 11/03/17 11:25 Toprol Xl - PO 25 mg DAILY ERNESTO Administration Montelukast Sodium 10 mg 10/14/17 22:00 11/03/17 21:25 Singulair - PO 10 mg HS ERNESTO Administration Polyethylene Glycol 17 gm 10/22/17 09:25 11/02/17 21:58 Miralax (For Daily Use) - PO 17 grams DAILY PRN Administration CONSTIPATION Ranitidine HCl 150 mg 10/15/17 10:00 11/03/17 11:25 Zantac - PO 150 mg DAILY ERNESTO Administration Tramadol HCl 50 mg 11/02/17 12:35 11/04/17 09:59 Ultram - PO 50 mg Q8H PRN Administration Left Hand X'Ray - Reviewed, no acute fracture, DJD CT scan Lumboscaral spine un remarkable, A/P This is a77 yrs old F with chronic back pain poor gait and stance H/O HTN, dyslipedemia, gait in stability, who presents with left thumb pain,accidentally injured during the transfer. *left thumb MP joint sprain, chronic deformity - acute fracture ruled out - ortho following - Lt hand in a spica splint *Back pain- stable -continue PT -continue tramadol *Bilateral knee pain - cont PT - pain management -unable to thien Gabapentin, - may need elective TKR surgery *HLD -continue statin * HTN - BP stable -continue metoprolol *Hypothyroid -elevated TSH level -will cont on increased synthroid dose -out pt f/u on TSH level * Constipation - will cont on Laxative *H/O Lung nodule n - May require outpatient CT for completeness * Dispo: Pending, may require SNF if unable to return home. Social service input to consider APS for placement Visit type - Emergency Visit Emergency Visit: Yes ED Registration Date: 10/14/17 Care time: The patient presented to the Emergency Department on the above date and was hospitalized for further evaluation of their emergent condition. - New Patient This patient is new to me today: Yes Date on this admission: 11/04/17 - Critical Care Critical Care patient: No
[2017-11-04] MEDS: LACTOBACILLUS ACIDOPHILUS 1 EACH TAB (FP) PO SCH (11:25)
[2017-11-04] MEDS: METOPROLOL SUCCINATE 25 MG TAB.SR.24H (FP) PO SCH (11:25)
[2017-11-04] MEDS: CYCLOBENZAPRINE HCL 10 MG TABLET (FP) PO SCH (11:25)
[2017-11-04] MEDS: RANITIDINE HCL 150 MG TABLET (FP) PO SCH (11:25)
[2017-11-04] MEDS: HEPARIN NA (PORCINE) 5,000 UNITS/ML 1ML VIAL SQ SCH ×2 (11:26→21:49)
[2017-11-04] MEDS: ALBUTEROL SO4 18 GM HFA INHALER IH PRN (11:27)
--- NOTE | 2017-11-04 14:04 | PN ---
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 Mccarthy
[2017-11-04] MEDS: MONTELUKAST NA 10 MG TABLET PO SCH (21:49)
[2017-11-04] MEDS: ATORVASTATIN CA 20 MG TABLET (FP) PO SCH (21:49)
[2017-11-04] MEDS: ACETAMINOPHEN 325 MG TABLET (FP) PO PRN (23:25)
[2017-11-05] MEDS: LEVOTHYROXINE NA 50 MCG TABLET (FP) PO SCH (06:42)
[2017-11-05] MEDS: CYCLOBENZAPRINE HCL 10 MG TABLET (FP) PO SCH (10:47)
[2017-11-05] MEDS: METOPROLOL SUCCINATE 25 MG TAB.SR.24H (FP) PO SCH (10:47)
[2017-11-05] MEDS: RANITIDINE HCL 150 MG TABLET (FP) PO SCH (10:47)
[2017-11-05] MEDS: LACTOBACILLUS ACIDOPHILUS 1 EACH TAB (FP) PO SCH (10:47)
--- NOTE | 2017-11-05 10:48 | PN ---
Physical Exam: SUBJECTIVE: Patient seen and examined. Lying in bed with towel over her head watching television. Voices no complaints other than wanting to see a case making machine operator about getting her apartment cleaned. OBJECTIVE: Vital Signs Period Temp Pulse Resp BP Sys/Zurita Pulse Ox Last 24 Hr 97.7 F-98.7 F 68-72 18-18 106-112/54-73 Patient declined physical exam. Active Medications Generic Name Dose Route Start Last Admin Trade Name Freq PRN Reason Stop Dose Admin Acetaminophen 650 mg 10/17/17 00:20 11/04/17 23:25 Tylenol - PO 650 mg Q6H PRN Administration FEVER OR PAIN Albuterol Sulfate 2 puff 10/15/17 16:35 11/04/17 11:27 Ventolin Hfa Inhaler - IH 2 puff Q6H PRN Administration SHORTNESS OF BREATH Atorvastatin Calcium 20 mg 10/14/17 22:00 11/04/17 21:49 Lipitor - PO 20 mg HS ERNESTO Administration Cyclobenzaprine HCl 5 mg 10/15/17 10:00 11/04/17 11:25 Flexeril - PO 5 mg DAILY ERNESTO Administration Fluticasone Propionate 1 spray 10/21/17 23:57 11/01/17 22:17 Flonase - NS 1 spray BID PRN Administration ALLERGIES Guaifenesin 10 ml 10/21/17 10:49 11/04/17 16:53 Robitussin Dm - PO 10 ml Q4H PRN Administration COUGH Heparin Sodium (Porcine) 5,000 unit 11/03/17 10:00 11/04/17 21:49 Heparin - SQ 5,000 unit BID ERNESTO Administration Lactobacillus Acidophilus 1 tab 10/15/17 10:00 11/04/17 11:25 Bacid - PO 1 tab DAILY ERNESTO Administration Levothyroxine Sodium 50 mcg 10/26/17 07:00 11/05/17 06:42 Synthroid - PO 50 mcg DAILY@0700 ERNESTO Administration Metoprolol Succinate 25 mg 10/31/17 10:00 11/04/17 11:25 Toprol Xl - PO 25 mg DAILY ERNESTO Administration Montelukast Sodium 10 mg 10/14/17 22:00 11/04/17 21:49 Singulair - PO 10 mg HS ERNESTO Administration Polyethylene Glycol 17 gm 10/22/17 09:25 11/02/17 21:58 Miralax (For Daily Use) - PO 17 grams DAILY PRN Administration CONSTIPATION Ranitidine HCl 150 mg 10/15/17 10:00 11/04/17 11:25 Zantac - PO 150 mg DAILY ERNESTO Administration Tramadol HCl 50 mg 11/02/17 12:35 11/04/17 09:59 Ultram - PO 50 mg Q8H PRN Administration ASSESSMENT/PLAN Hospital day #22. No change in current management. Visit type - Emergency Visit Emergency Visit: Yes ED Registration Date: 10/14/17 Care time: The patient presented to the Emergency Department on the above date and was hospitalized for further evaluation of their emergent condition. - New Patient This patient is new to me today: Yes Date on this admission: 11/05/17 - Critical Care Critical Care patient: No
[2017-11-05] MEDS: traMADol HCL 50 MG TABLET PO PRN (10:52)
[2017-11-05] MEDS: guaiFENesin/D-METHORPHAN HB 10 ML UNIT-DOSE CUPS PO PRN ×3 (10:52→21:55)
[2017-11-05] MEDS: ALBUTEROL SO4 18 GM HFA INHALER IH PRN (10:57)
[2017-11-05] MEDS ORDERED: PT OWN MED DRAWER 7, Y5N ONE (10:58)
[2017-11-05] MEDS: HEPARIN NA (PORCINE) 5,000 UNITS/ML 1ML VIAL SQ SCH ×2 (11:04→21:49)
[2017-11-05] MEDS: MONTELUKAST NA 10 MG TABLET PO SCH (21:49)
[2017-11-05] MEDS: ATORVASTATIN CA 20 MG TABLET (FP) PO SCH (21:50)
[2017-11-05] MEDS: ACETAMINOPHEN 325 MG TABLET (FP) PO PRN (21:55)
[2017-11-05] MEDS: FLUTICASONE PROP 0.05% 16 GM NASAL SPRAY NS PRN (21:58)
[2017-11-06] MEDS: LEVOTHYROXINE NA 50 MCG TABLET (FP) PO SCH (06:40)
[2017-11-06] MEDS: traMADol HCL 50 MG TABLET PO PRN ×2 (08:35→18:38)
[2017-11-06] MEDS: guaiFENesin/D-METHORPHAN HB 10 ML UNIT-DOSE CUPS PO PRN ×3 (08:35→22:42)
--- NOTE | 2017-11-06 09:21 | PN ---
Progress Note (short form) - Note Progress Note: Patient seen and examined Chart reviewed Currently sitting up in bed, alert and appropriate. Persistence of bilateral knee pain which limits her ambulatory capacity. Stable low back discomfort. Describes improved nasal and respiratory congestion, previously having taken the inhalers and cough suppressant. Labs and notes reviewed. Patient will ultimately require TKRs according to Dr Mccarthy's note. Has previously been to rehab and is reluctant to return to a Nursing facility, although she may not have coverage days available Describes difficulty at her apartment, which she claims is currently uninhabitable. Social Service intervention ongoing. May need to be discharged with input from APS. PT notes reviewed. Still required close contact guarding of one for transfers and ambulation with rolling walker, but is now able to walk 40 feet three times, tolerating FWB. Left thumb discomfort evaluated by orthopedic service with x-ray assessment. Notes some sleep disturbance and does not tolerate Trazodone. Dr De Los Santos's note reviewed in regard to pain management. Previous CXR read as clear, with no active disease No nodule noted , although a CT scan would be more definitive in this regard. Social service intervention ongoing. Refused vital signs at times. Selected Entries 11/05/17 11/05/17 18:37 21:00 Temperature 97.9 F Pulse Rate 63 Respiratory 20 Rate Blood Pressure 119/62 Chest Clear Cor RRR Abd Soft non-tender Ext No evidence of phlebitis No edema Diffuse degenerative joint disease evidence of joint deformity left thumb base MCP joint Neuro No new focal deficits Alert and appropriate Assessment and Plan Knee pain Did not tolerate gabapentin May need to be home for 60 days before returning for elective TKR surgery, based on Medicare rules. Low back pain Stable HPL HTN Changed metoprolol tartrate (ordered as a once a day medication) to succinate 25 mg Hypothyroid TSH still elevated May require increased dose Has been on current dose for over one year according to the patient. Will increase to 50 mcg po daily Recheck TSH in 2-3 weeks H/O TIA as per notes URI Improved symptoms Constipation Miralax as needed Insomnia Hold off on further Rx for now Had previously been prescribed Trazodone, but is intolerant of this H/O Lung nodule noted from office records according to her PCP CXR reviewed May require outpatient CT for completeness Left thumb joint deformity Orthopedic assessment appreciated Splint in place Disposition May require SNF/Rehab if unable to return home. Social service input to consider APS for placement
[2017-11-06] MEDS: LACTOBACILLUS ACIDOPHILUS 1 EACH TAB (FP) PO SCH (10:21)
[2017-11-06] MEDS: CYCLOBENZAPRINE HCL 10 MG TABLET (FP) PO SCH (10:22)
[2017-11-06] MEDS: METOPROLOL SUCCINATE 25 MG TAB.SR.24H (FP) PO SCH (10:22)
[2017-11-06] MEDS: RANITIDINE HCL 150 MG TABLET (FP) PO SCH (10:22)
[2017-11-06] MEDS: HEPARIN NA (PORCINE) 5,000 UNITS/ML 1ML VIAL SQ SCH ×2 (10:27→22:43)
[2017-11-06] MEDS: ACETAMINOPHEN 325 MG TABLET (FP) PO PRN (22:42)
[2017-11-06] MEDS: ATORVASTATIN CA 20 MG TABLET (FP) PO SCH (22:43)
[2017-11-06] MEDS: MONTELUKAST NA 10 MG TABLET PO SCH (22:43)
[2017-11-06] MEDS: ALBUTEROL SO4 18 GM HFA INHALER IH PRN (22:44)
[2017-11-07] MEDS: LEVOTHYROXINE NA 50 MCG TABLET (FP) PO SCH (06:34)
--- NOTE | 2017-11-07 08:39 | PN ---
Progress Note (short form) - Note Progress Note: Patient seen and examined Chart reviewed Currently sitting up in bed, alert and appropriate. Persistence of bilateral knee pain which limits her ambulatory capacity. Stable low back discomfort. Describes improved nasal and respiratory congestion, previously having taken the inhalers and cough suppressant. Labs and notes reviewed. Patient will ultimately require TKRs according to Dr Mccarthy's note. Has previously been to rehab and is reluctant to return to a Nursing facility, although she may not have coverage days available Describes difficulty at her apartment, which she claims is currently uninhabitable. Social Service intervention ongoing. May need to be discharged with input from APS. PT notes reviewed. Still required close contact guarding of one for transfers and ambulation with rolling walker, and was previously able to walk 40 feet three times, tolerating FWB. Claims to have not done well with yesterday's PT. Note not available. Left thumb discomfort evaluated by orthopedic service with x-ray assessment. Notes some sleep disturbance and does not tolerate Trazodone. Dr De Los Santos's note reviewed in regard to pain management. Previous CXR read as clear, with no active disease No nodule noted , although a CT scan would be more definitive in this regard. Social service intervention ongoing. Refused vital signs at times. Selected Entries 11/06/17 11/06/17 15:06 21:00 Temperature 97.5 F L Pulse Rate 63 Respiratory 20 Rate Blood Pressure 111/60 O2 Sat by Pulse 97 Oximetry (%) Oxygen Delivery Room Air Method Chest Clear Cor RRR Abd Soft non-tender Ext No evidence of phlebitis No edema Diffuse degenerative joint disease. Evidence of joint deformity left thumb base MCP joint Neuro No new focal deficits Alert and appropriate Assessment and Plan Knee pain Did not tolerate gabapentin May need to be home for 60 days before returning for elective TKR surgery, based on Medicare rules. Low back pain Stable HPL HTN Changed metoprolol tartrate (ordered as a once a day medication) to succinate 25 mg Hypothyroid TSH still elevated May require increased dose Has been on current dose for over one year according to the patient. Will increase to 50 mcg po daily Recheck TSH in 2-3 weeks H/O TIA as per notes URI Improved symptoms Constipation Miralax as needed Insomnia Hold off on further Rx for now Had previously been prescribed Trazodone, but is intolerant of this H/O Lung nodule noted from office records according to her PCP CXR reviewed May require outpatient CT for completeness Left thumb joint deformity Orthopedic assessment appreciated Splint in place Disposition May require SNF/Rehab if unable to return home. Social service input to consider APS for placement
[2017-11-07] MEDS: guaiFENesin/D-METHORPHAN HB 10 ML UNIT-DOSE CUPS PO PRN ×2 (11:17→22:10)
[2017-11-07] MEDS: HEPARIN NA (PORCINE) 5,000 UNITS/ML 1ML VIAL SQ SCH ×2 (11:18→22:04)
[2017-11-07] MEDS: ACETAMINOPHEN 325 MG TABLET (FP) PO PRN ×2 (11:18→22:09)
[2017-11-07] MEDS: CYCLOBENZAPRINE HCL 10 MG TABLET (FP) PO SCH (11:18)
[2017-11-07] MEDS: LACTOBACILLUS ACIDOPHILUS 1 EACH TAB (FP) PO SCH (11:18)
[2017-11-07] MEDS: RANITIDINE HCL 150 MG TABLET (FP) PO SCH (11:18)
[2017-11-07] MEDS: METOPROLOL SUCCINATE 25 MG TAB.SR.24H (FP) PO SCH (11:19)
[2017-11-07] MEDS: MONTELUKAST NA 10 MG TABLET PO SCH (22:05)
[2017-11-07] MEDS: ATORVASTATIN CA 20 MG TABLET (FP) PO SCH (22:05)
[2017-11-07] MEDS: FLUTICASONE PROP 0.05% 16 GM NASAL SPRAY NS PRN (22:09)
[2017-11-07] MEDS ORDERED: PT OWN MED DRAWER 7, Y5N ONE (22:14)
[2017-11-07] MEDS: ALBUTEROL SO4 18 GM HFA INHALER IH PRN (22:15)
[2017-11-08] MEDS: LEVOTHYROXINE NA 50 MCG TABLET (FP) PO SCH (06:35)
[2017-11-08] MEDS: traMADol HCL 50 MG TABLET PO PRN (08:05)
[2017-11-08] MEDS: guaiFENesin/D-METHORPHAN HB 10 ML UNIT-DOSE CUPS PO PRN ×2 (08:05→22:13)
--- NOTE | 2017-11-08 08:45 | PN ---
Progress Note (short form) - Note Progress Note: Patient seen and examined Chart reviewed Currently sitting up in bed, alert and appropriate. Persistence of bilateral knee pain which limits her ambulatory capacity. Stable low back discomfort. Describes improved nasal and respiratory congestion, previously having taken the inhalers and cough suppressant. Labs and notes reviewed. Patient will ultimately require TKRs according to Dr Mccarthy's note. Has previously been to rehab and is reluctant to return to a Nursing facility, although she may not have coverage days available Describes difficulty at her apartment, which she claims is currently uninhabitable. Social Service intervention ongoing. May need to be discharged with input from APS. PT notes reviewed. Still required close contact guarding of one for transfers and ambulation with rolling walker, and was previously able to walk 40 feet three times, tolerating FWB. Claims to have done well with yesterday's PT. Note not available. Left thumb discomfort evaluated by orthopedic service with x-ray assessment. Notes some sleep disturbance and does not tolerate Trazodone. Dr De Los Santos's note reviewed in regard to pain management. Previous CXR read as clear, with no active disease No nodule noted , although a CT scan would be more definitive in this regard. Social service intervention ongoing. Refused vital signs at times. Selected Entries 11/07/17 11/08/17 09:00 07:52 Temperature 97.5 F L Pulse Rate 64 Respiratory 20 Rate Blood Pressure 115/69 O2 Sat by Pulse 97 Oximetry (%) Oxygen Delivery Room Air Method Chest Clear Cor RRR Abd Soft non-tender Ext No evidence of phlebitis No edema Diffuse degenerative joint disease. Evidence of joint deformity left thumb base MCP joint Neuro No new focal deficits Alert and appropriate Assessment and Plan Knee pain Did not tolerate gabapentin May need to be home for 60 days before returning for elective TKR surgery, based on Medicare rules. Low back pain Stable HPL HTN Changed metoprolol tartrate (ordered as a once a day medication) to succinate 25 mg Hypothyroid TSH still elevated May require increased dose Has been on current dose for over one year according to the patient. Will increase to 50 mcg po daily Recheck TSH in 2-3 weeks H/O TIA as per notes URI Improved symptoms Constipation Miralax as needed Insomnia Hold off on further Rx for now Had previously been prescribed Trazodone, but is intolerant of this H/O Lung nodule noted from office records according to her PCP CXR reviewed May require outpatient CT for completeness Left thumb joint deformity Orthopedic assessment appreciated Splint in place Disposition May require SNF/Rehab if unable to return home. Social service input to consider APS for placement
[2017-11-08] MEDS: LACTOBACILLUS ACIDOPHILUS 1 EACH TAB (FP) PO SCH (11:18)
[2017-11-08] MEDS: HEPARIN NA (PORCINE) 5,000 UNITS/ML 1ML VIAL SQ SCH ×3 (11:18→22:13)
[2017-11-08] MEDS: RANITIDINE HCL 150 MG TABLET (FP) PO SCH (11:19)
[2017-11-08] MEDS: CYCLOBENZAPRINE HCL 10 MG TABLET (FP) PO SCH (11:19)
[2017-11-08] MEDS: METOPROLOL SUCCINATE 25 MG TAB.SR.24H (FP) PO SCH ×2 (11:20→14:44)
[2017-11-08] MEDS: POLYETHYLENE GLYCOL 3350 119 GM BTL PO PRN (11:33)
[2017-11-08] MEDS: ACETAMINOPHEN 325 MG TABLET (FP) PO PRN ×2 (14:45→22:12)
[2017-11-08] MEDS: ALBUTEROL SO4 18 GM HFA INHALER IH PRN (22:13)
[2017-11-08] MEDS: MONTELUKAST NA 10 MG TABLET PO SCH (22:13)
[2017-11-08] MEDS: ATORVASTATIN CA 20 MG TABLET (FP) PO SCH (22:13)
[2017-11-08] MEDS: FLUTICASONE PROP 0.05% 16 GM NASAL SPRAY NS PRN (22:13)
[2017-11-09] MEDS: LEVOTHYROXINE NA 50 MCG TABLET (FP) PO SCH (06:51)
[2017-11-09] MEDS: traMADol HCL 50 MG TABLET PO PRN (07:18)
[2017-11-09] MEDS: guaiFENesin/D-METHORPHAN HB 10 ML UNIT-DOSE CUPS PO PRN ×2 (07:18→22:57)
--- NOTE | 2017-11-09 08:46 | PN ---
Progress Note (short form) - Note Progress Note: Patient seen and examined Chart reviewed Currently sitting up in bed, alert and appropriate. Room changed as documented in nurse's note. Persistence of bilateral knee pain which limits her ambulatory capacity. Stable low back discomfort. Describes improved nasal and respiratory congestion, previously having taken the inhalers and cough suppressant. Labs and notes reviewed. Patient will ultimately require TKRs according to Dr Mccarthy's note. Has previously been to rehab and is reluctant to return to a Nursing facility, although she may not have coverage days available Describes difficulty at her apartment, which she claims is currently uninhabitable. Social Service intervention ongoing. May need to be discharged with input from APS. PT notes reviewed. Still required close contact guarding of one for transfers and ambulation with rolling walker, and was previously able to walk 50 feet three times, tolerating FWB . Left thumb discomfort evaluated by orthopedic service with x-ray assessment. Notes some sleep disturbance and does not tolerate Trazodone. Dr De Los Santos's note reviewed in regard to pain management. Previous CXR read as clear, with no active disease No nodule noted, although a CT scan would be more definitive in this regard. Social service intervention ongoing. Refused vital signs at times. Selected Entries 11/08/17 11/08/17 11:00 19:00 Temperature 98.0 F Pulse Rate 62 Respiratory 20 Rate Blood Pressure 124/59 O2 Sat by Pulse 98 Oximetry (%) Oxygen Delivery Room Air Method Chest Clear Cor RRR Abd Soft non-tender Ext No evidence of phlebitis No edema Diffuse degenerative joint disease. Evidence of joint deformity left thumb base MCP joint Neuro No new focal deficits Alert and appropriate Assessment and Plan Knee pain Did not tolerate gabapentin May need to be home for 60 days before returning for elective TKR surgery, based on Medicare rules. Low back pain Stable HPL HTN Changed metoprolol tartrate (ordered as a once a day medication) to succinate 25 mg Hypothyroid TSH still elevated May require increased dose Has been on current dose for over one year according to the patient. Will increase to 50 mcg po daily Recheck TSH in 2-3 weeks H/O TIA as per notes URI Improved symptoms Constipation Miralax as needed Insomnia Hold off on further Rx for now Had previously been prescribed Trazodone, but is intolerant of this H/O Lung nodule noted from office records according to her PCP CXR reviewed May require outpatient CT for completeness Left thumb joint deformity Orthopedic assessment appreciated Splint in place Urinary incontinence Persistent, noted by nurses Disposition May require SNF/Rehab if unable to return home. Social service input to consider APS for placement
[2017-11-09] MEDS: CYCLOBENZAPRINE HCL 10 MG TABLET (FP) PO SCH (10:45)
[2017-11-09] MEDS: LACTOBACILLUS ACIDOPHILUS 1 EACH TAB (FP) PO SCH (10:45)
[2017-11-09] MEDS: RANITIDINE HCL 150 MG TABLET (FP) PO SCH (10:45)
[2017-11-09] MEDS: METOPROLOL SUCCINATE 25 MG TAB.SR.24H (FP) PO SCH (10:59)
[2017-11-09] MEDS: HEPARIN NA (PORCINE) 5,000 UNITS/ML 1ML VIAL SQ SCH ×2 (11:01→22:55)
[2017-11-09] MEDS ORDERED: PT OWN MED DRAWER 7, Y5N ONE (22:53)
[2017-11-09] MEDS: ACETAMINOPHEN 325 MG TABLET (FP) PO PRN (22:54)
[2017-11-09] MEDS: MONTELUKAST NA 10 MG TABLET PO SCH (22:57)
[2017-11-09] MEDS: ATORVASTATIN CA 20 MG TABLET (FP) PO SCH (22:57)
[2017-11-09] MEDS: ALBUTEROL SO4 18 GM HFA INHALER IH PRN (22:57)
[2017-11-09] MEDS: FLUTICASONE PROP 0.05% 16 GM NASAL SPRAY NS PRN (22:58)
[2017-11-10] MEDS: LEVOTHYROXINE NA 50 MCG TABLET (FP) PO SCH (06:39)
[2017-11-10] MEDS: ACETAMINOPHEN 325 MG TABLET (FP) PO PRN ×2 (06:41→22:11)
[2017-11-10] MEDS: guaiFENesin/D-METHORPHAN HB 10 ML UNIT-DOSE CUPS PO PRN ×2 (06:42→22:10)
--- NOTE | 2017-11-10 09:09 | PN ---
Progress Note (short form) - Note Progress Note: Patient seen and examined Chart reviewed Currently sitting up in bed, alert and appropriate. Room changed as documented in previous nurse's note. Persistence of bilateral knee pain which limits her ambulatory capacity. Stable low back discomfort. Describes improved nasal and respiratory congestion, previously having taken the inhalers and cough suppressant. Labs and notes reviewed. Patient will ultimately require TKRs according to Dr Mccarthy's note. Has previously been to rehab and is reluctant to return to a Nursing facility, although she may not have coverage days available Describes difficulty at her apartment, which she claims is currently uninhabitable. Social Service intervention ongoing. May need to be discharged with input from APS. PT notes reviewed. Still required close contact guarding of one for transfers and ambulation with rolling walker, and was previously able to walk 50 feet three times, tolerating FWB . Left thumb discomfort evaluated by orthopedic service with x-ray assessment. Notes some sleep disturbance and does not tolerate Trazodone. Dr De Los Santos's note reviewed in regard to pain management. Previous CXR read as clear, with no active disease No nodule noted, although a CT scan would be more definitive in this regard. Social service intervention ongoing. Refused vital signs at times. Selected Entries 11/09/17 11/10/17 21:00 07:30 Temperature 97.9 F Pulse Rate 67 Respiratory 20 Rate Blood Pressure 127/63 O2 Sat by Pulse 93 L Oximetry (%) Oxygen Delivery Room Air Method Chest Clear Cor RRR Abd Soft non-tender Ext No evidence of phlebitis No edema Diffuse degenerative joint disease. Evidence of joint deformity left thumb base MCP joint Neuro No new focal deficits Alert and appropriate Assessment and Plan Knee pain Did not tolerate gabapentin May need to be home for 60 days before returning for elective TKR surgery, based on Medicare rules. Low back pain Stable HPL HTN Changed metoprolol tartrate (ordered as a once a day medication) to succinate 25 mg Hypothyroid TSH still elevated May require increased dose Has been on current dose for over one year according to the patient. Will increase to 50 mcg po daily Recheck TSH in 2-3 weeks H/O TIA as per notes URI Improved symptoms Constipation Miralax as needed Insomnia Hold off on further Rx for now Had previously been prescribed Trazodone, but is intolerant of this H/O Lung nodule noted from office records according to her PCP CXR reviewed May require outpatient CT for completeness Left thumb joint deformity Orthopedic assessment appreciated Splint in place Urinary incontinence Persistent, noted by nurses Disposition May require SNF/Rehab if unable to return home. Social service input to consider APS for placement. Efforts to have apartment cleaned in order to allow her to return there. Multiple issues complicate this plan. Administrative plan pending
[2017-11-10] MEDS: FLUTICASONE PROP 0.05% 16 GM NASAL SPRAY NS PRN ×2 (09:53→22:11)
[2017-11-10] MEDS: CYCLOBENZAPRINE HCL 10 MG TABLET (FP) PO SCH (09:56)
[2017-11-10] MEDS: RANITIDINE HCL 150 MG TABLET (FP) PO SCH (09:57)
[2017-11-10] MEDS: METOPROLOL SUCCINATE 25 MG TAB.SR.24H (FP) PO SCH (09:57)
[2017-11-10] MEDS: LACTOBACILLUS ACIDOPHILUS 1 EACH TAB (FP) PO SCH (09:57)
[2017-11-10] MEDS: ALBUTEROL SO4 18 GM HFA INHALER IH PRN ×2 (09:58→22:12)
--- NOTE | 2017-11-10 11:19 | DS ---
Physical Examination Vital Signs: Vital Signs Temperature 97.3 F L 11/10/17 10:04 Pulse Rate 68 11/10/17 10:04 Respiratory Rate 20 11/10/17 10:04 Blood Pressure 125/65 11/10/17 10:04 O2 Sat by Pulse Oximetry (%) 93 L 11/09/17 21:00 Constitutional: Yes: No Distress, Calm Eyes: No: Sclera Icterus Cardiovascular: Yes: Regular Rate and Rhythm Respiratory: Yes: CTA Bilaterally Gastrointestinal: Yes: Soft Edema: No Labs: CBC, BMP 10/18/17 07:15 10/18/17 07:15 Discharge Summary Reason For Visit: FALL PAIN IN BOTH KNEES Current Active Problems Back pain (Acute) Bilateral knee pain (Acute) Fall (Acute) Gait instability (Acute) Hypothyroid (Acute) Intractable pain (Acute) 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) Hospital Course: Please refer to daily notes problem list and nurses' notes Patient has agreed to return to her home Follow up with her Primary care physician Dr Lim Condition: Fair - Instructions Diet, Activity, Other Instructions: Resume usual diet Follow up with Dr Lim Referrals: Imani Lim MD [Primary Care Provider] - Disposition: HOME - Home Medications Comprehensive Discharge Medication List: Ambulatory Orders Albuterol Sulfate Inhaler - [Ventolin HFA Inhaler -] 2 puff IH Q6H PRN #1 inhaler 11/10/17 Atorvastatin Ca [Lipitor] 20 mg NR DAILY 30 Days #30 tablet 11/10/17 Famotidine 10 mg PO DAILY #30 tablet 11/10/17 Levothyroxine [Synthroid -] 50 mcg PO DAILY@0700 30 Days #30 tablet 11/10/17 Metoprolol Succinate [Toprol XL -] 25 mg PO DAILY 30 Days #30 tab.sr.24h Montelukast Na [Singulair -] 10 mg PO DAILY #30 tablet 11/10/17 Tramadol HCl [Ultram -] 50 mg PO Q8H PRN #30 tablet MDD 3 11/10/17
[2017-11-10] MEDS: MAG HYDROX/AL HYDROX/SIMETH 30 ML UNIT-DOSE CUP PO PRN (12:01)
[2017-11-10] MEDS ORDERED: PT OWN MED DRAWER 7, Y5N ONE (20:38)
[2017-11-10] MEDS: HEPARIN NA (PORCINE) 5,000 UNITS/ML 1ML VIAL SQ SCH (22:09)
[2017-11-10] MEDS: ATORVASTATIN CA 20 MG TABLET (FP) PO SCH (22:10)
[2017-11-10] MEDS: MONTELUKAST NA 10 MG TABLET PO SCH (22:10)
[2017-11-11] MEDS: guaiFENesin/D-METHORPHAN HB 10 ML UNIT-DOSE CUPS PO PRN ×3 (06:37→22:02)
[2017-11-11] MEDS: ACETAMINOPHEN 325 MG TABLET (FP) PO PRN ×2 (06:37→21:59)
[2017-11-11] MEDS: LEVOTHYROXINE NA 50 MCG TABLET (FP) PO SCH (06:37)
[2017-11-11] MEDS: traMADol HCL 50 MG TABLET PO PRN (11:28)
[2017-11-11] MEDS: RANITIDINE HCL 150 MG TABLET (FP) PO SCH (11:28)
[2017-11-11] MEDS: HEPARIN NA (PORCINE) 5,000 UNITS/ML 1ML VIAL SQ SCH ×2 (11:28→22:00)
[2017-11-11] MEDS: LACTOBACILLUS ACIDOPHILUS 1 EACH TAB (FP) PO SCH (11:28)
[2017-11-11] MEDS: CYCLOBENZAPRINE HCL 10 MG TABLET (FP) PO SCH (11:29)
[2017-11-11] MEDS: METOPROLOL SUCCINATE 25 MG TAB.SR.24H (FP) PO SCH (11:29)
[2017-11-11] MEDS ORDERED: PT OWN MED DRAWER 7, Y5N ONE (20:43)
[2017-11-11] MEDS: MONTELUKAST NA 10 MG TABLET PO SCH (22:01)
[2017-11-11] MEDS: ATORVASTATIN CA 20 MG TABLET (FP) PO SCH (22:01)
[2017-11-11] MEDS: ALBUTEROL SO4 18 GM HFA INHALER IH PRN (22:02)
[2017-11-11] MEDS: FLUTICASONE PROP 0.05% 16 GM NASAL SPRAY NS PRN (22:02)
[2017-11-12] MEDS: ACETAMINOPHEN 325 MG TABLET (FP) PO PRN ×2 (06:34→21:37)
[2017-11-12] MEDS: guaiFENesin/D-METHORPHAN HB 10 ML UNIT-DOSE CUPS PO PRN ×3 (06:34→21:37)
[2017-11-12] MEDS: LEVOTHYROXINE NA 50 MCG TABLET (FP) PO SCH (06:34)
[2017-11-12] MEDS: LACTOBACILLUS ACIDOPHILUS 1 EACH TAB (FP) PO SCH (11:13)
[2017-11-12] MEDS: METOPROLOL SUCCINATE 25 MG TAB.SR.24H (FP) PO SCH (11:13)
[2017-11-12] MEDS: CYCLOBENZAPRINE HCL 10 MG TABLET (FP) PO SCH (11:13)
[2017-11-12] MEDS: RANITIDINE HCL 150 MG TABLET (FP) PO SCH (11:13)
[2017-11-12] MEDS: HEPARIN NA (PORCINE) 5,000 UNITS/ML 1ML VIAL SQ SCH ×2 (11:14→21:35)
--- NOTE | 2017-11-12 12:20 | PN ---
Progress Note (short form) - Note Progress Note: Patient seen and examined Chart reviewed Currently sitting up in bed, alert and appropriate. Room changed as documented in previous nurse's note. Persistence of bilateral knee pain which limits her ambulatory capacity. Stable low back discomfort. Describes improved nasal and respiratory congestion, previously having taken the inhalers and cough suppressant. Labs and notes reviewed. Patient will ultimately require TKRs according to Dr Mccarthy's note. Has previously been to rehab and is reluctant to return to a Nursing facility, although she may not have coverage days available Describes difficulty at her apartment, which she claims is currently uninhabitable. Social Service intervention ongoing. May need to be discharged with input from APS. PT notes reviewed. Still required close contact guarding of one for transfers and ambulation with rolling walker, and was previously able to walk 50 feet three times, tolerating FWB . Yesterday she sat in wheelchair and used her legs to move up and down the hallway Knee discomfort persists Left thumb discomfort evaluated by orthopedic service with x-ray assessment. Brace in place. Notes some sleep disturbance and does not tolerate Trazodone. Dr De Los Santos's note reviewed in regard to pain management. Previous CXR read as clear, with no active disease No nodule noted, although a CT scan would be more definitive in this regard. Social service intervention ongoing. Refused vital signs at times. Situation reviewed in regard to cleaning assessment. Selected Entries 11/12/17 11/12/17 09:15 10:00 Temperature 98.0 F Pulse Rate 74 Respiratory 18 Rate Blood Pressure 120/58 O2 Sat by Pulse 94 L Oximetry (%) Oxygen Delivery Room Air Method Chest Clear Cor RRR Abd Soft non-tender Ext No evidence of phlebitis No edema Diffuse degenerative joint disease. Evidence of joint deformity left thumb base MCP joint Brace in place Neuro No new focal deficits Alert and appropriate Assessment and Plan Knee pain Did not tolerate gabapentin May need to be home for 60 days before returning for elective TKR surgery, based on Medicare rules. Tramadol re-ordered Low back pain Stable HPL HTN Changed metoprolol tartrate (ordered as a once a day medication) to succinate 25 mg Hypothyroid TSH still elevated May require increased dose Has been on current dose for over one year according to the patient. Will increase to 50 mcg po daily Recheck TSH in 2-3 weeks H/O TIA as per notes URI Improved symptoms Constipation Miralax as needed Insomnia Hold off on further Rx for now Had previously been prescribed Trazodone, but is intolerant of this H/O Lung nodule noted from office records according to her PCP CXR reviewed May require outpatient CT for completeness Left thumb joint deformity Orthopedic assessment appreciated Splint in place Urinary incontinence Persistent, noted by nurses Disposition May require SNF/Rehab if unable to return home. Social service input to consider APS for placement. Efforts to have apartment cleaned in order to allow her to return there. Multiple issues complicate this plan. Administrative plan pending Await administrative decision. Rxs sent to pharmacy
[2017-11-12] MEDS: MAG HYDROX/AL HYDROX/SIMETH 30 ML UNIT-DOSE CUP PO PRN (19:58)
[2017-11-12] MEDS ORDERED: PT OWN MED DRAWER 7, Y5N ONE (20:07)
[2017-11-12] MEDS: FLUTICASONE PROP 0.05% 16 GM NASAL SPRAY NS PRN (21:36)
[2017-11-12] MEDS: ATORVASTATIN CA 20 MG TABLET (FP) PO SCH (21:36)
[2017-11-12] MEDS: MONTELUKAST NA 10 MG TABLET PO SCH (21:36)
[2017-11-12] MEDS: ALBUTEROL SO4 18 GM HFA INHALER IH PRN (21:37)
[2017-11-13] MEDS: LEVOTHYROXINE NA 50 MCG TABLET (FP) PO SCH (06:21)
[2017-11-13] MEDS: ACETAMINOPHEN 325 MG TABLET (FP) PO PRN (06:22)
[2017-11-13] MEDS: guaiFENesin/D-METHORPHAN HB 10 ML UNIT-DOSE CUPS PO PRN ×2 (06:22→21:37)
[2017-11-13] MEDS: CYCLOBENZAPRINE HCL 10 MG TABLET (FP) PO SCH (10:07)
[2017-11-13] MEDS: RANITIDINE HCL 150 MG TABLET (FP) PO SCH (10:08)
[2017-11-13] MEDS: HEPARIN NA (PORCINE) 5,000 UNITS/ML 1ML VIAL SQ SCH ×2 (10:08→21:30)
[2017-11-13] MEDS: METOPROLOL SUCCINATE 25 MG TAB.SR.24H (FP) PO SCH (10:08)
[2017-11-13] MEDS: LACTOBACILLUS ACIDOPHILUS 1 EACH TAB (FP) PO SCH (10:08)
[2017-11-13] MEDS: MONTELUKAST NA 10 MG TABLET PO SCH (21:30)
[2017-11-13] MEDS: ATORVASTATIN CA 20 MG TABLET (FP) PO SCH (21:30)
[2017-11-13] MEDS: traMADol HCL 50 MG TABLET PO PRN (21:37)
[2017-11-14] MEDS: LEVOTHYROXINE NA 50 MCG TABLET (FP) PO SCH (06:24)
--- NOTE | 2017-11-14 08:35 | PN ---
Progress Note (short form) - Note Progress Note: Patient seen and examined Chart reviewed Currently sitting up in bed, alert and appropriate. Room changed as documented in previous nurse's note. Persistence of bilateral knee pain which limits her ambulatory capacity. Stable low back discomfort. Describes improved nasal and respiratory congestion, previously having taken the inhalers and cough suppressant. Labs and notes reviewed. Patient will ultimately require TKRs according to Dr Mccarthy's note. Has previously been to rehab and is reluctant to return to a Nursing facility, although she may not have coverage days available Describes difficulty at her apartment, which she claims is currently uninhabitable. Social Service intervention ongoing. May need to be discharged with input from APS. PT notes reviewed. Still required close contact guarding of one for transfers and ambulation with rolling walker, and was previously able to walk 50 feet three times, tolerating FWB wit PT . Yesterday she again sat in wheelchair and used her legs to move up and down the hallway, but also walked without the walker with close guarding of one. Knee discomfort persists. Left thumb discomfort evaluated by orthopedic service with x-ray assessment. Brace in place. Notes some sleep disturbance and does not tolerate Trazodone. Dr De Los Santos's note reviewed in regard to pain management. Previous CXR read as clear, with no active disease No nodule noted, although a CT scan would be more definitive in this regard. Social service intervention ongoing. Refused vital signs at times. Situation reviewed in regard to cleaning assessment Selected Entries 11/13/17 11/13/17 18:00 21:00 Temperature 98.1 F Pulse Rate 72 Respiratory 20 Rate Blood Pressure 126/66 O2 Sat by Pulse 97 Oximetry (%) Oxygen Delivery Room Air Method . Chest Clear Cor RRR Abd Soft non-tender Ext No evidence of phlebitis No edema Diffuse degenerative joint disease. Evidence of joint deformity left thumb base MCP joint Brace in place Neuro No new focal deficits Alert and appropriate Assessment and Plan Knee pain Did not tolerate gabapentin May need to be home for 60 days before returning for elective TKR surgery, based on Medicare rules. Tramadol re-ordered Low back pain Stable HPL HTN Changed metoprolol tartrate (ordered as a once a day medication) to succinate 25 mg Hypothyroid TSH still elevated May require increased dose Has been on current dose for over one year according to the patient. Will increase to 50 mcg po daily Recheck TSH in 2-3 weeks H/O TIA as per notes URI Improved symptoms Constipation Miralax as needed Insomnia Hold off on further Rx for now Had previously been prescribed Trazodone, but is intolerant of this H/O Lung nodule noted from office records according to her PCP CXR reviewed May require outpatient CT for completeness Left thumb joint deformity Orthopedic assessment appreciated Splint in place Urinary incontinence Persistent, noted by nurses Disposition May require SNF/Rehab if unable to return home. Social service input to consider APS for placement. Efforts to have apartment cleaned in order to allow her to return there. Multiple issues complicate this plan. Administrative plan pending Await administrative decision. Rxs sent to pharmacy
[2017-11-14] MEDS: LACTOBACILLUS ACIDOPHILUS 1 EACH TAB (FP) PO SCH (10:29)
[2017-11-14] MEDS: RANITIDINE HCL 150 MG TABLET (FP) PO SCH (10:29)
[2017-11-14] MEDS: HEPARIN NA (PORCINE) 5,000 UNITS/ML 1ML VIAL SQ SCH ×2 (10:30→21:47)
[2017-11-14] MEDS: CYCLOBENZAPRINE HCL 10 MG TABLET (FP) PO SCH (10:30)
[2017-11-14] MEDS: METOPROLOL SUCCINATE 25 MG TAB.SR.24H (FP) PO SCH (10:30)
[2017-11-14] MEDS: traMADol HCL 50 MG TABLET PO PRN (15:02)
[2017-11-14] MEDS: MONTELUKAST NA 10 MG TABLET PO SCH (21:47)
[2017-11-14] MEDS: ATORVASTATIN CA 20 MG TABLET (FP) PO SCH (21:47)
[2017-11-15] MEDS: LEVOTHYROXINE NA 50 MCG TABLET (FP) PO SCH (06:42)
[2017-11-15 07:55] VITALS: TEMP 97.7
--- NOTE | 2017-11-15 08:45 | DS ---
Physical Examination Vital Signs: Vital Signs Temperature 97.7 F 11/14/17 14:24 Pulse Rate 85 11/14/17 14:24 Respiratory Rate 18 11/14/17 21:00 Blood Pressure 124/64 11/14/17 08:47 O2 Sat by Pulse Oximetry (%) 95 11/14/17 09:00 Constitutional: Yes: No Distress, Calm Eyes: No: Sclera Icterus Cardiovascular: Yes: Regular Rate and Rhythm Respiratory: Yes: Regular Gastrointestinal: Yes: Normal Bowel Sounds, Soft Edema: No Neurological: Yes: Alert, Oriented Labs: CBC, BMP 10/18/17 07:15 10/18/17 07:15 Discharge Summary Reason For Visit: FALL PAIN IN BOTH KNEES Current Active Problems Back pain (Chronic) Bilateral knee pain (Chronic) Gait instability (Chronic) Hypothyroid (Chronic) 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 Admission complicated by social issues. Will require medical follow up once home Recheck TSH as levothroxine dose was increased from 25 to 50 mcg while here due to mildly increased TSH level Condition: Fair - Instructions Diet, Activity, Other Instructions: Resume usual diet Follow up with Dr Lim Referrals: Imani Lim MD [Primary Care Provider] - Disposition: [facility] - Home Medications Comprehensive Discharge Medication List: Ambulatory Orders Albuterol Sulfate Inhaler - [Ventolin HFA Inhaler -] 2 puff IH Q6H PRN #1 inhaler 11/10/17 Atorvastatin Ca [Lipitor] 20 mg NR DAILY 30 Days #30 tablet 11/10/17 Famotidine 10 mg PO DAILY #30 tablet 11/10/17 Levothyroxine [Synthroid -] 50 mcg PO DAILY@0700 30 Days #30 tablet 11/10/17 Metoprolol Succinate [Toprol XL -] 25 mg PO DAILY 30 Days #30 tab.sr.24h Montelukast Na [Singulair -] 10 mg PO DAILY #30 tablet 11/10/17 Tramadol HCl [Ultram -] 50 mg PO Q8H PRN #30 tablet MDD 3 11/10/17
[2017-11-15 09:09] VITALS: BP 115/80; PULSE 79
[2017-11-15] MEDS: RANITIDINE HCL 150 MG TABLET (FP) PO SCH (09:13)
[2017-11-15] MEDS: CYCLOBENZAPRINE HCL 10 MG TABLET (FP) PO SCH (09:13)
[2017-11-15] MEDS: METOPROLOL SUCCINATE 25 MG TAB.SR.24H (FP) PO SCH (09:13)
[2017-11-15] MEDS: HEPARIN NA (PORCINE) 5,000 UNITS/ML 1ML VIAL SQ SCH (09:14)
[2017-11-15] MEDS: LACTOBACILLUS ACIDOPHILUS 1 EACH TAB (FP) PO SCH (09:14)
[2017-11-15] MEDS: guaiFENesin/D-METHORPHAN HB 10 ML UNIT-DOSE CUPS PO PRN (09:19)
[2017-11-15] MEDS ORDERED: PT OWN MED DRAWER 7, Y5N ONE (09:24)
[2017-11-15] MEDS: FLUTICASONE PROP 0.05% 16 GM NASAL SPRAY NS PRN (12:47)
== END 2017-11-15 14:33 | DRG 552 ==
LOC: JER 10:51 → JERBED 16:43 → J5S 20:29
PROVIDERS: ADMIT Internal Medicine; ATTEND Internal Medicine
DX: M51.87 Other intervertebral disc disorders, lumbosacral region (principal); M54.9 Dorsalgia, unspecified; E78.5 Hyperlipidemia, unspecified; I10 Essential (primary) hypertension; Z86.73 Personal history of transient ischemic attack (TIA), and cerebral infarction without residual deficits; E03.9 Hypothyroidism, unspecified; E66.9 Obesity, unspecified; R26.81 Unsteadiness on feet; Z68.33 Body mass index [BMI] 33.0-33.9, adult; F06.8 Other specified mental disorders due to known physiological condition; M48.061 Spinal stenosis, lumbar region without neurogenic claudication; M17.0 Bilateral primary osteoarthritis of knee; J06.9 Acute upper respiratory infection, unspecified; K59.00 Constipation, unspecified; G47.00 Insomnia, unspecified; R91.1 Solitary pulmonary nodule; J40 Bronchitis, not specified as acute or chronic; Z88.0 Allergy status to penicillin; S63.602A Unspecified sprain of left thumb, initial encounter; X58.XXXA Exposure to other specified factors, initial encounter; Y93.9 Activity, unspecified; Y92.238 Other place in hospital as the place of occurrence of the external cause; Y99.8 Other external cause status; R32 Unspecified urinary incontinence
CPT/HCPCS: 36415; 71020-TC; 72131-TC; 73110-TC-LT; 73130-TC-LT; 80048; 80053; 81003; 81015; 83735; 84100; 84443; 85025; 93005; 93010; 94640; 97116-GP; 97161-GP; 99284-25; J1644

== ENCOUNTER 2023-12-20 14:27 | Emergency (ER) | payer OTHER ==
[2023-12-20 14:40] VITALS: BMI 31.4
[2023-12-20] MEDS ORDERED: ACETAMINOPHEN 325 MG TABLET (FP) ONE (15:56)
[2023-12-20] MEDS: ACETAMINOPHEN 500 MG TABLET (FP) PO ONE (17:04)
[2023-12-20] MEDS ORDERED: oxyCODONE HCL 5 MG TABLET ONE (18:15)
[2023-12-20] MEDS: oxyCODONE HCL 5 MG TABLET PO ONE (18:20)
[2023-12-21] MEDS ORDERED: oxyCODONE HCL 5 MG TABLET ONE (01:33)
[2023-12-21] MEDS: oxyCODONE HCL 5 MG TABLET PO ONE (01:36)
[2023-12-21 04:47] VITALS: BP 130/78; PULSE 78; RESP 18; TEMP 98.3
== END 2023-12-21 04:48 | disposition home or self-care (01) ==
LOC: JER 14:27
DX: S52.572A Other intraarticular fracture of lower end of left radius, initial encounter for closed fracture (principal); S52.612A Displaced fracture of left ulna styloid process, initial encounter for closed fracture; W01.0XXA Fall on same level from slipping, tripping and stumbling without subsequent striking against object, initial encounter
CPT/HCPCS: 70450-TC; 71045-TC-FY; 72125-TC; 73070-TC-LT-FY; 73110-TC-LT-FY; 73130-TC-LT-FY; 99284-25